=== PATIENT | male | born 1980 | race Caucasian/White ===

== ENCOUNTER 2018-05-02 08:26 | Emergency (ER) | payer OTHER, SELFPAY ==
[2018-05-02 08:37] VITALS: BP 130/86; PULSE 60; RESP 15; TEMP 36.4; O2SAT 99; BMI 29.1
--- NOTE | 2018-05-02 10:03 | ED.EYEPROB ---
HPI - Eye Problem General Chief complaint: Eye Problems Stated complaint: LEFT EYE PROBLEM Time Seen by Provider: 05/02/18 09:33 Source: patient Mode of arrival: ambulatory Limitations: no limitations History of Present Illness HPI Narrative: Patient is a 37-year-old male who presents with left eye pain. 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 However over the last 5 days he has had increasing eye pain. Sensitive to light. No gross drainage from his eyes. He was having problems with his right ear and now is having significant left eye pain. He went to the doctor his ear seems to be fine now his eye is causing him more problems. Duration: constant Location: left eye Place: work Mechanism: none Related Data Previous Rx's Medication Instructions Recorded gentamicin 2 drop EYE-LEFT Q4HRWA #5 ml 05/02/18 hydrocodone-acetaminophen [[place]] 1 tab PO Q6H PRN #10 tab 05/02/18 Allergies Allergy/AdvReac Type Severity Reaction Status Date / Time No Known Drug Allergies Allergy Verified 05/02/18 08:37 Review of Systems Review of Systems GENERAL: Denies chills,fever HEENT: +eye pain, Denies throat pain RESPIRATORY: Denies dyspnea, cough, wheezing CARDIOVASCULAR: Denies chest pain, palpitations GASTROINTESTINAL: Denies nausea, vomiting MUSCULOSKELETAL: Denies extremity pain, injury SKIN: No rash, no laceration, no pruritus NEUROLOGIC: Denies weakness, dizziness, headache, numbness 8 point review of systems is negative except for those stated above and HPI PFSH Social History Smoking Status: Current every day smoker Social History Smoking Status: Current every day smoker Exam Initial Vital Signs Initial Vital Signs: Vital Signs Temperature 97.6 F 05/02/18 08:37 Pulse Rate 60 05/02/18 08:37 Respiratory Rate 15 05/02/18 08:37 Blood Pressure 130/86 05/02/18 08:37 Pulse Oximetry 99 05/02/18 08:37 GENERAL: Well-appearing, well-nourished and in no acute distress. EYES: extraocular muscles intact pupils equal round reactive to light. Left eye was treated with proparacaine, stained with fluorescein. dye uptake and foreign body seen on left eye at 8 or 9:00 position CARDIOVASCULAR: peripheral pulses in tact, cap refill <2 sec RESPIRATORY: No respiratory distress, speaks in full sentences without difficulty EXTREMITIES: Normal range of motion, no clubbing or edema. Neurovascularly intact NEUROLOGICAL: Cranial nerves II through XII grossly intact. Normal gait and speech. SKIN: Warm, dry, no petechiae, no rashes or lesions. Procedures Foreign Body EYE Time Out performed: Yes Location: eye (L) Topical anesthetic used: proparacaine Foreign body: metal Technique: cotton tip swab, needle and electric rosario Procedure performed under: direct visualization with magnification and slit-lamp Post-procedure medication: ophthalmic antibiotic Patient tolerated procedure: well Complications: incomplete foreign body removal Course Orders Ordered: Discontinued Medications Diphtheria/Tetanus/Acell Pertussis (Adacel) 0.5 ml IM .ONCE ONE Stop: 05/02/18 10:02 Last Admin: 05/02/18 10:20 Dose: 0.5 ml Vital Signs - 8 hr 05/02/18 08:37 05/02/18 10:44 Temperature 97.6 F Pulse Rate 60 57 L Respiratory Rate 15 18 Blood Pressure 130/86 143/93 H Pulse Oximetry 99 100 MDM - Eye Problem MDM Narrative Medical decision making narrative: most of left eye foreign body was removed. However small amount still remains. Recommended patient see Ophthalmology for further evaluation and removal. Discharge Plan Departure Patient Disposition: Home Clinical Impression: Acute foreign body of left eye Qualifiers: Encounter type: initial encounter Qualified Code(s): T15.92XA - Foreign body on external eye, part unspecified, left eye, initial encounter Discharge Date/Time: 05/02/18 10:44 Interventions: ED Discharge Assessment Last Done: 05/02/18 10:44 Instructions: DI for Corneal Foreign Body-Eye Activity Restrictions/Additional Instructions: *You have been diagnosed with left eye foreign body *What to do: most of the foreign body has been removed however some small amount still remains. He should see an hydrostatic tester for further removal. DO NOT WERE CONTACT UNTIL THIS IS CLEARED *Continue to take medications as directed --> FAXED TO [facility] IN [place] gentamicin ophthalmic drops every 4 hr while awake [place] 1 tablet every 6 hr if needed for severe pain or at night to help with sleep *Follow up with your primary care provider in 2-3 days, call Ophthalmology tomorrow, or go to office 1st thing in the morning *Return to ER if you should have increasing pain, swelling any new, worsening or concerning symptoms Prescriptions: New gentamicin 0.3 % drops 2 drop EYE-LEFT Q4HRWA Qty: 5 RF: 0 hydrocodone-acetaminophen [[place]] 5-325 mg tablet 1 tab PO Q6H PRN (Reason: pain) Qty: 10 RF: 0 Referrals: Domonique Romero MD [Physician] - Daniel Bah MD [Physician] -
--- NOTE | 2018-05-02 10:08 | ED_ITS ---
HPI - Eye Problem General Chief complaint: Eye Problems Stated complaint: LEFT EYE PROBLEM Time Seen by Provider: 05/02/18 09:33 Source: patient Mode of arrival: ambulatory Limitations: no limitations History of Present Illness HPI Narrative: Patient is a 37-year-old male who presents with left eye pain. 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 However over the last 5 days he has had increasing eye pain. Sensitive to light. No gross drainage from his eyes. He was having problems with his right ear and now is having significant left eye pain. He went to the doctor his ear seems to be fine now his eye is causing him more problems. Duration: constant Location: left eye Place: work Mechanism: none Related Data Previous Rx's Medication Instructions Recorded gentamicin 2 drop EYE-LEFT Q4HRWA #5 ml 05/02/18 hydrocodone-acetaminophen [[place]] 1 tab PO Q6H PRN #10 tab 05/02/18 Allergies Allergy/AdvReac Type Severity Reaction Status Date / Time No Known Drug Allergies Allergy Verified 05/02/18 08:37 Review of Systems Review of Systems GENERAL: Denies chills,fever HEENT: +eye pain, Denies throat pain RESPIRATORY: Denies dyspnea, cough, wheezing CARDIOVASCULAR: Denies chest pain, palpitations GASTROINTESTINAL: Denies nausea, vomiting MUSCULOSKELETAL: Denies extremity pain, injury SKIN: No rash, no laceration, no pruritus NEUROLOGIC: Denies weakness, dizziness, headache, numbness 8 point review of systems is negative except for those stated above and HPI PFSH Social History Smoking Status: Current every day smoker Social History Smoking Status: Current every day smoker Exam Initial Vital Signs Initial Vital Signs: Vital Signs Temperature 97.6 F 05/02/18 08:37 Pulse Rate 60 05/02/18 08:37 Respiratory Rate 15 05/02/18 08:37 Blood Pressure 130/86 05/02/18 08:37 Pulse Oximetry 99 05/02/18 08:37 GENERAL: Well-appearing, well-nourished and in no acute distress. EYES: extraocular muscles intact pupils equal round reactive to light. Left eye was treated with proparacaine, stained with fluorescein. dye uptake and foreign body seen on left eye at 8 or 9:00 position CARDIOVASCULAR: peripheral pulses in tact, cap refill <2 sec RESPIRATORY: No respiratory distress, speaks in full sentences without difficulty EXTREMITIES: Normal range of motion, no clubbing or edema. Neurovascularly intact NEUROLOGICAL: Cranial nerves II through XII grossly intact. Normal gait and speech. SKIN: Warm, dry, no petechiae, no rashes or lesions. Procedures Foreign Body EYE Time Out performed: Yes Location: eye (L) Topical anesthetic used: proparacaine Foreign body: metal Technique: cotton tip swab, needle and electric rosario Procedure performed under: direct visualization with magnification and slit-lamp Post-procedure medication: ophthalmic antibiotic Patient tolerated procedure: well Complications: incomplete foreign body removal Course Orders Ordered: Discontinued Medications Diphtheria/Tetanus/Acell Pertussis (Adacel) 0.5 ml IM .ONCE ONE Stop: 05/02/18 10:02 Last Admin: 05/02/18 10:20 Dose: 0.5 ml Vital Signs - 8 hr 05/02/18 08:37 05/02/18 10:44 Temperature 97.6 F Pulse Rate 60 57 L Respiratory Rate 15 18 Blood Pressure 130/86 143/93 H Pulse Oximetry 99 100 MDM - Eye Problem MDM Narrative Medical decision making narrative: most of left eye foreign body was removed. However small amount still remains. Recommended patient see Ophthalmology for further evaluation and removal. Discharge Plan Departure Patient Disposition: Home Clinical Impression: Acute foreign body of left eye Qualifiers: Encounter type: initial encounter Qualified Code(s): T15.92XA - Foreign body on external eye, part unspecified, left eye, initial encounter Discharge Date/Time: 05/02/18 10:44 Interventions: ED Discharge Assessment Last Done: 05/02/18 10:44 Instructions: DI for Corneal Foreign Body-Eye Activity Restrictions/Additional Instructions: *You have been diagnosed with left eye foreign body *What to do: most of the foreign body has been removed however some small amount still remains. He should see an manager store for further removal. DO NOT WERE CONTACT UNTIL THIS IS CLEARED *Continue to take medications as directed --> FAXED TO [facility] IN [place] gentamicin ophthalmic drops every 4 hr while awake [place] 1 tablet every 6 hr if needed for severe pain or at night to help with sleep *Follow up with your primary care provider in 2-3 days, call Ophthalmology tomorrow, or go to office 1st thing in the morning *Return to ER if you should have increasing pain, swelling any new, worsening or concerning symptoms Prescriptions: New gentamicin 0.3 % drops 2 drop EYE-LEFT Q4HRWA Qty: 5 RF: 0 hydrocodone-acetaminophen [[place]] 5-325 mg tablet 1 tab PO Q6H PRN (Reason: pain) Qty: 10 RF: 0 Referrals: Domonique Romero MD [Physician] - Daniel Bah MD [Physician] -
[2018-05-02] MEDS: TET,DIPH,PERTUSS(ACELL),VAC/PF 0.5 ML SYRINGE IM (10:20)
[2018-05-02 10:44] VITALS: BP 143/93; PULSE 57; RESP 18; O2SAT 100
== END 2018-05-02 10:44 | disposition home or self-care (01) ==
PROVIDERS: Emergency Provider Emergency Medicine
DX: T15.92XA Foreign body on external eye, part unspecified, left eye, initial encounter (principal)
CPT/HCPCS: 65222; 90471; 99283; 90715

== ENCOUNTER → 2018-05-19 18:04 | Outpatient (CLI) | payer OTHER, SELFPAY | PROVIDERS: Visit Provider Physician Assistant | DX: L08.9 Local infection of the skin and subcutaneous tissue, unspecified (principal); S61.012A Laceration without foreign body of left thumb without damage to nail, initial encounter | CPT/HCPCS: 87070; 87075; 87077; 87147; 87186; 87205 ==

== ENCOUNTER → 2018-07-03 08:57 | Outpatient (CLI) | payer OTHER, SELFPAY ==
--- NOTE | 2018-07-03 09:00 | DI.RAD.S_ITS ---
PROCEDURE: XR KNEE RT 3V INDICATIONS: Pain and swelling R knee - tibial tuberosity TECHNIQUE: 3 views of the knee were acquired. COMPARISON: None. FINDINGS: Bones: There are postoperative findings from prior anterior cruciate ligament reconstruction. No hardware complication. Alignment is anatomic. No acute fractures or dislocations. No suspicious bony lesions. Soft tissues: No substantial suprapatellar joint effusion. No suspicious soft tissue calcifications. IMPRESSION: Postoperative findings of prior anterior cruciate ligament repair of the right knee. No acute radiographic abnormalities. Dictated by: Jack Palmer M.D. on 07/03/2018 at 19:40 Approved by: Jack Palmer M.D. on 07/03/2018 at 19:42
[2018-07-03 09:55] LABS: Alanine Aminotransferase 46 IU/L (21-72); Albumin 4.5 g/dL (3.5-5.0); Albumin Globulin Ratio 1.6 (1.0-2.8); Alkaline Phosphatase 56 U/L (38-126); Aspartate Aminotransferase 31 IU/L (17-59); BUN Creatinine Ratio 17.8 (6-22); Bilirubin Total 0.4 mg/dL (0.2-1.3); Blood Urea Nitrogen 16 mg/dL (9-20); Calcium 9.1 mg/dL (8.4-10.2); Carbon Dioxide 23 mmol/L (22-32); Chloride 106 mmol/L (98-107); Cholesterol 200 mg/dL (140-199); Estimated Glomerular Filt Rate > 60.0 mL/min (>60); Globulin 2.8 g/dL (1.7-4.1); Glucose 105 mg/dL (70-100); HDL Cholesterol 43 mg/dL (40-60); HEMOLYSIS < 15 (0-50); LDL Cholesterol Calculated 142 mg/dL (<100); Potassium 4.3 mmol/L (3.4-5.1); Sodium 139 mmol/L (137-145); Total Protein 7.3 g/dL (6.3-8.2); Triglycerides 77 mg/dL (35-150); Uric Acid 5.4 mg/dL (3.5-8.5)
[2018-07-03 10:23] LABS: Add Manual Diff / Slide Review NO; Basophils Absolute Auto 100 /uL (0-100); Basophils Percent Auto 1.1 % (0-2); Eosinophils Absolute Auto 200 /uL (0-450); Eosinophils Percent Auto 3.3 % (2-4); Hematocrit 48.6 % (41-53); Hemoglobin 16.5 g/dL (13.5-17.5); Lymphocytes Absolute Auto 1900 /uL (1100-4500); Lymphocytes Percent Auto 31.4 % (25-40); Mean Corpuscular Hemoglobin 30.4 PG (26-34); Mean Corpuscular Volume 89.6 fL (80-100); Monocytes Absolute Auto 700 /uL (0-900); Monocytes Percent Auto 12.2 % (3-14); Neutrophils Absolute Auto 3200 /uL (1500-7000); Platelet Count 280 X10^3/uL (150-400); Red Blood Cell Count 5.42 X10^6/uL (4.5-5.9); Red Cell Distribution Width 12.8 % (11.6-14.8); White Blood Cell Count 6.1 X10^3/uL (4.5-11.0)
[2018-07-03 10:54] LABS: HEMOLYSIS 21 (0-50); Iron 111 ug/dL (49-181)
[2018-07-03 11:05] LABS: Percent Iron Saturation 35 % (20-50); Total Iron Binding Capacity 313 ug/dL (261-462); Transferrin 247 mg/dL (206-381)
== END ==
PROVIDERS: PCP Physician Assistant; Visit Provider Physician Assistant
DX: M25.561 Pain in right knee (principal); G89.29 Other chronic pain; F17.200 Nicotine dependence, unspecified, uncomplicated; R53.83 Other fatigue; Z87.19 Personal history of other diseases of the digestive system; Z87.442 Personal history of urinary calculi; Z13.220 Encounter for screening for lipoid disorders; Z13.6 Encounter for screening for cardiovascular disorders
CPT/HCPCS: 36415; 73562; 80053; 80061; 83540; 83550; 84550; 85025

== ENCOUNTER → 2018-11-29 09:55 | Outpatient (CLI) | payer OTHER, SELFPAY ==
--- NOTE | 2018-11-29 09:58 | DI.RAD.S_ITS ---
PROCEDURE: XR CHEST 2V INDICATIONS: chest injury TECHNIQUE: 2 views of the chest were acquired. COMPARISON: [facility], , CHEST 1 VIEW, 11/14/2016, 21:55. FINDINGS: Surgical changes and devices: None. Lungs and pleura: Lungs are clear. No pleural effusions or pneumothorax. Mediastinum: Mediastinal contours are normal. Heart size is normal. Bones and chest wall: No suspicious bony abnormalities. An old injury of the distal right clavicle appears to be present, probably not significantly changed given differences in imaging technique since the previous exam. Soft tissues appear unremarkable. IMPRESSION: Negative chest. No acute cardiopulmonary process is evident. Dictated by: Roger Gardiner M.D. on 11/29/2018 at 9:11 Approved by: Roger Gardiner M.D. on 11/29/2018 at 9:11
== END ==
PROVIDERS: Family Provider Physician Assistant; PCP Physician Assistant; Visit Provider Physician Assistant
DX: S29.9XXA Unspecified injury of thorax, initial encounter (principal)
CPT/HCPCS: 71046

== ENCOUNTER → 2019-01-01 08:27 | Outpatient (CLI) | payer OTHER, SELFPAY ==
[2019-01-01 09:43] LABS: Cholesterol 225 mg/dL (140-199); HDL Cholesterol 42 mg/dL (40-60); LDL Cholesterol Calculated 155 mg/dL (<100); Triglycerides 141 mg/dL (35-150)
== END ==
PROVIDERS: PCP Physician Assistant; Visit Provider Physician Assistant
DX: E78.9 Disorder of lipoprotein metabolism, unspecified (principal)
CPT/HCPCS: 36415; 80061

== ENCOUNTER 2019-02-04 14:39 | Emergency (ER) | payer OTHER, SELFPAY ==
[2019-02-04 14:42] VITALS: BP 126/78; PULSE 68; RESP 16; TEMP 36.6; O2SAT 98; BMI 28.3
--- NOTE | 2019-02-04 15:21 | DI.CT.S_ITS ---
PROCEDURE: CT ABDOMEN PELVIS W CON INDICATIONS: LLQ pain TECHNIQUE: After the administration of intravenous contrast, 5 mm thick sections acquired from the diaphragm to the symphysis. 5 mm coronal and sagittal reformats were acquired. For radiation dose reduction, the following was used: automated exposure control, adjustment of mA and/or kV according to patient size. COMPARISON: None. FINDINGS: Image quality: Excellent. ABDOMEN: Lung bases: Lung bases are clear. Heart size is normal. Solid organs: Liver is normal in size and enhancement. Gallbladder is unremarkable. Biliary system is non dilated. Pancreas enhances normally. Spleen is normal in size and enhancement. No adrenal nodules. Kidneys demonstrate normal size and enhancement, without hydronephrosis. There are 2 tiny nonobstructing right renal stones and a 3 mm nonobstructing left renal stone. Peritoneum and bowel: Bowel loops demonstrate normal wall thickness and caliber. Sigmoid diverticulosis. Diverticulitis at the level of the rectosigmoid junction with inflammatory change and minimal stranding and fluid in the subjacent fat. No free air or abscess cavity. Nodes and vessels: No retroperitoneal or mesenteric adenopathy by size criteria. Aorta and inferior vena cava are normal in size. Miscellaneous: No ventral hernias. PELVIS: Genitourinary: Bladder wall thickness is normal. Miscellaneous: No inguinal hernias or adenopathy. Bones: No suspicious bony lesions. No vertebral body compression fractures. IMPRESSION: 1. Uncomplicated diverticulitis of the rectosigmoid junction. 2. Bilateral nonobstructing renal calculi. Dictated by: Nirmal Woodard M.D. on 02/04/2019 at 16:12 Approved by: Nirmal Woodard M.D. on 02/04/2019 at 16:15
--- NOTE | 2019-02-04 15:24 | ED_ITS ---
HPI - Abdominal Pain General Chief Complaint: Abdominal Pain Stated Complaint: bloating/pain/loose stools x3-4 days Time Seen by Provider: 02/04/19 15:06 Source: patient Mode of arrival: Ambulatory Limitations: no limitations History of Present Illness HPI narrative: Patient is a 38-year-old male history of diverticulitis and kidney stones. He states that he thinks his diverticulitis now it has been ongoing for the last few days. He has some left lower quadrant pain he feels nauseous at times but no vomiting decrease in appetite. I had 1 episode of bright red bloody stool but none since. He says that this smell is quite foul. Typically does get antibiotics and help clear him. He does have pain in his t esticles though and some pressure in his suprapubic area. He denies is any flank pain this does not feel like a kidney stone. MD complaint: abdominal pain Related Data Previous Rx's Medication Instructions Recorded rosuvastatin 10 mg tablet 10 mg PO BEDTIME #45 tab 01/18/19 ciprofloxacin HCl [Cipro] 500 mg PO Q12H #14 tab 02/04/19 metronidazole [Flagyl] 500 mg PO Q8H #21 tab 02/04/19 Allergies Allergy/AdvReac Type Severity Reaction Status Date / Time No Known Drug Allergies Allergy Verified 02/04/19 14:47 Review of Systems Review of Systems Narrative: GENERAL: Denies chills, fatigue, malaise, fever, sweats, travel HEENT: Denies sinus pain, ear pain, sore throat, difficulty swallowing, neck pain RESPIRATORY: Denies dyspnea, cough, wheezing, hemoptysis, sputum. CARDIOVASCULAR: Denies chest pain, palpitations, orthopnea, edema GASTROINTESTINAL: See HPI : Denies dysuria, frequency, incontinence, hematuria, urinary retention, flank pain. MUSCULOSKELETAL: Denies weakness, joint pain, or bony pain SKIN: No rash, no erythema, no pruritus NEUROLOGIC: Denies weakness, dizziness, headache, numbness, change in speech, confusion PSYCHIATRIC: No concerning psychosocial issues. 12 point review of systems is negative except for those stated above and HPI Patient History Medical History History of diverticulitis (Chronic) History of gout (Chronic) History of kidney stones (Chronic) Social History Smoking Status: Current every day smoker Tobacco: How many years used: 18 quit status: considering quitting (I would like to talk to Celina about starting Chanitix if it is an option.) second hand exposure: Yes ('a little bit) alcohol intake: current (a couple of beers a week. ) substance use type: marijuana (I smoke marijuana every day. ) alcohol intake frequency: 3 or more drinks per day Substance Use Type: marijuana Exam Initial Vital Signs Initial Vital Signs: Vital Signs Temperature 97.9 F 02/04/19 14:42 Pulse Rate 68 02/04/19 14:42 Respiratory Rate 16 02/04/19 14:42 Blood Pressure 126/78 02/04/19 14:42 Pulse Oximetry 98 02/04/19 14:42 GENERAL: Well-appearing, well-nourished and in no acute distress. HEENT: Head atraumatic,EOMI, pupils reactive, face symmetric CARDIOVASCULAR: Regular rate and rhythm without murmurs, rubs or gallops. RESPIRATORY: Breath sounds equal bilaterally, no wheezes rales or rhonchi. ABDOMEN: Soft, mild left lower quadrant pain no guarding or rebound : No CVA tenderness EXTREMITIES: Normal range of motion, no clubbing or edema. Neurovascularly intact NEUROLOGICAL: Alert and oriented x4.Normal gait and speech. SKIN: Warm, dry, no laceration, no petechiae, no rashes or lesions. Course Orders Ordered: ED Orders 02/04/19 15:21 CT abdomen pelvis w con Stat 02/04/19 15:38 Complete Blood Count AUTO DIFF Stat Comprehensive Metabolic Panel Stat Lipase Stat Vital Signs Vital signs: Vital Signs - 8 hr 02/04/19 14:42 02/04/19 17:00 Temperature 97.9 F 97.9 F Pulse Rate 68 63 Respiratory Rate 16 16 Blood Pressure 126/78 120/71 Pulse Oximetry 98 99 MDM - Abdominal Pain Lab Data Attestation: I reviewed the patient's lab results. Result diagrams: 02/04/19 15:38 02/04/19 15:38 Labs: Lab Results 02/04/19 02/04/19 Range/Units 15:38 15:38 WBC 15.0 H (4.5-11.0) X10^3/uL RBC 5.22 (4.5-5.9) X10^6/uL Hgb 15.9 (13.5-17.5) g/dL Hct 46.6 (41-53) % MCV 89.3 (80-100) fL MCH 30.6 (26-34) PG MCHC 34.2 (30-36) % RDW 12.5 (11.6-14.8) % Plt Count 243 (150-400) X10^3/uL Neut % (Auto) 74.9 (50-75) % Lymph % (Auto) 13.4 L (25-40) % Evang[place] % (Auto) 10.3 (3-14) % Eos % (Auto) 1.0 L (2-4) % Baso % (Auto) 0.4 (0-2) % Neut # (Auto) 35385 H (5601-5740) /uL Lymph # (Auto) 2000 (8827-3467) /uL Evangeline # (Auto) 1600 H (0-900) /uL Eos # (Auto) 200 (0-450) /uL Baso # (Auto) 100 (0-100) /uL Sodium 138 (137-145) mmol/L Potassium 3.9 (3.4-5.1) mmol/L Chloride 104 (98-107) mmol/L Carbon Dioxide 25 (22-32) mmol/L BUN 13 (9-20) mg/dL Creatinine 0.90 (0.66-1.25) mg/dL Estimated GFR > 60.0 (>60) mL/min BUN/Creatinine Ratio 14.4 (6-22) Glucose 91 (70-100) mg/dL Calcium 9.3 (8.4-10.2) mg/dL Total Bilirubin 0.8 (0.2-1.3) mg/dL AST 33 (17-59) IU/L ALT 51 H (<50) IU/L Alkaline Phosphatase 85 (38-126) U/L Total Protein 7.3 (6.3-8.2) g/dL Albumin 4.5 (3.5-5.0) g/dL Globulin 2.8 (1.7-4.1) g/dL Albumin/Globulin Ratio 1.6 (1.0-2.8) Lipase 53 (23-300) U/L Point of care testing: Urine Dip Bedside Urine Glucose Negative Bedside Urine Bilirubin - Negative Bedside Urine Ketone +/- 5 Urine Specific [place] 1.015 Bedside Urine Occult Blood - Negative Bedside Urine pH 6.0 Bedside Urine Protein - Negative Bedside Urine Urobilinogen - Negative Bedside Urine Nitrite - Negative Bedside Urine Leukocytes - Negative Esterase Imaging Data CT scan - abdomen: Radiologist's impression: PROCEDURE: CT ABDOMEN PELVIS W CON INDICATIONS: LLQ pain TECHNIQUE: After the administration of intravenous contrast, 5 mm thick sections acquired from the diaphragm to the symphysis. 5 mm coronal and sagittal reformats were acquired. For radiation dose reduction, the following was used: automated exposure control, adjustment of mA and/or kV according to patient size. COMPARISON: None. FINDINGS: Image quality: Excellent. ABDOMEN: Lung bases: Lung bases are clear. Heart size is normal. Solid organs: Liver is normal in size and enhancement. Gallbladder is unremarkable. Biliary system is non dilated. Pancreas enhances normally. Spleen is normal in size and enhancement. No adrenal nodules. Kidneys demonstrate normal size and enhancement, without hydronephrosis. There are 2 tiny nonobstructing right renal stones and a 3 mm nonobstructing left renal stone. Peritoneum and bowel: Bowel loops demonstrate normal wall thickness and caliber. Sigmoid diverticulosis. Diverticulitis at the level of the rectosigmoid junction with inflammatory change and minimal stranding and fluid in the subjacent fat. No free air or abscess cavity. Nodes and vessels: No retroperitoneal or mesenteric adenopathy by size crite mike. Aorta and inferior vena cava are normal in size. Miscellaneous: No ventral hernias. PELVIS: Genitourinary: Bladder wall thickness is normal. Miscellaneous: No inguinal hernias or adenopathy. Bones: No suspicious bony lesions. No vertebral body compression fractures. IMPRESSION: 1. Uncomplicated diverticulitis of the rectosigmoid junction. 2. Bilateral nonobstructing renal calculi. Dictated by: Nirmal Woodard M.D. on 02/04/2019 at 16:12 MDM Narrative Medical decision making narrative: The patient has leukocytosis of 15. Diverticulitis identified on CT. No complications will start him on Cipro and Flagyl. Discharge Plan Departure Patient Disposition: Home Clinical Impression: Diverticulitis Discharge Date/Time: 02/04/19 17:00 Instructions: DI for Diverticulitis Activity Restrictions/Additional Instructions: *You have been diagnosed with diverticulitis *What to do: *Continue to take medications as directed--> SENT TO [facility] IN [place] Cipro 500 mg twice a day for 7 days Flagyl 500 mg 3 times a day for 7 days *Follow up with your primary care provider in 2-3 days *Return to ER if you should have increasing abdominal pain bloody bowel meds persistent vomiting or any new, worsening or concerning symptoms Prescriptions: New ciprofloxacin HCl [Cipro] 500 mg tablet 500 mg PO Q12H Qty: 14 RF: 0 metronidazole [Flagyl] 500 mg tablet 500 mg PO Q8H Qty: 21 RF: 0 No Action rosuvastatin 10 mg tablet 10 mg PO BEDTIME Qty: 45 RF: 1 Referrals: Sarika Marie PA-C [Primary Care Provider] -
[2019-02-04 15:47] LABS: Add Manual Diff / Slide Review NO; Basophils Absolute Auto 100 /uL (0-100); Basophils Percent Auto 0.4 % (0-2); Eosinophils Absolute Auto 200 /uL (0-450); Hematocrit 46.6 % (41-53); Hemoglobin 15.9 g/dL (13.5-17.5); Lymphocytes Absolute Auto 2000 /uL (1100-4500); Lymphocytes Percent Auto 13.4 % (25-40); Mean Corpuscular HGB Conc 34.2 % (30-36); Mean Corpuscular Hemoglobin 30.6 PG (26-34); Mean Corpuscular Volume 89.3 fL (80-100); Monocytes Absolute Auto 1600 /uL (0-900); Monocytes Percent Auto 10.3 % (3-14); Neutrophils Absolute Auto 11300 /uL (1500-7000); Neutrophils Percent Auto 74.9 % (50-75); Platelet Count 243 X10^3/uL (150-400); Red Blood Cell Count 5.22 X10^6/uL (4.5-5.9); Red Cell Distribution Width 12.5 % (11.6-14.8)
[2019-02-04 15:59] LABS: Alanine Aminotransferase 51 IU/L (<50); Albumin 4.5 g/dL (3.5-5.0); Albumin Globulin Ratio 1.6 (1.0-2.8); Alkaline Phosphatase 85 U/L (38-126); Aspartate Aminotransferase 33 IU/L (17-59); BUN Creatinine Ratio 14.4 (6-22); Bilirubin Total 0.8 mg/dL (0.2-1.3); Blood Urea Nitrogen 13 mg/dL (9-20); Calcium 9.3 mg/dL (8.4-10.2); Carbon Dioxide 25 mmol/L (22-32); Chloride 104 mmol/L (98-107); Estimated Glomerular Filt Rate > 60.0 mL/min (>60); Globulin 2.8 g/dL (1.7-4.1); Glucose 91 mg/dL (70-100); HEMOLYSIS < 15 (0-50); Lipase 53 U/L (23-300); Potassium 3.9 mmol/L (3.4-5.1); Sodium 138 mmol/L (137-145); Total Protein 7.3 g/dL (6.3-8.2)
[2019-02-04 17:00] VITALS: BP 120/71; PULSE 63; RESP 16; TEMP 36.6; O2SAT 99
== END 2019-02-04 17:00 | disposition home or self-care (01) ==
PROVIDERS: Emergency Provider Emergency Medicine; PCP Physician Assistant
DX: K57.92 Diverticulitis of intestine, part unspecified, without perforation or abscess without bleeding (principal); K92.1 Melena; R11.0 Nausea; N50.819 Testicular pain, unspecified; Z87.442 Personal history of urinary calculi; F12.920 Cannabis use, unspecified with intoxication, uncomplicated
CPT/HCPCS: 36415; 74177; 80053; 81003; 83690; 85025; 99282; 99284

== ENCOUNTER → 2019-03-19 08:18 | Outpatient (CLI) | payer OTHER, SELFPAY ==
[2019-03-19 10:28] LABS: Alanine Aminotransferase 118 IU/L (<50); Albumin 4.7 g/dL (3.5-5.0); Alkaline Phosphatase 75 U/L (38-126); Aspartate Aminotransferase 74 IU/L (17-59); BUN Creatinine Ratio 15.6 (6-22); Bilirubin Total 0.7 mg/dL (0.2-1.3); Blood Urea Nitrogen 14 mg/dL (9-20); Calcium 9.7 mg/dL (8.4-10.2); Carbon Dioxide 23 mmol/L (22-32); Chloride 107 mmol/L (98-107); Cholesterol 155 mg/dL (140-199); Estimated Glomerular Filt Rate > 60.0 mL/min (>60); Globulin 2.4 g/dL (1.7-4.1); Glucose 103 mg/dL (70-100); HDL Cholesterol 45 mg/dL (40-60); HEMOLYSIS < 15 (0-50); LDL Cholesterol Calculated 78 mg/dL (<100); Potassium 4.9 mmol/L (3.4-5.1); Sodium 138 mmol/L (137-145); Total Protein 7.1 g/dL (6.3-8.2); Triglycerides 160 mg/dL (35-150)
== END ==
PROVIDERS: PCP Physician Assistant; Visit Provider Physician Assistant
DX: E78.2 Mixed hyperlipidemia (principal)
CPT/HCPCS: 36415; 80053; 80061

== ENCOUNTER → 2019-05-12 15:19 | Outpatient (CLI) | payer OTHER, SELFPAY ==
[2019-05-12 16:17] LABS: Add Manual Diff / Slide Review NO; Basophils Absolute Auto 0 /uL (0-100); Basophils Percent Auto 0.1 % (0-2); Eosinophils Absolute Auto 100 /uL (0-450); Eosinophils Percent Auto 0.7 % (2-4); Hematocrit 47.1 % (41-53); Hemoglobin 16.2 g/dL (13.5-17.5); Lymphocytes Absolute Auto 1600 /uL (1100-4500); Lymphocytes Percent Auto 8.5 % (25-40); Mean Corpuscular HGB Conc 34.5 % (30-36); Mean Corpuscular Hemoglobin 30.6 PG (26-34); Mean Corpuscular Volume 88.9 fL (80-100); Monocytes Absolute Auto 1900 /uL (0-900); Monocytes Percent Auto 9.8 % (3-14); Neutrophils Absolute Auto 15600 /uL (1500-7000); Neutrophils Percent Auto 80.9 % (50-75); Platelet Count 267 X10^3/uL (150-400); Red Blood Cell Count 5.29 X10^6/uL (4.5-5.9); Red Cell Distribution Width 12.9 % (11.6-14.8); White Blood Cell Count 19.3 X10^3/uL (4.5-11.0)
[2019-05-12 17:09] LABS: Alanine Aminotransferase 60 IU/L (<50); Albumin 4.7 g/dL (3.5-5.0); Albumin Globulin Ratio 1.5 (1.0-2.8); Alkaline Phosphatase 90 U/L (38-126); Aspartate Aminotransferase 43 IU/L (17-59); BUN Creatinine Ratio 15.6 (6-22); Bilirubin Total 0.8 mg/dL (0.2-1.3); Blood Urea Nitrogen 14 mg/dL (9-20); Calcium 9.9 mg/dL (8.4-10.2); Carbon Dioxide 26 mmol/L (22-32); Chloride 104 mmol/L (98-107); Estimated Glomerular Filt Rate > 60.0 mL/min (>60); Globulin 3.2 g/dL (1.7-4.1); Glucose 96 mg/dL (70-100); HEMOLYSIS < 15 (0-50); Potassium 3.9 mmol/L (3.4-5.1); Sodium 140 mmol/L (137-145); Total Protein 7.9 g/dL (6.3-8.2)
== END ==
PROVIDERS: PCP Physician Assistant
DX: K57.92 Diverticulitis of intestine, part unspecified, without perforation or abscess without bleeding (principal)
CPT/HCPCS: 36415; 80053; 85025

== ENCOUNTER → 2020-06-06 14:15 | Outpatient (CLI) | payer OTHER, SELFPAY ==
--- NOTE | 2020-06-06 14:17 | DI.RAD.S_ITS ---
PROCEDURE: XR SHOULDER RT MIN 2V INDICATIONS: shoulder strain reduced ROM TECHNIQUE: 3 views of the shoulder were acquired. COMPARISON: None. FINDINGS: Bones: Mild right acromioclavicular joint osteoarthritis. Curvilinear ossification noted superior to the distal clavicle which could represent heterotopic calcification versus old avulsion injury. No suspicious bony lesions. Visualized ribs appear intact. Soft tissues: No suspicious soft tissue calcifications. IMPRESSION: 1. Mild right acromioclavicular joint osteoarthritis. 2. Heterotopic calcification adjacent to the distal right clavicle versus chronic avulsion injury. Dictated by: Darya Blum MD, PhD on 06/06/2020 at 14:45 Approved by: Darya Blum MD, PhD on 06/06/2020 at 14:47
== END ==
PROVIDERS: Referring Provider Student in an Organized Health Care Education/Training Program; Visit Provider Student in an Organized Health Care Education/Training Program
DX: S43.401A Unspecified sprain of right shoulder joint, initial encounter (principal); M19.011 Primary osteoarthritis, right shoulder
CPT/HCPCS: 73030

== ENCOUNTER 2020-06-11 16:54 | Emergency (ER) | payer OTHER, SELFPAY ==
[2020-06-11 16:59] VITALS: BP 139/87; PULSE 60; RESP 16; TEMP 36.6; O2SAT 98; BMI 25.0
[2020-06-11 17:48] LABS: Bacteria Urine None Seen
--- NOTE | 2020-06-11 18:01 | DI.CT.S_ITS ---
PROCEDURE: CT KIDNEY URETER BLADDER (KUB) INDICATIONS: severe RLQ and flank pain, hematuria TECHNIQUE: Noncontrast 5 mm thick sections acquired from the diaphragms to the symphysis. 5 mm thick coronal and sagittal reformats were then performed. For radiation dose reduction, the following was used: automated exposure control, adjustment of mA and/or kV according to patient size. COMPARISON: [facility], CT, KIDNEY/ URETER/BLADDER, 10/17/2016, 10:04. FINDINGS: Image quality: Excellent. Lung bases: Lung bases are clear. Heart size is normal. Tiny hiatal hernia. Urinary system: There is a 3 mm in the mid right ureter. There is mild right hydronephrosis. There is mild right ureteral stranding and perinephric stranding. Bilateral nonobstructive renal calculi are present. No left hydronephrosis. Both kidneys are normal in size. Both ureters appear non-dilated throughout their expected courses. Bladder wall thickness is normal; no calcified bladder stones. Other solid organs: Liver is normal in size. Gallbladder is normal. Pancreas is normal in contours. Spleen is normal in size. No adrenal nodules. Peritoneum and bowel: There are scattered renal colonic diverticula. No diverticulitis. Unenhanced bowel loops demonstrate normal wall thickness and caliber. Normal appendix. No free fluid or air. Nodes and vessels: No retroperitoneal or mesenteric adenopathy by size criteria. Aorta and inferior vena cava are normal in caliber. Abdominal wall: No ventral hernias. Pelvis: No free pelvic fluid. No inguinal hernias or adenopathy. Bones: No suspicious bony lesions. No vertebral body compression fractures. IMPRESSION: 1. A 3 mm stone within the mid right ureter causing mild right hydronephrosis. 2. Nephrolithiasis with multiple renal nonobstructive stones bilaterally. 3. Diverticulosis without diverticulitis. 4. Normal appendix Dictated by: Enoc Juan M.D. on 06/11/2020 at 17:41 Approved by: Enoc Juan M.D. on 06/11/2020 at 17:48
[2020-06-11 18:03] VITALS: PULSE 78; O2SAT 99
[2020-06-11 18:07] LABS: Amorphous Sediment Urine 1+; Culture Indicated Urine Cult Not Indicated; RBC Urine >100/HPF (0-5/HPF); Squamous Epithelial Cell Urine 0-1 /HPF (0-5/HPF); WBC Urine 0-1/HPF (0-5/HPF)
--- NOTE | 2020-06-11 18:23 | ED.ABDPAIN ---
HPI - Abdominal Pain General Chief Complaint: Abdominal Pain Stated Complaint: RIGHT SIDE BICEP INJURY BACK PAIN Time Seen by Provider: 06/11/20 17:26 Source: patient Mode of arrival: Ambulatory Limitations: no limitations History of Present Illness HPI narrative: 39-year-old male daily smoker with history of kidney stones and diverticulitis presents with a chief complaint of relatively sudden onset right lower quadrant pain with radiation into his right flank and also right testicle. He denies any fever or chills nor dietary change. He is nauseated but denies any vomiting. He has a history of kidney stones and states he can not remember of this is what they feel like. He denies any obvious provocation or palliation. He states the pain comes in waves that seemed to have no pattern. He states that it is severe, sharp and stabbing in nature. He denies any urinary complaints such as dysuria, frequency, urgency or hematuria. MD complaint: flank pain Onset (ago): hour(s) Pain Consistency: constant Location: RLQ and R flank Severity: severe Severity scale (1-10): 9 Quality: stabbing and sharp Radiation: R flank Relieving factors: nothing Exacerbating factors: nothing Associated symptoms: denies other symptoms Related Data Previous Rx's Medication Instructions Recorded rosuvastatin 10 mg tablet 10 mg PO BEDTIME #90 tab 05/16/19 amoxicillin 875 mg-potassium 1 tab PO BID #14 tab 12/25/19 clavulanate 125 mg tablet hydrocodone-acetaminophen 1 tab PO Q4-6H PRN #10 tab 06/11/20 ketorolac 10 mg PO Q6H PRN #14 tab 06/11/20 ondansetron 4 mg PO TID-QID PRN #10 tab 06/11/20 tamsulosin [Flomax] 0.4 mg PO DAILY #10 cap 06/11/20 Allergies Allergy/AdvReac Type Severity Reaction Status Date / Time No Known Drug Allergies Allergy Verified 06/11/20 17:02 Review of Systems Constitutional Constitutional: Denies chills, Denies fatigue, Denies fever(s), Denies frequent falls, Denies lethargy and Denies weakness Eyes Eyes: Denies change in vision, Denies eye discharge, Denies irritation and Denies loss of vision ENT Ears, Nose, Mouth, and Throat: Denies change in voice, Denies dizziness, Denies neck pain, Denies sore throat and Denies throat swelling Cardiovascular Cardiovascular: Denies chest pain, Denies irregular heart rhythm, Denies lightheadedness, Denies palpitations, Denies dyspnea, Denies dyspnea on exertion and Denies orthopnea Respiratory Respiratory: Denies cough, Denies dyspnea, Denies dyspnea on exertion and Denies wheezing Gastrointestinal Gastrointestinal: Denies abdominal pain, Denies change in bowel habits, Denies diarrhea, Denies nausea and Denies vomiting Genitourinary Genitourinary: Reports flank pain and Reports testicular pain Genitourinary: Reports flank pain Musculoskeletal Musculoskeletal: Denies neck pain and Denies numbness Integumentary/Breasts Skin/Breast: Denies pruritus, Denies erythema, Denies rash and Denies wounds Neurologic Neurologic: Denies behavioral changes, Denies confusion, Denies dizziness, Denies frequent falls, Denies loss of vision, Denies numbness and Denies weakness Psychiatric Psychiatric: Denies anxiety, Denies behavioral changes, Denies confusion, Denies depression, Denies homicidal ideation and Denies suicidal ideation Endocrine Endocrine: Denies fatigue, Denies flushing and Denies palpitations Hematologic/Lymphatic Hematologic/Lymphatic: Denies easy bruising Allergic/Immunologic Allergic/Immunologic: Denies urticaria, Denies throat swelling and Denies wheezing Patient History Medical History (Updated 06/11/20 @ 19:06 by Bal Chu DO) History of diverticulitis History of gout History of kidney stones Social History Smoking Status: Current every day smoker Tobacco: How many years used: 18 quit status: considering quitting (I would like to talk to Celina about starting Chanitix if it is an option.) second hand exposure: Yes ('a little bit) alcohol intake: current (a couple of beers a week. ) substance use type: marijuana (I smoke marijuana every day. ) Smoking Status: Current every day smoker alcohol intake frequency: 3 or more drinks per day Substance Use Type: marijuana Exam Narrative Exam Narrative: GENERAL: [39] year old patient appears stated age. Well-nourished, well-developed patient, in obvious distress, clearly in pain, rocking back and forth and rubbing his right flank HEAD: Atraumatic. Normocephalic. EYES: Pupils equal round and reactive. Extraocular motions intact. No scleral icterus. No injection or drainage. ENT: Nose without bleeding, purulent drainage. Throat without erythema, tonsillar hypertrophy or exudate. Airway patent. NECK: Trachea midline. Non tender CARDIOVASCULAR: Regular rate and rhythm without murmurs, gallops, or rubs. RESPIRATORY: Clear to auscultation. Breath sounds equal bilaterally. No wheezes, rales, or rhonchi. GASTROINTESTINAL: Abdomen soft, non-tender, nondistended. Bowel sounds present in all 4 quadrants. EXTREMITIES: No edema or joint tenderness. BACK: Nontender without deformity or crepitance. No flank tenderness. NEURO: AOx3. SKIN: No rash or erythema of visible areas Initial Vital Signs Initial Vital Signs: Vital Signs Temperature 97.8 F 06/11/20 16:59 Pulse Rate 60 06/11/20 16:59 Respiratory Rate 16 06/11/20 16:59 Blood Pressure 139/87 06/11/20 16:59 Pulse Oximetry 98 06/11/20 16:59 Course Orders Ordered: ED Orders 06/11/20 17:20 Urine Microscopic Stat 06/11/20 18:01 CT kidney ureter bladder (KUB) Stat 06/11/20 18:18 Basic Metabolic Panel Stat Complete Blood Count AUTO DIFF Stat Discontinued Medications Sodium Chloride (Normal Saline 0.9%) 1,000 mls @ 1,000 mls/hr IV BOLUS ONE Stop: 06/11/20 18:59 Last Infusion: 06/11/20 19:18 Dose: 0 mls/hr Documented by: Admin: 06/11/20 18:26 Dose: 1,000 mls/hr Documented by: KAMRAN Ketorolac Tromethamine (Ketorolac 60 Mg/2 Ml Vial) 15 mg IV NOW ONE Stop: 06/11/20 18:01 Last Admin: 06/11/20 18:26 Dose: 15 mg Documented by: KAMRAN Ondansetron HCl (Ondansetron 4 Mg/2 Ml Inj) 4 mg IV NOW ONE Stop: 06/11/20 18:22 Last Admin: 06/11/20 18:26 Dose: 4 mg Documented by: KAMRAN Vital Signs Vital signs: Vital Signs - 8 hr 06/11/20 18:03 06/11/20 18:30 03/29/21 19:00 Pulse Rate 78 57 L 62 Pulse Oximetry 99 97 97 MDM - Abdominal Pain Lab Data Result diagrams: 06/11/20 18:18 06/11/20 18:18 Labs: Lab Results 06/11/20 06/11/20 06/11/20 Range/Units 17:20 18:18 18:18 WBC 15.6 H (4.5-11.0) X10^3/uL RBC 5.04 (4.5-5.9) X10^6/uL Hgb 15.6 (13.5-17.5) g/dL Hct 45.1 (41-53) % MCV 89.5 (80-100) fL MCH 30.9 (26-34) PG MCHC 34.6 (30-36) % RDW 12.6 (11.6-14.8) % Plt Count 245 (150-400) X10^3/uL Neut % (Auto) 76.6 H (50-75) % Lymph % (Auto) 13.5 L (25-40) % [place] % (Auto) 8.5 (3-14) % Eos % (Auto) 1.0 L (2-4) % Baso % (Auto) 0.4 (0-2) % Neut # (Auto) 35742 H (4539-3488) /uL Lymph # (Auto) 2100 (3570-8473) /uL [place] # (Auto) 1300 H (0-900) /uL Eos # (Auto) 200 (0-450) /uL Baso # (Auto) 100 (0-100) /uL Sodium 139 (137-145) mmol/L Potassium 4.3 (3.4-5.1) mmol/L Chloride 109 H (98-107) mmol/L Carbon Dioxide 21 L (22-32) mmol/L BUN 15 (9-20) mg/dL Creatinine 0.84 (0.66-1.25) mg/dL Estimated GFR > 60.0 (>60) mL/min BUN/Creatinine Ratio 17.9 (6-22) Glucose 107 H (70-100) mg/dL Calcium 9.5 (8.4-10.2) mg/dL Urine RBC >100/hpf H (0-5/HPF) Urine WBC 0-1/hpf (0-5/HPF) Ur Squamous Epith Cells 0-1 /hpf (0-5/HPF) Amorphous Sediment 1+ Urine Bacteria None seen (None) Ur Culture Indicated? Cult not indicated Point of care testing: Urine Dip Bedside Urine Glucose Negative Bedside Urine Bilirubin - Negative Bedside Urine Ketone - Negative Urine Specific Balm 1.030 Bedside Urine Occult Blood +++ Bedside Urine pH 6.0 Bedside Urine Protein - Negative Bedside Urine Urobilinogen - Negative Bedside Urine Nitrite - Negative Bedside Urine Leukocytes - Negative Esterase Imaging Data CT scan - abdomen/pelvis: Radiologist's Impression: [address] [id number] Scan ReportSigned Patient: Keyshawn العلي GMR#: [id number]: [id number]:[id number]/Sex: 39 / MDate of Service: 06/11/20Loc: EDAccession Number: [id number] Procedure: CT kidney ureter bladder (KUB) Ordering Provider: Bal Chu D.O. PROCEDURE: CT KIDNEY URETER BLADDER (KUB) INDICATIONS: severe RLQ and flank pain, hematuria TECHNIQUE: Noncontrast 5 mm thick sections acquired from the diaphragms to the symphysis. 5 mm thick coronal and sagittal reformats were then performed. For radiation dose reduction, the following was used: automated exposure control, adjustment of mA and/or kV according to patient size. COMPARISON: [facility], CT, KIDNEY/ URETER/BLADDER, 10/17/2016, 10:04. FINDINGS: Image quality: Excellent. Lung bases: Lung bases are clear. Heart size is normal. Tiny hiatal hernia. Urinary system: There is a 3 mm in the mid right ureter. There is mild right hydronephrosis. There is mild right ureteral stranding and perinephric stranding. Bilateral nonobstructive renal calculi are present. No left hydronephrosis. Both kidneys are normal in size. Both ureters appear non-dilated throughout their expected courses. Bladder wall thickness is normal; no calcified bladder stones. Other solid organs: Liver is normal in size. Gallbladder is normal. Pancreas is normal in contours. Spleen is normal in size. No adrenal nodules. Peritoneum and bowel: There are scattered renal colonic diverticula. No diverticulitis. Unenhanced bowel loops demonstrate normal wall thickness and caliber. Normal appendix. No free fluid or air. Nodes and vessels: No retroperitoneal or mesenteric adenopathy by size criteria. Aorta and inferior vena cava are normal in caliber. Abdominal wall: No ventral hernias. Pelvis: No free pelvic fluid. No inguinal hernias or adenopathy. Bones: No suspicious bony lesions. No vertebral body compression fractures. IMPRESSION: 1. A 3 mm stone within the mid right ureter causing mild right hydronephrosis. 2. Nephrolithiasis with multiple renal nonobstructive stones bilaterally. 3. Diverticulosis without diverticulitis. 4. Normal appendix Dictated by: Enoc Juan M.D. on 06/11/2020 at 17:41 Approved by: Enoc Juan M.D. on 06/11/2020 at 17:48 [facility] Narrative Medical decision making narrative: Patient with sudden onset right flank pain with radiation into testicle in groin. No provocation or palliation, it blood in urine, CT confirms 3 mm stone. Patient discomfort very well controlled with above-stated therapies. No evidence of infection or renal failure. No suggestion of sepsis. Patient understands and agrees with the plan and diagnosis, return precautions, and understands need for follow-up. His questions have been answered to his apparent satisfaction Discharge Plan Departure Patient Disposition: Home Clinical Impression: Kidney stone Instructions: DI for Kidney Stones Activity Restrictions/Additional Instructions: *You have been diagnosed with [3 mm right-sided kidney stone] *What to do: *Take medications as directed: Prescriptions to [facility] at your request *Follow up with your primary care provider in 2-3 days, call for an appointment. Let them know you were seen in the Emergency Department and that we ask that you be seen in follow up *Return to ER if you should have any new, worsening or concerning symptoms, such as [increasing pain, fever, shaking chills, uncontrolled vomiting or other bothersome symptoms] Prescriptions: New hydrocodone-acetaminophen 5-325 mg tablet 1 tab PO Q4-6H PRN (Reason: pain) Qty: 10 RF: 0 ketorolac 10 mg tablet 10 mg PO Q6H PRN (Reason: pain) Qty: 14 RF: 0 tamsulosin [Flomax] 0.4 mg capsule 0.4 mg PO DAILY Qty: 10 RF: 0 ondansetron 4 mg tablet,disintegrating 4 mg PO TID-QID PRN (Reason: nausea and vomiting) Qty: 10 RF: 0 No Action amoxicillin-pot clavulanate [Augmentin] 875-125 mg tablet 1 tab PO BID Qty: 14 RF: 0 rosuvastatin 10 mg tablet 10 mg PO BEDTIME Qty: 90 RF: 3 Referrals: Foreign Thompson MD [Physician] -
[2020-06-11] MEDS: SODIUM CHLORIDE 0.9% 1,000 ML 1000 ML IV (18:26)
[2020-06-11] MEDS: ONDANSETRON 4 MG/2 ML INJ IV (18:26)
[2020-06-11] MEDS: KETOROLAC 60 MG/2 ML VIAL 15 MG IV (18:26)
[2020-06-11 18:30] VITALS: PULSE 57; O2SAT 97
[2020-06-11 18:33] LABS: Add Manual Diff / Slide Review NO; Basophils Absolute Auto 100 /uL (0-100); Basophils Percent Auto 0.4 % (0-2); Eosinophils Absolute Auto 200 /uL (0-450); Hematocrit 45.1 % (41-53); Hemoglobin 15.6 g/dL (13.5-17.5); Lymphocytes Absolute Auto 2100 /uL (1100-4500); Lymphocytes Percent Auto 13.5 % (25-40); Mean Corpuscular HGB Conc 34.6 % (30-36); Mean Corpuscular Hemoglobin 30.9 PG (26-34); Mean Corpuscular Volume 89.5 fL (80-100); Monocytes Absolute Auto 1300 /uL (0-900); Monocytes Percent Auto 8.5 % (3-14); Neutrophils Absolute Auto 11900 /uL (1500-7000); Neutrophils Percent Auto 76.6 % (50-75); Platelet Count 245 X10^3/uL (150-400); Red Blood Cell Count 5.04 X10^6/uL (4.5-5.9); Red Cell Distribution Width 12.6 % (11.6-14.8); White Blood Cell Count 15.6 X10^3/uL (4.5-11.0)
[2020-06-11 18:46] LABS: BUN Creatinine Ratio 17.9 (6-22); Blood Urea Nitrogen 15 mg/dL (9-20); Calcium 9.5 mg/dL (8.4-10.2); Carbon Dioxide 21 mmol/L (22-32); Chloride 109 mmol/L (98-107); Estimated Glomerular Filt Rate > 60.0 mL/min (>60); Glucose 107 mg/dL (70-100); Sodium 139 mmol/L (137-145)
[2020-06-11 18:48] LABS: HEMOLYSIS 52 (0-50)
[2020-06-11 18:49] LABS: Potassium 4.3 mmol/L (3.4-5.1)
[2020-06-11 19:00] VITALS: PULSE 62; O2SAT 97
== END 2020-06-11 19:19 | disposition home or self-care (01) ==
PROVIDERS: Emergency Medicine; Emergency Provider Emergency Medicine
DX: N20.0 Calculus of kidney (principal)
CPT/HCPCS: 36415; 74176; 80048; 81003; 81015; 85025; 96360; 96361; 96374; 96375; 99284; J1885; J2405

== ENCOUNTER 2020-09-21 02:26 | Emergency (ER) | payer OTHER, SELFPAY ==
[2020-09-21] VITALS (7 sets, daily range): BP systolic 129–137; BP diastolic 69–87; PULSE 82–94; RESP 16; TEMP 37.3; O2SAT 94–97; BMI 28.3
--- NOTE | 2020-09-21 02:43 | DI.CT.S_ITS ---
PROCEDURE: CT ABDOMEN PELVIS W CON INDICATIONS: history of diverticulitis, on ABX, worsening pain TECHNIQUE: After the administration of intravenous contrast, axial sections acquired from the lung bases to the pubic symphysis. Coronal and sagittal reformats were performed. For radiation dose reduction, the following was used: automated exposure control, adjustment of mA and/or kV according to patient size. COMPARISON: [facility], CT, KIDNEY/ URETER/BLADDER, 10/17/2016, 10:04. [facility], CT, CT ABDOMEN PELVIS W CON, 02/04/2019, 15:48. FINDINGS: Image quality: Excellent. Lung bases: Bibasilar dependent atelectasis. Heart: No significant findings. ABDOMEN: Liver: Unremarkable. Gallbladder: Unremarkable. Biliary ducts: Unremarkable. Pancreas: Unremarkable. Spleen: Unremarkable. Adrenal Glands: Unremarkable. Kidneys and Ureters: Small nonobstructive renal calculi are noted bilaterally, measuring 4 mm in left kidney and 2 mm in right kidney. No hydronephrosis. Stomach and Bowel: There are sigmoid diverticula. There is marked focal thickening and inflammatory stranding in the sigmoid colon consistent with acute diverticulitis. Small amount of free fluid is present. No organized, drainable fluid collections. Peritoneum: No abnormal intraperitoneal fluid. No free air. Ventral Wall: No hernias. Abdominal Nodes: No retroperitoneal or mesenteric adenopathy by size criteria. Vessels: Aorta and inferior vena cava are normal in size. PELVIS: Pelvic Organs: Unremarkable. Bladder: Bladder wall is mildly thickened involving the bladder dome, likely secondary to direct spread of inflammation/infection from acute diverticulitis. No intraluminal air within the bladder suggesting colovesical fistula. Pelvic Nodes: No enlarged lymph nodes. Miscellaneous: No hernias are seen. Bones: Unremarkable. IMPRESSION: 1. Acute sigmoid diverticulitis. There is focal thickening of sigmoid colon and marked pericolonic inflammatory stranding. There is a small amount of free fluid. No drainable organized fluid collections. After adequate treatment of acute illness, colonoscopy is suggested for follow-up evaluation as colon cancer could have similar CT appearance. 2. Mild bladder wall thickening involving the bladder dome, likely secondary to direct spread of inflammation/infection from acute diverticulitis. 3. Nephrolithiasis with small nonobstructive renal calculi bilaterally. No significant discrepancy with the nightclub manager radiology preliminary report. Dictated by: Enoc Juan M.D. on 09/21/2020 at 7:58 Approved by: Enoc Juan M.D. on 09/21/2020 at 8:07
--- NOTE | 2020-09-21 02:44 | ED.GENADULT ---
HPI - General Adult General Chief complaint: Abdominal Pain Stated complaint: has diverticulitis/stomach pain Time Seen by Provider: 09/21/20 02:39 History of Present Illness HPI narrative: Patient is a 39-year-old male here for evaluation of worsening diverticulitis pain. He states that he has had diverticulitis in the past. Started having discomfort a couple days ago. Yesterday went to the walk-in clinic and was given a prescription for Augmentin. He states he cannot take the Cipro and Flagyl because it makes him very nauseated. Since he was seen in the walk-in clinic yesterday he feels that his lower abdominal discomfort is worsened. He has not had a bowel movement a couple days. No urinary symptoms. Some nausea no vomiting. No fevers. Related Data Previous Rx's Medication Instructions Recorded rosuvastatin 10 mg tablet 10 mg PO BEDTIME #90 tab 05/16/19 hydrocodone 5 mg-acetaminophen 325 1 tab PO Q4-6H PRN #10 tab 06/11/20 mg tablet ketorolac 10 mg tablet 10 mg PO Q6H PRN #14 tab 06/11/20 ondansetron 4 mg disintegrating 4 mg PO TID-QID PRN #10 tab 06/11/20 tablet tamsulosin 0.4 mg capsule (Flomax) 0.4 mg PO DAILY #10 cap 06/11/20 amoxicillin 875 mg-potassium 1 tab PO BID #14 tab 09/20/20 clavulanate 125 mg tablet (Augmentin) Allergies Allergy/AdvReac Type Severity Reaction Status Date / Time No Known Drug Allergies Allergy Verified 09/20/20 14:41 Review of Systems Constitutional Constitutional: Denies fever(s) Cardiovascular Cardiovascular: Reports system reviewed and no additional complaints, except as documented Respiratory Respiratory: Reports system reviewed and no additional complaints, except as documented Gastrointestinal Gastrointestinal: Reports as per HPI Genitourinary Genitourinary: Denies dysuria and Denies testicular pain Musculoskeletal Musculoskeletal: Reports system reviewed and no additional complaints, except as documented Integumentary/Breasts Skin/Breast: Reports system reviewed and no additional complaints, except as documented Neurologic Neurologic: Reports system reviewed and no additional complaints, except as documented Hematologic/Lymphatic On Anticoagulants: No Allergic/Immunologic Allergic/Immunologic: Reports system reviewed and no additional complaints, except as documented Patient History Medical History (Updated 09/21/20 @ 04:25 by Robbin Myrick DO) History of diverticulitis History of gout History of kidney stones Social History Smoking Status: Current every day smoker Tobacco: How many years used: 18 quit status: considering quitting (I would like to talk to Celina about starting Chanitix if it is an option.) second hand exposure: Yes ('a little bit) alcohol intake: current (a couple of beers a week. ) substance use type: marijuana (I smoke marijuana every day. ) Smoking Status: Current every day smoker alcohol intake frequency: 3 or more drinks per day Substance Use Type: marijuana Exam Initial Vital Signs Initial Vital Signs: Vital Signs Temperature 99.2 F 09/21/20 02:35 Pulse Rate 83 09/21/20 02:35 Respiratory Rate 16 09/21/20 02:35 Blood Pressure 137/87 09/21/20 02:35 Pulse Oximetry 97 09/21/20 02:35 Const General: cooperative and healthy appearing [facility] Head: normal to inspection and normocephalic Resp Auscultation: clear to auscultation bilaterally Cardio Rate: regular rate Rhythm: regular rhythm GI Palpation: soft, No guarding and tender Skin General: no rashes or lesions noted Neuro General: patient alert and patient awake Extrem General: normal to inspection Psych Appearance: grossly normal Course Orders Ordered: ED Orders 09/21/20 02:43 CT abdomen pelvis w con Stat 09/21/20 02:55 Complete Blood Count AUTO DIFF Stat Comprehensive Metabolic Panel Stat Lactate (Lactic Acid) Stat Lipase Stat Discontinued Medications Hydromorphone HCl (Hydromorphone 1 Mg Inj) 1 mg IV NOW ONE Stop: 09/21/20 02:43 Last Admin: 09/21/20 02:59 Dose: 1 mg Documented by: JOHN PAUL Sodium Chloride (Normal Saline 0.9%) 1,000 mls @ 1,000 mls/hr IV BOLUS ONE Stop: 09/21/20 03:41 Last Admin: 09/21/20 02:59 Dose: 1,000 mls/hr Documented by: JOHN PAUL Ondansetron HCl (Ondansetron 4 Mg/2 Ml Inj) 4 mg IV NOW ONE Stop: 09/21/20 02:43 Last Admin: 09/21/20 02:59 Dose: 4 mg Documented by: HGAFIAN Vital Signs Vital signs: Vital Signs - 8 hr 09/21/20 02:35 09/21/20 02:52 09/21/20 03:00 Temperature 99.2 F Pulse Rate 83 90 91 H Respiratory Rate 16 Blood Pressure 137/87 135/79 Pulse Oximetry 97 97 96 Medical Decision Making Medical Records Medical records reviewed: Yes I reviewed the patient's medical records. Lab Data Lab results reviewed: Yes I reviewed the patient's lab results. Result diagrams: 09/21/20 02:55 09/21/20 02:55 Labs: Lab Results 09/21/20 09/21/20 09/21/20 Range/Units 02:55 02:55 02:55 WBC 16.6 H (4.5-11.0) X10^3/uL RBC 4.90 (4.5-5.9) X10^6/uL Hgb 14.8 (13.5-17.5) g/dL Hct 44.0 (41-53) % MCV 89.9 (80-100) fL MCH 30.2 (26-34) PG MCHC 33.6 (30-36) % RDW 12.5 (11.6-14.8) % Plt Count 254 (150-400) X10^3/uL Neut % (Auto) 79.3 H (50-75) % Lymph % (Auto) 7.7 L (25-40) % [place] % (Auto) 12.0 (3-14) % Eos % (Auto) 0.7 L (2-4) % Baso % (Auto) 0.3 (0-2) % Neut # (Auto) 29192 H (6867-3862) /uL Lymph # (Auto) 1300 (4520-4569) /uL [place] # (Auto) 2000 H (0-900) /uL Eos # (Auto) 100 (0-450) /uL Baso # (Auto) 0 (0-100) /uL Sodium 139 (137-145) mmol/L Potassium 4.1 (3.4-5.1) mmol/L Chloride 107 (98-107) mmol/L Carbon Dioxide 25 (22-32) mmol/L BUN 17 (9-20) mg/dL Creatinine 0.89 (0.66-1.25) mg/dL Estimated GFR > 60.0 (>60) mL/min BUN/Creatinine Ratio 19.1 (6-22) Glucose 119 H (70-100) mg/dL Lactate 0.7 (0.7-2.1) mmol/L Calcium 9.7 (8.4-10.2) mg/dL Total Bilirubin 0.8 (0.2-1.3) mg/dL AST 36 (17-59) IU/L ALT 47 (<50) IU/L Alkaline Phosphatase 78 (38-126) U/L Total Protein 7.0 (6.3-8.2) g/dL Albumin 4.1 (3.5-5.0) g/dL Globulin 2.9 (1.7-4.1) g/dL Albumin/Globulin Ratio 1.4 (1.0-2.8) Lipase 62 (23-300) U/L Imaging Data CT scan - abdomen/pelvis: Radiologist's Impression: Acute sigmoid diverticulitis. Trace non loculated fluid in the pelvis is likely reactive. No evidence of perforation. Nonobstructing bilateral renal calculi. MDM Narrative Medical decision making narrative: Patient is afebrile. Does have a leukocytosis. CT scan shows diverticulitis without signs of perforation or definitive abscess. Is currently on Augmentin which son appropriate antibiotic for his condition. I do not feel the need to change his antibiotic his he only has taken 1 dose of this. Will send home with nausea medication. Also sent home with a very short course of pain medication however he was informed this can cause constipation and he does need to adjust his diet regimen to avoid this becoming an issue on top of the diverticulitis. He was given strict return precautions and follow-up instructions. He expressed understanding and agreement. Discharge Plan Departure Patient Disposition: Home Clinical Impression: Diverticulitis Instructions: DI for Diverticulitis Activity Restrictions/Additional Instructions: Continue to take the antibiotics as directed. Be sure to increase your fluid intake. If you are going to take the pain medication however high suggest that you take a stool softener as having constipation on top of the diverticulitis will just complicate the situation. Contact your primary provider for follow-up. Return to the emergency department for any new or worsening symptoms. Prescriptions: No Action amoxicillin-pot clavulanate [Augmentin] 875-125 mg tablet 1 tab PO BID Qty: 14 RF: 0 rosuvastatin 10 mg tablet 10 mg PO BEDTIME Qty: 90 RF: 3 hydrocodone-acetaminophen 5-325 mg tablet 1 tab PO Q4-6H PRN (Reason: pain) Qty: 10 RF: 0 ketorolac 10 mg tablet 10 mg PO Q6H PRN (Reason: pain) Qty: 14 RF: 0 tamsulosin [Flomax] 0.4 mg capsule 0.4 mg PO DAILY Qty: 10 RF: 0 ondansetron 4 mg tablet,disintegrating 4 mg PO TID-QID PRN (Reason: nausea and vomiting) Qty: 10 RF: 0 Referrals: Miscellaneous,Doctor, MD [Primary Care Provider] -
[2020-09-21] MEDS: SODIUM CHLORIDE 0.9% 1,000 ML 1000 ML IV (02:59)
[2020-09-21] MEDS: HYDROMORPHONE 1 MG INJ IV (02:59)
[2020-09-21] MEDS: ONDANSETRON 4 MG/2 ML INJ IV (02:59)
[2020-09-21 03:05] LABS: Add Manual Diff / Slide Review NO; Basophils Absolute Auto 0 /uL (0-100); Basophils Percent Auto 0.3 % (0-2); Eosinophils Absolute Auto 100 /uL (0-450); Eosinophils Percent Auto 0.7 % (2-4); Hemoglobin 14.8 g/dL (13.5-17.5); Lymphocytes Absolute Auto 1300 /uL (1100-4500); Lymphocytes Percent Auto 7.7 % (25-40); Mean Corpuscular HGB Conc 33.6 % (30-36); Mean Corpuscular Hemoglobin 30.2 PG (26-34); Mean Corpuscular Volume 89.9 fL (80-100); Monocytes Absolute Auto 2000 /uL (0-900); Neutrophils Absolute Auto 13100 /uL (1500-7000); Neutrophils Percent Auto 79.3 % (50-75); Platelet Count 254 X10^3/uL (150-400); Red Cell Distribution Width 12.5 % (11.6-14.8); White Blood Cell Count 16.6 X10^3/uL (4.5-11.0)
[2020-09-21 03:11] LABS: Alanine Aminotransferase 47 IU/L (<50); Albumin 4.1 g/dL (3.5-5.0); Albumin Globulin Ratio 1.4 (1.0-2.8); Alkaline Phosphatase 78 U/L (38-126); Aspartate Aminotransferase 36 IU/L (17-59); BUN Creatinine Ratio 19.1 (6-22); Bilirubin Total 0.8 mg/dL (0.2-1.3); Blood Urea Nitrogen 17 mg/dL (9-20); Calcium 9.7 mg/dL (8.4-10.2); Carbon Dioxide 25 mmol/L (22-32); Chloride 107 mmol/L (98-107); Estimated Glomerular Filt Rate > 60.0 mL/min (>60); Globulin 2.9 g/dL (1.7-4.1); Glucose 119 mg/dL (70-100); HEMOLYSIS < 15 (0-50); Lipase 62 U/L (23-300); Potassium 4.1 mmol/L (3.4-5.1); Sodium 139 mmol/L (137-145)
[2020-09-21 03:12] LABS: Lactate (Lactic Acid) 0.7 mmol/L (0.7-2.1)
[2020-09-21] MEDS: HYDROCODONE/ACET 5/325 PREPACK 1 BOTTLE MISC (04:31)
[2020-09-21] MEDS: ONDANSETRON 4 MG ODT PREPACK 1 BOTTLE MISC (04:31)
== END 2020-09-21 04:38 | disposition home or self-care (01) ==
PROVIDERS: Emergency Provider Emergency Medicine
DX: K57.92 Diverticulitis of intestine, part unspecified, without perforation or abscess without bleeding (principal)
CPT/HCPCS: 36415; 74177; 80053; 83605; 83690; 85025; 96361; 96374; 96375; 99284; J1170; J2405; Q9967

== ENCOUNTER 2021-05-04 10:37 | Emergency (ER) | payer OTHER, SELFPAY ==
[2021-05-04 11:14] VITALS: BP 145/79; PULSE 60; RESP 16; TEMP 36.9; O2SAT 97; BMI 27.4
[2021-05-04 12:15] VITALS: BP 133/81; PULSE 57; O2SAT 98
[2021-05-04 12:30] VITALS: BP 131/82; PULSE 60; O2SAT 98
--- NOTE | 2021-05-04 12:47 | ED_ITS ---
HPI - Eye Problem <LAURA Chaney - Last Filed: 05/04/21 14:36> General Chief complaint: Eye Problems Stated complaint: metal in right eye Time Seen by Provider: 05/04/21 12:37 History of Present Illness HPI Narrative: 40 year old male presents emergency department today complaining of possible metal in his right eye for the last 2 days. 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 Patient states his tetanus is up-to-date. Related Data Patient tetanus UTD: Yes Previous Rx's Medication Instructions Recorded rosuvastatin 10 mg tablet 10 mg PO BEDTIME #90 tab 05/16/19 hydrocodone 5 mg-acetaminophen 325 1 tab PO Q4-6H PRN #10 tab 06/11/20 mg tablet ketorolac 10 mg tablet 10 mg PO Q6H PRN #14 tab 06/11/20 ondansetron 4 mg disintegrating 4 mg PO TID-QID PRN #10 tab 06/11/20 tablet tamsulosin 0.4 mg capsule (Flomax) 0.4 mg PO DAILY #10 cap 06/11/20 amoxicillin 875 mg-potassium 1 tab PO BID #14 tab 09/20/20 clavulanate 125 mg tablet (Augmentin) erythromycin 5 mg/gram (0.5 %) eye 1 applic EYE-RIGHT QID 7 Days #1 g 05/04/21 ointment Allergies Allergy/AdvReac Type Severity Reaction Status Date / Time No Known Drug Allergies Allergy Verified 09/20/20 14:41 Review of Systems <LAURA Chaney - Last Filed: 05/04/21 14:36> Review of Systems Narrative: General: denies fever, chills, malaise, sweats, fatigue Head/Neck: denies headache, neck pain, dizziness Eyes: denies visual changes, endorses right eye pain, frequent blinking in tearing, right eye redness Cardio: denies chest pain, palpitations, edema Respiratory: denies dyspnea, cough, orthopnea GI: denies abdominal pain, nausea, vomiting, or diarrhea : denies dysuria, hematuria, urinary retention, frequency or incontinence MSK: denies joint pain, muscle weakness Skin: denies rash, itching, skin lesions or other Neuro: denies numbness, tingling Patient History <LAURA Chaney - Last Filed: 05/04/21 14:36> Medical History History of diverticulitis History of gout History of kidney stones Social History Smoking Status: Current every day smoker Tobacco: How many years used: 18 quit status: considering quitting (I would like to talk to Celina about starting Chanitix if it is an option.) second hand exposure: Yes ('a little bit) alcohol intake: current (a couple of beers a week. ) substance use type: marijuana (I smoke marijuana every day. ) Smoking Status: Current every day smoker tobacco type: vaping alcohol intake frequency: 3 or more drinks per day Substance Use Type: marijuana Exam <LAURA Chaney - Last Filed: 05/04/21 14:36> Narrative Exam Narrative: Independently reviewed vitals signs and nursing notes. General: Cooperative, comfortable, in no acute distress, well developed and well groomed Head/Neck: Normal visual inspection and supple, atraumatic, no JVD or lymphadenopathy. Normal facial exam Eyes: Pupils equal round and reactive, EOMI, conjunctiva normal, no scleral icterus, right eye with scleral injection, visual exam shows right corneal foreign body at 1:00 on a 12 hour o'clock near the distal edge of the cornea. It is black, partial stefany came off wetted Q-tip,, use proparacaine drops, and lifted edge of metal flake with a 27 gauge needle and partially removed another stefany of it. Use the blunt end of a Q-tip edge and was able to push the metal stefany out of the imbedded cornea without disrupting nearby tissue. Patient has a small corneal abrasion where the foreign body was viewed with fluorescein and Wood's lamp. He was given erythromycin ointment in the emergency department i nstructed to use this 4 times a day for the next week. Patient states improvement in his foreign body sensation, without any vision changes, double vision, photophobia, or scleral hemorrhage. Nose: External nose normal, nares patent, no rhinorrhea, without purulent drainage Mouth/Throat: uvula midline, moist mucus membranes Cardio: Regular rate and rhythm, no peripheral edema, warm extremities MSK: Moves all extremities, neurovascularly intact Skin: Normal capillary refill, no rash Neuro: Normal speech and cognition, normal gait, A&O x3, tone normal, moves all extremities Psych: Mental status is grossly normal, speech is clear, congruent mood, normal affect Initial Vital Signs Initial Vital Signs: Vital Signs Temperature 98.4 F 05/04/21 11:14 Pulse Rate 60 05/04/21 11:14 Respiratory Rate 16 05/04/21 11:14 Blood Pressure 145/79 H 05/04/21 11:14 Pulse Oximetry 97 05/04/21 11:14 <Keyana Beebe DO - Last Filed: 05/04/21 18:59> Initial Vital Signs Initial Vital Signs: Vital Signs Temperature 98.4 F 05/04/21 11:14 Pulse Rate 60 05/04/21 11:14 Respiratory Rate 16 05/04/21 11:14 Blood Pressure 145/79 H 05/04/21 11:14 Pulse Oximetry 97 05/04/21 11:14 Procedures <LAURA Chaney - Last Filed: 05/04/21 14:36> Foreign Body EYE Time Out performed: Yes Location: eye (R) Topical anesthetic used: proparacaine Foreign body: metal Evidence of corneal penetration: Yes Technique: cotton tip swab, needle and other Procedure performed under: direct visualization with magnification Post-procedure medication: ophthalmic antibiotic Patient tolerated procedure: well and no complications Course <LAURA Chaney - Last Filed: 05/04/21 14:36> Orders Ordered: Discontinued Medications Erythromycin (Erythromycin Ophth 1 Gm Oint) 1 applic EYE-RIGHT NOW ONE Stop: 05/04/21 13:15 Last Admin: 05/04/21 13:17 Dose: 1 applic Documented by: ANKUSH Proparacaine HCl (Proparacaine 0.5% Ophth Erika) 1 drops EYE-RIGHT NOW ONE Stop: 05/04/21 12:48 Last Admin: 05/04/21 13:01 Dose: 1 drops Documented by: ANKUSH Vital Signs Vital signs: Vital Signs - 8 hr 05/04/21 11:14 05/04/21 12:15 05/04/21 12:30 Temperature 98.4 F Pulse Rate 60 57 L 60 Respiratory Rate 16 Blood Pressure 145/79 H 133/81 131/82 Pulse Oximetry 97 98 98 05/04/21 13:00 05/04/21 13:30 Temperature Pulse Rate 61 58 L Respiratory Rate Blood Pressure 136/76 132/81 Pulse Oximetry 98 98 <Keyana Beebe DO - Last Filed: 05/04/21 18:59> Orders Ordered: Discontinued Medications Erythromycin (Erythromycin Ophth 1 Gm Oint) 1 applic EYE-RIGHT NOW ONE Stop: 05/04/21 13:15 Last Admin: 05/04/21 13:17 Dose: 1 applic Documented by: ANKUSH Proparacaine HCl (Proparacaine 0.5% Ophth Erika) 1 drops EYE-RIGHT NOW ONE Stop: 05/04/21 12:48 Last Admin: 05/04/21 13:01 Dose: 1 drops Documented by: ANKUSH Vital Signs Vital signs: Vital Signs - 8 hr 05/04/21 11:14 05/04/21 12:15 05/04/21 12:30 Temperature 98.4 F Pulse Rate 60 57 L 60 Respiratory Rate 16 Blood Pressure 145/79 H 133/81 131/82 Pulse Oximetry 97 98 98 05/04/21 13:00 05/04/21 13:30 Temperature Pulse Rate 61 58 L Respiratory Rate Blood Pressure 136/76 132/81 Pulse Oximetry 98 98 [facility] - Eye Problem <LAURA Chaney - Last Filed: 05/04/21 14:36> MDM Narrative Medical decision making narrative: 40-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 Foreign body removed after 4 or 5 times without any residual visible flex or ring, no rust is visible, patient was working with aluminum so this is very unlikely. Patient was given erythromycin ointment, instructed to follow-up with ophthalmology after the weekend and given a referral. Patient was given strict return precautions, denies any vision changes, photophobia, he was without nystagmus, or eye pain with eye movements. Patient is appropriate and amenable to discharge home. Vital signs are stable on repeat examination is unremarkable. Patient has been informed of results. Patient has been given strict return to ER precautions for any new or worsening symptoms. Patient understands to follow up closely with outpatient providers as instructed. Patient understands plan and agrees to discharge home. All questions and concerns answered at this time. Discharge Plan Departure Patient Disposition: Home Clinical Impression: Acute foreign body of right cornea Qualifiers: Encounter type: initial encounter Qualified Code(s): T15.01XA - Foreign body in cornea, right eye, initial encounter Instructions: Corneal Abrasion Activity Restrictions/Additional Instructions: *You have been diagnosed with a foreign body in the top right cornea which has since been removed. You have a small corneal abrasion where the piece of aluminum was. Please use the ointment given to you today 4 times a day for the next week. Please contact Ophthalmology and make an appointment for follow-up early next week. Please take ibuprofen or Tylenol as needed for your pain. I hope that it feels better soon. Thank you for holding so still, that was benson. *What to do: *Please continue to take your regular medications as directed. [x] New medication prescriptions sent to your pharmacy: [ ] [ ] New medication written as a paper prescription [ ] No new medications given *Please follow up with your primary care provider in 2-3 days, call for an appointment. Let them know you were seen in the Emergency Department and that we ask that you be seen in follow up. We will electronically transmit a record of today's note if your PCP is in our system *If you do not have a primary care provider please contact the [facility] Resource line at [phone]. They will ask some questions about your medical h istory and help get you set up with a doctor in the community. *Return to Emergency Department if you should have any new, worsening or concerning symptoms, such as [fever greater than 101F, chills, worsening pain, persistent vomiting or other bothersome symptoms] Prescriptions: New erythromycin 5 mg/gram (0.5 %) ointment 1 applic EYE-RIGHT QID 7 Days Qty: 1 0RF No Action amoxicillin-pot clavulanate [Augmentin] 875-125 mg tablet 1 tab PO BID Qty: 14 0RF rosuvastatin 10 mg tablet 10 mg PO BEDTIME Qty: 90 3RF Rx Instructions: Take one tablet at bedtime for high cholesterol hydrocodone-acetaminophen 5-325 mg tablet 1 tab PO Q4-6H PRN (Reason: pain) Qty: 10 0RF ketorolac 10 mg tablet 10 mg PO Q6H PRN (Reason: pain) Qty: 14 0RF tamsulosin [Flomax] 0.4 mg capsule 0.4 mg PO DAILY Qty: 10 0RF ondansetron 4 mg tablet,disintegrating 4 mg PO TID-QID PRN (Reason: nausea and vomiting) Qty: 10 0RF Referrals: Domonique Romero MD [Physician] - As soon as possible (hours are thursday through thursday [phone]. Please call for a follow up for your corneal abrasion) Rosalee,MD Forrest [Primary Care Provider] - <Keyana Beebe DO - Last Filed: 05/04/21 18:59> Cosign ED Attending Babarature Attestation: I was immediately available in the department for consultation. Documentation has been reviewed.
[2021-05-04 13:00] VITALS: BP 136/76; PULSE 61; O2SAT 98
[2021-05-04] MEDS: PROPARACAINE 0.5% OPHTH SOL 1 DROPS EYE-RIGHT (13:01)
[2021-05-04] MEDS: ERYTHROMYCIN OPHTH 1 GM OINT 1 APPLIC EYE-RIGHT (13:17)
[2021-05-04 13:30] VITALS: BP 132/81; PULSE 58; O2SAT 98
== END 2021-05-04 13:46 | disposition home or self-care (01) ==
PROVIDERS: Emergency Provider Nurse Practitioner Critical Care Medicine
DX: T15.01XA Foreign body in cornea, right eye, initial encounter (principal); X58.XXXA Exposure to other specified factors, initial encounter
CPT/HCPCS: 99282

== ENCOUNTER → 2021-06-20 10:11 | Outpatient (CLI) | payer OTHER, SELFPAY ==
[2021-06-20 10:35] LABS: Add Manual Diff / Slide Review NO; Basophils Absolute Auto 0 /uL (0-100); Basophils Percent Auto 0.7 % (0-2); Eosinophils Absolute Auto 100 /uL (0-450); Eosinophils Percent Auto 1.7 % (2-4); Hematocrit 44.7 % (41-53); Hemoglobin 15.5 g/dL (13.5-17.5); Lymphocytes Absolute Auto 1400 /uL (1100-4500); Lymphocytes Percent Auto 24.4 % (25-40); Mean Corpuscular HGB Conc 34.7 % (30-36); Mean Corpuscular Hemoglobin 30.4 PG (26-34); Mean Corpuscular Volume 87.7 fL (80-100); Monocytes Absolute Auto 700 /uL (0-900); Monocytes Percent Auto 11.6 % (3-14); Neutrophils Absolute Auto 3500 /uL (1500-7000); Neutrophils Percent Auto 61.6 % (50-75); Platelet Count 239 X10^3/uL (150-400); Red Blood Cell Count 5.09 X10^6/uL (4.5-5.9); Red Cell Distribution Width 12.5 % (11.6-14.8); White Blood Cell Count 5.7 X10^3/uL (4.5-11.0)
[2021-06-20 10:52] LABS: Alanine Aminotransferase 32 IU/L (<50); Albumin 4.5 g/dL (3.5-5.0); Albumin Globulin Ratio 1.8 (1.0-2.8); Alkaline Phosphatase 63 U/L (38-126); Aspartate Aminotransferase 28 IU/L (17-59); BUN Creatinine Ratio 14.9 (6-22); Bilirubin Total 0.6 mg/dL (0.2-1.3); Blood Urea Nitrogen 13 mg/dL (9-20); C-Reactive Protein Quant < 0.5 mg/dL (<1.0); Calcium 9.3 mg/dL (8.4-10.2); Carbon Dioxide 26 mmol/L (22-32); Chloride 106 mmol/L (98-107); Estimated Glomerular Filt Rate > 60.0 mL/min (>60); Globulin 2.5 g/dL (1.7-4.1); Glucose 110 mg/dL (70-100); HEMOLYSIS < 15 (0-50); Potassium 4.6 mmol/L (3.4-5.1); Sodium 141 mmol/L (137-145); Uric Acid 4.4 mg/dL (3.5-8.5)
[2021-06-20 10:54] LABS: Rheumatoid Factor < 8.6 IU/mL (<12.0)
[2021-06-20 10:56] LABS: Erythrocyte Sedimentation Rate 1 MM/HR (0-15)
[2021-06-25 13:36] LABS: ANA Screen, IFA Negative (.)
== END ==
PROVIDERS: Referring Provider Family Medicine; Visit Provider Family Medicine
DX: K57.92 Diverticulitis of intestine, part unspecified, without perforation or abscess without bleeding (principal); E78.2 Mixed hyperlipidemia; Z87.39 Personal history of other diseases of the musculoskeletal system and connective tissue; Z87.442 Personal history of urinary calculi
CPT/HCPCS: 36415; 80053; 84550; 85025; 85651; 86038; 86140; 86430

== ENCOUNTER → 2021-09-17 10:15 | Outpatient (CLI) | payer OTHER, SELFPAY ==
[2021-09-17 12:10] LABS: COVID19 -Nasal RAPID Negative (Negative)
== END ==
PROVIDERS: Visit Provider Surgery
DX: Z20.822 Contact with and (suspected) exposure to COVID-19 (principal); Z01.812 Encounter for preprocedural laboratory examination
CPT/HCPCS: 87635; C9803

== ENCOUNTER 2021-09-18 11:55 | Day surgery (SDC) | payer OTHER, SELFPAY ==
[2021-09-18 12:22] VITALS: BMI 28.3
[2021-09-18 12:32] VITALS: BP 115/79; PULSE 56; RESP 16; TEMP 36.6; O2SAT 94
[2021-09-18] MEDS: SODIUM CHLORIDE 0.9% 1,000 ML 70 ML IV (12:48)
--- NOTE | 2021-09-18 14:03 | PM.HP.1 ---
History of Present Illness History of Present Illness Date Patient Seen: 09/18/21 Time Patient Seen: 14:03 Chief complaint: SDC Narrative: Patient is a very pleasant 40-year-old male who presented for colonoscopy. He has had recent left-sided diverticulitis. He has also been experiencing intermittent rectal bleeding. No prior colonoscopy. No family history colon cancer. Patient History Medical History History of diverticulitis History of gout History of kidney stones Family & Social History Social History: household members spouse Tobacco & Substance use: Tobacco type cigarettes,cannabis/marijuana Smoking Status Current every day smoker alcohol intake current alcohol intake frequency 3 or more drinks per day Substance Use Type marijuana Meds Home Medications and Allergies Home Medications Medication Instructions Recorded Confirmed Type No Known Home Medications 06/20/21 09/18/21 History Allergies Allergy/AdvReac Type Severity Reaction Status Date / Time No Known Drug Allergies Allergy Verified 09/18/21 12:21 Review of Systems Review of Systems ROS: Yes All systems reviewed with the patient and are negative except as otherwise documented Exam Vital Signs (past 8 hours): - 09/18/21 12:32 Temperature 97.9 F Pulse Rate 56 L Respiratory Rate 16 Blood Pressure 115/79 Pulse Oximetry 94 Oxygen Delivery Method Room Air Oxygen Delivery Method Room Air Const General: cooperative, healthy appearing, comfortable, well developed, well groomed and No acute distress Nutritional Appearance: average body habitus HENMT Head: normocephalic and atraumatic Resp Effort & Inspection: normal respiratory effort, able to speak in complete sentences and no audible wheezes Auscultation: clear to auscultation bilaterally Cardio Rate: regular rate Rhythm: regular rhythm GI Palpation: soft Auscultation: normal bowel sounds Assessment & Plan Assessment & Plan narrative: 1. Personal history diverticulitis 2. Intermittent rectal bleeding Colonoscopy today, further recommendations to follow Time Spent With Patient Critical Care time: I spent a total of [] minutes of critical care time on this patient's care today; this time is exclusive of procedural time.
[2021-09-18 14:32] VITALS: BP 103/69; PULSE 59; RESP 22; TEMP 36.3; O2SAT 96
--- NOTE | 2021-09-18 14:33 | P.OP.COLON_ITS ---
Operative Date/Time/Diagnoses Date of procedure: 09/18/21 Time of procedure: 14:13 Procedure Notes Procedure in detail: Surgeon: Jeanne Hutson DO Procedure: Colonoscopy Preoperative diagnosis: 1. History of diverticulitis 2. Intermittent rectal bleeding 3. No prior colonoscopy Postoperative diagnosis: 1. Diverticulosis scattered throughout the entire colon 2. Grade 2 internal hemorrhoids 3. Hypertrophied anal papilla 4. Otherwise unremarkable colonoscopy Medications: Monitored anesthesia care Preanesthesia Assessment An H and P was performed/updated and the Px?s ASA class is 1. The procedure was discussed in detail with the patient. The potential risks and complications including infection, bleeding, missed lesions, perforation, need for surgery in case of perforation, prolonged hospital stay, and were explained. A brief question and answer period was allotted and once all questions were answered, informed consent was obtained. The patient was brought back to the procedure room and placed on standard monitoring. The patient?s vital signs were monitored continuously throughout the entire procedure. Prior to starting, a timeout was performed to confirm the patient?s identity, allergies, medications, and procedure. Procedure in detail The patient was placed in left lateral decubitus position and once adequate sedation was obtained a LORETTA was performed. The digital rectal examination did not reveal any palpable lesions. The tip of the colonoscope was placed in the anal canal and advanced without difficulty all the way to the cecum which was identified by the appendiceal orifice and the ileocecal valve. Careful examination of all juárez of the colon was performed with irrigation of any residual stool. Diverticulosis was scattered throughout the entire colon with a larger concentration in the left colon. Grade 2 internal hemorrhoids and hypertrophied anal papilla were noted on retroflexion. Exam was otherwise unremarkable. The patient tolerated the procedure well and will be brought back to the [facility] area to be discharged once criteria are met. The prep was judged to be good/excellent and adequate to identify polyps less than 5 mm. The withdrawal time was 7min. Complications There were no complications and estimated blood loss was minimal. Recommendations: Resume previous diet Continue outPx medications Repeat colonoscopy in 10 years for screening Office follow up if persistent symptoms An emergency contact number was given to the patient for any complications related to the procedure
[2021-09-18 14:37] VITALS: BP 95/63; PULSE 65; RESP 19; O2SAT 98
[2021-09-18 14:43] VITALS: BP 98/65; PULSE 51; RESP 19; O2SAT 96
[2021-09-18 14:49] VITALS: BP 105/64; PULSE 58; RESP 15; TEMP 36.1; O2SAT 99
[2021-09-18 14:51] VITALS: BP 105/67; PULSE 54; RESP 17; TEMP 36.1; O2SAT 96
--- NOTE | 2021-09-18 15:05 | SUR.PHASEII ---
1500: Pt A&Ox4, denies any distress tolerating PO and ready to discharge home. Discharge instructions reviewed with pt by previous RN, verified pt has no further questions. IV DC'd intact. Pt left unit via w/c to ER exit to meet spouse who will transport pt home.
== END 2021-09-18 15:00 | disposition home or self-care (01) ==
PROVIDERS: Referring Provider Student in an Organized Health Care Education/Training Program; Visit Provider Student in an Organized Health Care Education/Training Program
PROC: 0DJD8ZZ Inspection of Lower Intestinal Tract, Via Natural or Artificial Opening Endoscopic (ICD-10-PCS; CPT 45378; principal; 2021-09-18 13:30)
DX: K62.5 Hemorrhage of anus and rectum (principal); Z87.19 Personal history of other diseases of the digestive system; F17.210 Nicotine dependence, cigarettes, uncomplicated; K64.4 Residual hemorrhoidal skin tags; K64.1 Second degree hemorrhoids
CPT/HCPCS: 45378; J2704

== ENCOUNTER 2022-01-09 13:24 | Emergency (ER) | payer OTHER, SELFPAY ==
[2022-01-09] VITALS (8 sets, daily range): BP systolic 104–134; BP diastolic 62–74; PULSE 92–104; RESP 16–20; TEMP 37.2; O2SAT 95–99; BMI 28.3
[2022-01-09 14:06] LABS: Add Manual Diff / Slide Review NO; Basophils Absolute Auto 0 /uL (0-100); Basophils Percent Auto 0.3 % (0-2); Eosinophils Absolute Auto 0 /uL (0-450); Eosinophils Percent Auto 0.3 % (2-4); Hematocrit 43.1 % (41-53); Hemoglobin 14.8 g/dL (13.5-17.5); Lymphocytes Absolute Auto 100 /uL (1100-4500); Mean Corpuscular HGB Conc 34.3 % (30-36); Mean Corpuscular Hemoglobin 30.3 PG (26-34); Mean Corpuscular Volume 88.2 fL (80-100); Monocytes Absolute Auto 900 /uL (0-900); Monocytes Percent Auto 6.8 % (3-14); Neutrophils Absolute Auto 12100 /uL (1500-7000); Neutrophils Percent Auto 91.6 % (50-75); Platelet Count 288 X10^3/uL (150-400); Red Blood Cell Count 4.88 X10^6/uL (4.5-5.9); Red Cell Distribution Width 12.4 % (11.6-14.8); White Blood Cell Count 13.2 X10^3/uL (4.5-11.0)
[2022-01-09 14:18] LABS: Alanine Aminotransferase 37 IU/L (<50); Albumin 4.3 g/dL (3.5-5.0); Albumin Globulin Ratio 1.3 (1.0-2.8); Alkaline Phosphatase 87 U/L (38-126); Aspartate Aminotransferase 28 IU/L (17-59); BUN Creatinine Ratio 12.9 (6-22); Bilirubin Total 0.4 mg/dL (0.2-1.3); Blood Urea Nitrogen 11 mg/dL (9-20); Calcium 9.1 mg/dL (8.4-10.2); Carbon Dioxide 22 mmol/L (22-32); Chloride 103 mmol/L (98-107); Estimated Glomerular Filt Rate > 60 mL/min (>60); Globulin 3.4 g/dL (1.7-4.1); Glucose 129 mg/dL (70-100); HEMOLYSIS < 15 (0-50); Lipase 69 U/L (23-300); Potassium 4.2 mmol/L (3.4-5.1); Sodium 138 mmol/L (137-145); Total Protein 7.7 g/dL (6.3-8.2)
--- NOTE | 2022-01-09 15:04 | DI.CT.S_ITS ---
PROCEDURE: CT ABDOMEN PELVIS W CON INDICATIONS: LLQ pain, hx of diverticulitis TECHNIQUE: After the administration of IV contrast, axial sections were acquired from the lung bases to the pubic symphysis. Coronal and sagittal reformats were performed. For radiation dose reduction, the following was used: automated exposure control, adjustment of mA and/or kV according to patient size. COMPARISON: [facility], CT, CT ABDOMEN PELVIS W CON, 09/21/2020, 2:52. FINDINGS: Image quality: Excellent. Lung bases: Unremarkable. Heart: No significant findings. ABDOMEN: Liver: Hepatic steatosis is present. Gallbladder: Punctate calcification is noted within the superior aspect of the gallbladder, unchanged. No wall thickening. Biliary ducts: Unremarkable. Pancreas: Unremarkable. Spleen: Unremarkable. Adrenal Glands: Unremarkable. Kidneys and Ureters: Right kidney demonstrates 3 punctate areas of nonobstructing calcification, noting 2 calcifications on prior exam. Left kidney demonstrates 3 calcifications the largest in the inferior pole measuring 4 mm. 2 calcifications are new compared to prior exam. No obstruction. Stomach and Bowel: Stomach, small bowel loops, and colon are nonobstructive. There is significant pericolonic stranding as well as thickening and inflammatory change within the distal descending extending to the proximal sigmoid colon. Prominent colonic diverticular present. No visualized abscess. Peritoneum: No abnormal intraperitoneal fluid. No free air. Ventral Wall: No hernia. Abdominal Nodes: No retroperitoneal or mesenteric adenopathy by size criteria. Vessels: Aorta and inferior vena cava are normal in size. PELVIS: Pelvic Organs: Unremarkable. Bladder: Unremarkable. Pelvic Nodes: No enlarged lymph nodes. Miscellaneous: No inguinal hernias are seen. Bones: Unremarkable. IMPRESSION: Descending/sigmoid colonic inflammatory change with diverticula most consistent with colitis secondary to diverticulitis. No abscess. Recommend interval follow up after appropriate therapy to document resolution exclude presence of underlying mass lesion. Nonobstructing renal calculi. Dictated by: Elsy Peralta M.D. on 01/09/2022 at 16:23 Approved by: Elsy Peralta M.D. on 01/09/2022 at 16:26
--- NOTE | 2022-01-09 15:08 | ED.ABDPAIN ---
HPI - Abdominal Pain <Olayinka Stewart PA-C - Last Filed: 01/09/22 19:02> General Chief Complaint: Abdominal Pain Stated Complaint: DIVERTICULITIS, NVD Time Seen by Provider: 01/09/22 14:12 Source: patient Mode of arrival: Family Vehicle History of Present Illness HPI narrative: This is a 41-year-old male presents to the emergency department due to acute on chronic abdominal pain onset last night. States that he is very chronic history of diverticulitis and states this is some kind of flare-up. Denies any fevers, chills, nausea, vomiting, or any other concerning signs or symptoms. States that the pain is primarily in the left lower quadrant. Related Data Previous Rx's Medication Instructions Recorded amoxicillin 875 mg-potassium 1 tab PO BID #14 tabs 01/09/22 clavulanate 125 mg tablet hydrocodone 5 mg-acetaminophen 325 1 tab PO Q8H PRN pain 7 days #21 01/09/22 mg tablet tabs ondansetron 4 mg disintegrating 4 mg PO Q8H PRN nausea and 01/09/22 tablet vomiting #20 tabs Allergies Allergy/AdvReac Type Severity Reaction Status Date / Time No Known Drug Allergies Allergy Verified 01/09/22 07:46 Review of Systems <KIRSTEN Masters Last Filed: 01/09/22 19:02> Review of Systems Narrative: GENERAL: Denies chills, fatigue, malaise, fever, sweats. HEENT: Denies sinus pain, ear pain, sore throat, difficulty swallowing, dizziness. RESPIRATORY: Denies dyspnea, cough, wheezing, hemoptysis, sputum. CARDIOVASCULAR: Denies chest pain, palpitations, orthopnea, edema, GASTROINTESTINAL: Reports abdominal pain, Denies nausea, vomiting,diarrhea, constipation, melena. : Denies dysuria, frequency, incontinence, hematuria, urinary retention. MUSCULOSKELETAL: denies weakness, joint pain, or bony pain SKIN: Denies rash, skin lesions, or other NEUROLOGIC: Denies weakness, headache, numbness, change in speech, confusion, seizures, incoordination. PSYCHIATRIC: No concerning psychosocial issues. 12 point review of systems is negative except for those stated above Patient History <KIRSTEN Masters Last Filed: 01/09/22 19:02> Medical History (Updated 01/09/22 @ 17:16 by Olayinka Stewart PA-C) History of diverticulitis History of gout History of kidney stones Social History household members: spouse Smoking Status: Current every day smoker Tobacco: How many years used: 18 quit status: considering quitting (I would like to talk to Celina about starting Chanitix if it is an option.) second hand exposure: Yes ('a little bit) alcohol intake: current substance use type: marijuana (I smoke marijuana every day. ) Smoking Status: Current every day smoker tobacco type: vaping alcohol intake frequency: 3 or more drinks per day Substance Use Type: marijuana Exam <Olayinka Stewart PA-C - Last Filed: 01/09/22 19:02> Narrative Exam Narrative: GENERAL: Well-developed patient, in mild distress. HEAD: Atraumatic. Normocephalic. EYES: Pupils equal round and reactive. Extraocular motions intact. No scleral icterus. No injection or drainage. ENT: Nose without bleeding, purulent drainage. Throat without erythema, tonsillar hypertrophy or exudate. Airway patent. NECK: Trachea midline. Non tender CARDIOVASCULAR: Regular rate and rhythm without murmurs, gallops, or rubs. RESPIRATORY: Clear to auscultation. Breath sounds equal bilaterally. No wheezes, rales, or rhonchi. GASTROINTESTINAL: Abdomen soft, tenderness to palpation to the left lower quadrant, nondistended. EXTREMITIES: No edema or joint tenderness. BACK: Nontender without deformity or crepitance. No flank tenderness. NEURO: AOx3. SKIN: No rash or erythema of visible areas Initial Vital Signs Initial Vital Signs: Vital Signs Temperature 98.9 F 01/09/22 13:49 Pulse Rate 104 H 01/09/22 13:49 Respiratory Rate 20 01/09/22 13:49 Blood Pressure 134/67 01/09/22 13:49 Pulse Oximetry 99 01/09/22 13:49 Oxygen Delivery Method 01/09/22 13:49 <Eugenie Jimenez DO - Last Filed: 01/10/22 07:14> Initial Vital Signs Initial Vital Signs: Vital Signs Temperature 98.9 F 01/09/22 13:49 Pulse Rate 104 H 01/09/22 13:49 Respiratory Rate 20 01/09/22 13:49 Blood Pressure 134/67 01/09/22 13:49 Pulse Oximetry 99 01/09/22 13:49 Oxygen Delivery Method 01/09/22 13:49 Course <Olayinka Stewart PA-C - Last Filed: 01/09/22 19:02> Orders Ordered: Discontinued Medications Sodium Chloride (Normal Saline 0.9%) 1,000 mls @ 1,000 mls/hr IV BOLUS ONE Stop: 01/09/22 16:02 Last Infusion: 01/09/22 16:36 Dose: 0 mls/hr Documented By: Admin: 01/09/22 15:11 Dose: 1,000 mls/hr Documented By: AT Ketorolac Tromethamine (Ketorolac 30 Mg/Ml Vial) 15 mg IV NOW ONE Stop: 01/09/22 17:27 Last Admin: 01/09/22 17:30 Dose: 15 mg Documented By: AT Morphine Sulfate (Morphine 4 Mg/Ml Inj) 4 mg IV NOW ONE Stop: 01/09/22 15:04 Last Admin: 01/09/22 15:11 Dose: 4 mg Documented By: AT Ondansetron HCl (Ondansetron 4 Mg/2 Ml Inj) 4 mg IV NOW ONE Stop: 01/09/22 15:04 Last Admin: 01/09/22 15:10 Dose: 4 mg Documented By: AT Vital Signs Vital signs: Vital Signs - 8 hr 01/09/22 13:49 01/09/22 14:48 01/09/22 15:00 Temperature 98.9 F Pulse Rate 104 H 95 H 101 H Respiratory Rate 20 20 18 Blood Pressure 134/67 130/70 129/74 Pulse Oximetry 99 98 99 Oxygen Delivery Method Room Air Room Air Room Air 01/09/22 15:30 01/09/22 17:30 01/09/22 17:00 Temperature Pulse Rate 102 H 98 H 94 H Respiratory Rate 16 16 Blood Pressure 121/71 108/66 104/62 Pulse Oximetry 97 99 95 Oxygen Delivery Method Room Air Room Air Room Air 01/09/22 16:30 01/09/22 16:00 Temperature Pulse Rate 94 H 92 H Respiratory Rate Blood Pressure 112/68 113/71 Pulse Oximetry 97 97 Oxygen Delivery Method Room Air Room Air <Eugenie Jimenez DO - Last Filed: 01/10/22 07:14> Orders Ordered: Discontinued Medications Sodium Chloride (Normal Saline 0.9%) 1,000 mls @ 1,000 mls/hr IV BOLUS ONE Stop: 01/09/22 16:02 Last Infusion: 01/09/22 16:36 Dose: 0 mls/hr Documented By: Admin: 01/09/22 15:11 Dose: 1,000 mls/hr Documented By: AT Ketorolac Tromethamine (Ketorolac 30 Mg/Ml Vial) 15 mg IV NOW ONE Stop: 01/09/22 17:27 Last Admin: 01/09/22 17:30 Dose: 15 mg Documented By: AT Morphine Sulfate (Morphine 4 Mg/Ml Inj) 4 mg IV NOW ONE Stop: 01/09/22 15:04 Last Admin: 01/09/22 15:11 Dose: 4 mg Documented By: AT Ondansetron HCl (Ondansetron 4 Mg/2 Ml Inj) 4 mg IV NOW ONE Stop: 01/09/22 15:04 Last Admin: 01/09/22 15:10 Dose: 4 mg Documented By: AT Vital Signs Vital signs: Vital Signs - 8 hr 01/09/22 13:49 01/09/22 14:48 01/09/22 15:00 Temperature 98.9 F Pulse Rate 104 H 95 H 101 H Respiratory Rate 20 20 18 Blood Pressure 134/67 130/70 129/74 Pulse Oximetry 99 98 99 Oxygen Delivery Method Room Air Room Air Room Air 01/09/22 15:30 01/09/22 17:30 01/09/22 17:00 Temperature Pulse Rate 102 H 98 H 94 H Respiratory Rate 16 16 Blood Pressure 121/71 108/66 104/62 Pulse Oximetry 97 99 95 Oxygen Delivery Method Room Air Room Air Room Air 01/09/22 16:30 01/09/22 16:00 Temperature Pulse Rate 94 H 92 H Respiratory Rate Blood Pressure 112/68 113/71 Pulse Oximetry 97 97 Oxygen Delivery Method Room Air Room Air MDM - Abdominal Pain <Olayinka Stewart PA-C - Last Filed: 01/09/22 19:02> Lab Data Result diagrams: 01/09/22 13:52 01/09/22 13:52 Labs: Lab Results 01/09/22 01/09/22 Range/Units 13:52 13:52 WBC 13.2 H (4.5-11.0) X10^3/uL RBC 4.88 (4.5-5.9) X10^6/uL Hgb 14.8 (13.5-17.5) g/dL Hct 43.1 (41-53) % MCV 88.2 (80-100) fL MCH 30.3 (26-34) PG MCHC 34.3 (30-36) % RDW 12.4 (11.6-14.8) % Plt Count 288 (150-400) X10^3/uL Neut % (Auto) 91.6 H (50-75) % Lymph % (Auto) 1.0 L (25-40) % [place] % (Auto) 6.8 (3-14) % Eos % (Auto) 0.3 L (2-4) % Baso % (Auto) 0.3 (0-2) % Neut # (Auto) 31173 H (7051-8168) /uL Lymph # (Auto) 100 L (5232-5170) /uL [place] # (Auto) 900 (0-900) /uL Eos # (Auto) 0 (0-450) /uL Baso # (Auto) 0 (0-100) /uL Sodium 138 (137-145) mmol/L Potassium 4.2 (3.4-5.1) mmol/L Chloride 103 (98-107) mmol/L Carbon Dioxide 22 (22-32) mmol/L BUN 11 (9-20) mg/dL Creatinine 0.85 (0.66-1.25) mg/dL Estimated GFR > 60 (>60) mL/min BUN/Creatinine Ratio 12.9 (6-22) Glucose 129 H (70-100) mg/dL Calcium 9.1 (8.4-10.2) mg/dL Total Bilirubin 0.4 (0.2-1.3) mg/dL AST 28 (17-59) IU/L ALT 37 (<50) IU/L Alkaline Phosphatase 87 (38-126) U/L Total Protein 7.7 (6.3-8.2) g/dL Albumin 4.3 (3.5-5.0) g/dL Globulin 3.4 (1.7-4.1) g/dL Albumin/Globulin Ratio 1.3 (1.0-2.8) Lipase 69 (23-300) U/L Imaging Data CT scan - abdomen/pelvis: Radiologist's Impression: [address] [address] [address] Scan Report Signed Patient: Keyshawn العلي MR#: [id number] : 1980 Acct:[id number] Age/Sex: 41 / M Date of Service: 01/09/22 Loc: ED Accession Number: [id number] ?? Procedure: CT abdomen pelvis w con Ordering Provider: Olayinka Stewart P.A-C PROCEDURE:? CT ABDOMEN PELVIS W CON ? INDICATIONS:? LLQ pain, hx of diverticulitis ? TECHNIQUE:? After the administration of IV contrast, axial sections were acquired from the lung bases to the pubic symphysis.? Coronal and sagittal reformats were performed.? For radiation dose reduction, the following was used:? automated exposure control, adjustment of mA and/or kV according to patient size. ? COMPARISON:? [facility], CT, CT ABDOMEN PELVIS W CON, 09/21/2020, 2:52. ? FINDINGS:? Image quality:? Excellent.? ? Lung bases:? Unremarkable.? ? Heart:? No significant findings. ? ? ABDOMEN: Liver:? Hepatic steatosis is present. Gallbladder:? Punctate calcification is noted within the superior aspect of the gallbladder, unchanged.? No wall thickening.? ? Biliary ducts:? Unremarkable.? ? Pancreas:? Unremarkable.? ? Spleen:? Unremarkable.? ? Adrenal Glands:? Unremarkable.? ? Kidneys and Ureters:? Right kidney demonstrates 3 punctate areas of nonobstructing calcification, noting 2 calcifications on prior exam.? Left kidney demonstrates 3 calcifications the largest in the inferior pole measuring 4 mm.? 2 calcifications are new compared to prior exam.? No obstruction.? ? Stomach and Bowel:? Stomach, small bowel loops, and colon are nonobstructive.? There is significant pericolonic stranding as well as thickening and inflammatory change within the distal descending extending to the proximal sigmoid colon.? Prominent colonic diverticular present.? No visualized abscess. Peritoneum:? No abnormal intraperitoneal fluid.? No free air.? ? Ventral Wall: ? No hernia.? Abdominal Nodes:? No retroperitoneal or mesenteric adenopathy by size criteria.? Vessels:? Aorta and inferior vena cava are normal in size.? ? PELVIS: Pelvic Organs:? Unremarkable.? ? Bladder:? Unremarkable.? ? Pelvic Nodes: No enlarged lymph nodes.? Miscellaneous: No inguinal hernias are seen. ? ? ? Bones:? Unremarkable.? IMPRESSION:? ? Descending/sigmoid colonic inflammatory change with diverticula most consistent with colitis secondary to diverticulitis.? No abscess.? Recommend interval follow up after appropriate therapy to document resolution exclude presence of underlying mass lesion. ? Nonobstructing renal calculi. ? ? Dictated by: Elsy Peralta M.D. on 01/09/2022 at 16:23 ? ? Approved by: Elsy Peralta M.D. on 01/09/2022 at 16:26 ? MDM Narrative Medical decision making narrative: This is a 41-year-old male presents emergency department with with a history of acute on chronic diverticulitis. Patient's vitals and lab work was reassuring as though there was a slightly elevated white count. Shared decision making was utilized and patient was agreeable to repeat CT scan which was ordered which showed findings suggestive of colitis secondary diverticulitis. Patient has already been prescribed Augmentin by the walk-in clinic which I recommended he continue taking. Patient was given medication for pain but strongly advised to follow up with his primary care provider who would be best able to manage these episodes of acute on chronic pain. <Eugenie Jimenez, DO - Last Filed: 01/10/22 07:14> Lab Data Labs: Lab Results 01/09/22 01/09/22 Range/Units 13:52 13:52 WBC 13.2 H (4.5-11.0) X10^3/uL RBC 4.88 (4.5-5.9) X10^6/uL Hgb 14.8 (13.5-17.5) g/dL Hct 43.1 (41-53) % MCV 88.2 (80-100) fL MCH 30.3 (26-34) PG MCHC 34.3 (30-36) % RDW 12.4 (11.6-14.8) % Plt Count 288 (150-400) X10^3/uL Neut % (Auto) 91.6 H (50-75) % Lymph % (Auto) 1.0 L (25-40) % [place] % (Auto) 6.8 (3-14) % Eos % (Auto) 0.3 L (2-4) % Baso % (Auto) 0.3 (0-2) % Neut # (Auto) 50488 H (6157-1777) /uL Lymph # (Auto) 100 L (1810-2400) /uL [place] # (Auto) 900 (0-900) /uL Eos # (Auto) 0 (0-450) /uL Baso # (Auto) 0 (0-100) /uL Sodium 138 (137-145) mmol/L Potassium 4.2 (3.4-5.1) mmol/L Chloride 103 (98-107) mmol/L Carbon Dioxide 22 (22-32) mmol/L BUN 11 (9-20) mg/dL Creatinine 0.85 (0.66-1.25) mg/dL Estimated GFR > 60 (>60) mL/min BUN/Creatinine Ratio 12.9 (6-22) Glucose 129 H (70-100) mg/dL Calcium 9.1 (8.4-10.2) mg/dL Total Bilirubin 0.4 (0.2-1.3) mg/dL AST 28 (17-59) IU/L ALT 37 (<50) IU/L Alkaline Phosphatase 87 (38-126) U/L Total Protein 7.7 (6.3-8.2) g/dL Albumin 4.3 (3.5-5.0) g/dL Globulin 3.4 (1.7-4.1) g/dL Albumin/Globulin Ratio 1.3 (1.0-2.8) Lipase 69 (23-300) U/L Discharge Plan Departure Patient Disposition: Home Clinical Impression: Diverticulitis Instructions: DI for Diverticulitis Activity Restrictions/Additional Instructions: Thank you for coming to the [facility] Emergency Department today. The CT scan showed diverticulitis which you are well aware of. Please continue taking the antibiotic antibiotics you were prescribed. The pain medication should help with the acute flares. I strongly fall recommended follow-up with a primary care provider for long-term management of this pain. The Zofran should help with any nausea. I hope you feel better soon. Prescriptions: New ondansetron 4 mg tablet,disintegrating 4 mg PO Q8H PRN (Reason: nausea and vomiting) Qty: 20 0RF hydrocodone-acetaminophen 5-325 mg tablet 1 tab PO Q8H PRN (Reason: pain) 7 Days Qty: 21 0RF No Action amoxicillin-pot clavulanate 875-125 mg tablet 1 tab PO BID Qty: 14 0RF Referrals: Neri Hernandez DO [Primary Care Provider] - Visit Report Forms: Patient Portal/API <Eugenie Jimenez DO - Last Filed: 01/10/22 07:14> Cosign ED Attending Babarature Attestation: I was immediately available in the department for consultation. Documentation has been reviewed. I agree with assessment and plan.
[2022-01-09] MEDS: ONDANSETRON 4 MG/2 ML INJ IV (15:10)
[2022-01-09] MEDS: SODIUM CHLORIDE 0.9% 1,000 ML 1000 ML IV (15:11)
[2022-01-09] MEDS: MORPHINE 4 MG/ML INJ IV (15:11)
[2022-01-09] MEDS: KETOROLAC 30 MG/ML VIAL 15 MG IV (17:30)
== END 2022-01-09 17:36 | disposition home or self-care (01) ==
PROVIDERS: Emergency Medicine; Emergency Provider Physician Assistant Medical; PCP Family Medicine
DX: K57.92 Diverticulitis of intestine, part unspecified, without perforation or abscess without bleeding (principal)
CPT/HCPCS: 36415; 74177; 80053; 83690; 85025; 96361; 96374; 96375; 99284; J1885; J2270; J2405; Q9967

== ENCOUNTER → 2022-07-05 09:35 | Outpatient (CLI) | payer OTHER, SELFPAY ==
[2022-07-05 10:14] LABS: Add Manual Diff / Slide Review NO; Basophils Absolute Auto 100 /uL (0-100); Basophils Percent Auto 0.9 % (0-2); Eosinophils Absolute Auto 100 /uL (0-450); Eosinophils Percent Auto 1.9 % (2-4); Hematocrit 45.5 % (41-53); Hemoglobin 15.8 g/dL (13.5-17.5); Lymphocytes Absolute Auto 1600 /uL (1100-4500); Lymphocytes Percent Auto 24.6 % (25-40); Mean Corpuscular HGB Conc 34.8 % (30-36); Mean Corpuscular Hemoglobin 30.5 PG (26-34); Mean Corpuscular Volume 87.7 fL (80-100); Monocytes Absolute Auto 700 /uL (0-900); Monocytes Percent Auto 11.1 % (3-14); Neutrophils Absolute Auto 3900 /uL (1500-7000); Neutrophils Percent Auto 61.5 % (50-75); Platelet Count 280 X10^3/uL (150-400); Red Blood Cell Count 5.19 X10^6/uL (4.5-5.9); Red Cell Distribution Width 12.9 % (11.6-14.8); White Blood Cell Count 6.4 X10^3/uL (4.5-11.0)
[2022-07-05 10:32] LABS: Alanine Aminotransferase 41 IU/L (<50); Albumin 4.4 g/dL (3.5-5.0); Albumin Globulin Ratio 1.5 (1.0-2.8); Alkaline Phosphatase 62 U/L (38-126); Aspartate Aminotransferase 30 IU/L (17-59); BUN Creatinine Ratio 16.7 (6-22); Bilirubin Total 0.7 mg/dL (0.2-1.3); Blood Urea Nitrogen 14 mg/dL (9-20); Calcium 9.3 mg/dL (8.4-10.2); Carbon Dioxide 27 mmol/L (22-32); Chloride 105 mmol/L (98-107); Cholesterol 226 mg/dL (140-199); Estimated Glomerular Filt Rate > 60 mL/min (>60); Globulin 2.9 g/dL (1.7-4.1); Glucose 112 mg/dL (70-100); HDL Cholesterol 48 mg/dL (40-60); HEMOLYSIS < 15 (0-50); LDL Cholesterol Calculated 151 mg/dL (<100); Potassium 4.3 mmol/L (3.4-5.1); Sodium 137 mmol/L (137-145); Total Protein 7.3 g/dL (6.3-8.2); Triglycerides 134 mg/dL (35-150)
[2022-07-06 07:50] LABS: x Labcorp Estim. Avg Glu (eAG) 114 mg/dL (.); x Labcorp Hemoglobin A1c 5.6 % (4.8-5.6)
== END ==
PROVIDERS: PCP Family Medicine; Referring Provider Family Medicine; Visit Provider Family Medicine
DX: E78.2 Mixed hyperlipidemia (principal); Z83.3 Family history of diabetes mellitus; Z87.39 Personal history of other diseases of the musculoskeletal system and connective tissue
CPT/HCPCS: 36415; 80053; 80061; 83036; 84550; 85025

== ENCOUNTER 2022-07-16 06:36 | Emergency (ER) | payer OTHER, SELFPAY ==
[2022-07-16] VITALS (7 sets, daily range): BP systolic 121–138; BP diastolic 62–86; PULSE 55–67; RESP 17; TEMP 36.6; O2SAT 93–99
--- NOTE | 2022-07-16 06:59 | PC.NURSE ---
pt c/o back pain x a couple of days woke this am with severe LLQ pain and left side/flank pain, pt has a hx of kidney stones
[2022-07-16 07:00] LABS: Bacteria Urine None Seen; RBC Urine 5-10/HPF (0-5/HPF); WBC Urine None Seen (0-5/HPF)
[2022-07-16 07:05] LABS: Add Manual Diff / Slide Review NO; Basophils Absolute Auto 100 /uL (0-100); Basophils Percent Auto 0.4 % (0-2); Eosinophils Absolute Auto 100 /uL (0-450); Eosinophils Percent Auto 0.9 % (2-4); Hematocrit 44.1 % (41-53); Hemoglobin 15.3 g/dL (13.5-17.5); Lymphocytes Absolute Auto 1500 /uL (1100-4500); Lymphocytes Percent Auto 10.7 % (25-40); Mean Corpuscular HGB Conc 34.6 % (30-36); Mean Corpuscular Hemoglobin 30.6 PG (26-34); Mean Corpuscular Volume 88.3 fL (80-100); Monocytes Absolute Auto 1100 /uL (0-900); Monocytes Percent Auto 7.9 % (3-14); Neutrophils Absolute Auto 11200 /uL (1500-7000); Neutrophils Percent Auto 80.1 % (50-75); Platelet Count 256 X10^3/uL (150-400); Red Blood Cell Count 4.99 X10^6/uL (4.5-5.9); Red Cell Distribution Width 12.8 % (11.6-14.8)
--- NOTE | 2022-07-16 07:18 | ED_ITS ---
HPI - Back Pain/Injury General Chief Complaint: Back Pain/Injury Stated Complaint: LEFT SIDE PAIN, VOMITING, ABD PAIN Time Seen by Provider: 07/16/22 06:51 Source: patient History of Present Illness HPI Narrative: Patient woke about 3:00 a.m. this morning with sharp left flank pain, the pain is now his left lower quadrant. He is vomited. Nausea persist, vomiting is not continuing. Pain radiates to his testicles. He denies hematuria or pyuria. He has a history of kidney stones, as well as a history of diverticulitis. He is no nausea, vomiting or diarrhea. He is no hematochezia. He has no fever or chills. Related Data Previous Rx's Medication Instructions Recorded hydrocodone 5 mg-acetaminophen 325 1 tab PO Q4HR #14 tabs 07/16/22 mg tablet ondansetron 4 mg disintegrating 4 mg PO Q4HR PRN nausea and 07/16/22 tablet vomiting #15 tabs tamsulosin 0.4 mg capsule (Flomax) 0.4 mg PO DAILY #20 caps 07/16/22 Allergies Allergy/AdvReac Type Severity Reaction Status Date / Time No Known Drug Allergies Allergy Verified 06/30/22 13:11 Review of Systems Review of Systems ROS Unobtainable: All systems reviewed & are unremarkable except as noted in HPI and below Constitutional Constitutional: Denies body ache(s), Denies chills, Denies fatigue, Denies fever(s) and Denies weakness ENT Ears, Nose, Mouth, and Throat: Denies dizziness Cardiovascular Cardiovascular: Denies chest pain, Denies rapid heart rate and Denies dyspnea on exertion Respiratory Respiratory: Denies cough and Denies dyspnea on exertion Gastrointestinal Gastrointestinal: Reports as per HPI, Reports abdominal pain, Reports nausea and Reports vomiting Genitourinary Genitourinary: Denies hematuria Comments: Scrotal pain. Musculoskeletal Musculoskeletal: Reports back pain and Denies numbness Integumentary/Breasts Skin/Breast: Denies lesions and Denies rash Neurologic Neurologic: Denies dizziness, Denies numbness and Denies weakness Endocrine Endocrine: Denies fatigue Hematologic/Lymphatic On Anticoagulants: No Patient History Medical History (Updated 07/16/22 @ 09:10 by Jaxon Browne MD) History of diverticulitis History of gout History of kidney stones Family History Father Cancer Uncle Diabetes mellitus Grandfather Congestive heart failure Social History household members: spouse Smoking Status: Current every day smoker Tobacco: How many years used: 18 quit status: considering quitting (I would like to talk to Celina about starting Chanitix if it is an option.) second hand exposure: Yes ('a little bit) alcohol intake: current substance use type: marijuana (I smoke marijuana every day. ) Smoking Status: Current every day smoker tobacco type: vaping alcohol intake frequency: 3 or more drinks per day Substance Use Type: marijuana Exam Initial Vital Signs Initial Vital Signs: Vital Signs Temperature 97.9 F 07/16/22 07:00 Pulse Rate 65 07/16/22 07:00 Respiratory Rate 17 07/16/22 07:00 Blood Pressure 125/62 07/16/22 07:00 Pulse Oximetry 97 07/16/22 07:00 Oxygen Delivery Method Room Air 07/16/22 07:00 Const General: cooperative, well developed, well groomed and ill appearing Nutritional Appearance: average body habitus [facility] Head: normocephalic and atraumatic Resp Effort & Inspection: normal respiratory effort Auscultation: clear to auscultation bilaterally Cardio Rate: regular rate Rhythm: regular rhythm Heart Sounds: S1 normal, S2 normal and no murmurs GI Other: Left lower quadrant abdominal pain. No distension. No masses. Slight discomfort with palpation. Normal bowel sounds. Back/Spine/Pelvis Back: No CVA tenderness Skin General: no rashes or lesions noted Neuro General: patient alert, patient awake, patient oriented x3 and no focal motor deficits Extrem General: normal to inspection Psych Mental Status: mental status grossly normal Course Course Course Narrative: CT revealed 2 small left distal ureter kidney stones. He initially obtain relief with Toradol and Zofran. Pain returned. He was given Flomax after the diagnosis was made. Dilaudid was given for pain. He is now comfortable. He will be discharged on Flomax, Zofran and hydrocodone. He is advised to follow up with Urology or his PCM if the stone has not passed within a week. Orders Ordered: ED Orders 07/16/22 06:45 Urine Culture Stat Urine Microscopic Stat 07/16/22 06:55 Complete Blood Count AUTO DIFF Stat Comprehensive Metabolic Panel Stat Lipase Stat 07/16/22 07:32 CT kidney ureter bladder (KUB) Stat Discontinued Medications Hydromorphone HCl (Hydromorphone 0.5 Mg Inj) 0.5 mg IV NOW ONE Stop: 07/16/22 08:28 Last Admin: 07/16/22 08:34 Dose: 0.5 mg Documented By: JAYLYN Sodium Chloride (Normal Saline 0.9%) 1,000 mls @ 150 mls/hr IV CONT VANESSA Last Infusion: 07/16/22 09:35 Dose: 0 mls/hr Documented By: Admin: 07/16/22 07:56 Dose: 150 mls/hr Documented By: GISSEL Ketorolac Tromethamine (Ketorolac 30 Mg/Ml Vial) 30 mg IV NOW ONE Stop: 07/16/22 07:17 Last Admin: 07/16/22 07:38 Dose: 30 mg Documented By: GISSEL Ondansetron HCl (Ondansetron 4 Mg Odt) 4 mg PO NOW PRN PRN Reason: Nausea And Vomiting Ondansetron HCl (Ondansetron 4 Mg/2 Ml Inj) 4 mg IV NOW PRN PRN Reason: Nausea And Vomiting Last Admin: 07/16/22 07:38 Dose: 4 mg Documented By: GISSEL Tamsulosin HCl (Tamsulosin 0.4 Mg Capsule) 0.4 mg PO NOW ONE Stop: 07/16/22 08:28 Last Admin: 07/16/22 08:35 Dose: 0.4 mg Documented By: JAYLYN Vital Signs Vital signs: Vital Signs - 8 hr 07/16/22 07:00 07/16/22 07:07 07/16/22 07:45 Temperature 97.9 F Pulse Rate 65 62 Respiratory Rate 17 Blood Pressure 125/62 121/81 Pulse Oximetry 97 98 Oxygen Delivery Method Room Air 07/16/22 07:45 07/16/22 08:00 07/16/22 08:00 Temperature Pulse Rate 55 L 58 L Respiratory Rate Blood Pressure 127/84 Pulse Oximetry 93 94 Oxygen Delivery Method Room Air Room Air 07/16/22 08:30 07/16/22 08:31 07/16/22 08:31 Temperature Pulse Rate 57 L 60 Respiratory Rate Blood Pressure 138/86 Pulse Oximetry 99 99 Oxygen Delivery Method 07/16/22 09:00 07/16/22 09:00 Temperature Pulse Rate 67 Respiratory Rate Blood Pressure 132/72 Pulse Oximetry 94 Oxygen Delivery Method Room Air MDM - Back Pain/Injury Lab Data 07/16/22 06:55 07/16/22 06:55 Labs: Lab Results 07/16/22 07/16/22 07/16/22 Range/Units 06:45 06:55 06:55 WBC 14.0 H (4.5-11.0) X10^3/uL RBC 4.99 (4.5-5.9) X10^6/uL Hgb 15.3 (13.5-17.5) g/dL Hct 44.1 (41-53) % MCV 88.3 (80-100) fL MCH 30.6 (26-34) PG MCHC 34.6 (30-36) % RDW 12.8 (11.6-14.8) % Plt Count 256 (150-400) X10^3/uL Neut % (Auto) 80.1 H (50-75) % Lymph % (Auto) 10.7 L (25-40) % [place] % (Auto) 7.9 (3-14) % Eos % (Auto) 0.9 L (2-4) % Baso % (Auto) 0.4 (0-2) % Neut # (Auto) 28880 H (5018-5407) /uL Lymph # (Auto) 1500 (0167-8887) /uL [place] # (Auto) 1100 H (0-900) /uL Eos # (Auto) 100 (0-450) /uL Baso # (Auto) 100 (0-100) /uL Sodium 137 (137-145) mmol/L Potassium 4.1 (3.4-5.1) mmol/L Chloride 105 (98-107) mmol/L Carbon Dioxide 24 (22-32) mmol/L BUN 18 (9-20) mg/dL Creatinine 1.18 (0.66-1.25) mg/dL Estimated GFR > 60 (>60) mL/min BUN/Creatinine Ratio 15.3 (6-22) Glucose 115 H (70-100) mg/dL Calcium 8.9 (8.4-10.2) mg/dL Total Bilirubin 0.5 (0.2-1.3) mg/dL AST 31 (17-59) IU/L ALT 31 (<50) IU/L Alkaline Phosphatase 65 (38-126) U/L Total Protein 7.0 (6.3-8.2) g/dL Albumin 4.1 (3.5-5.0) g/dL Globulin 2.9 (1.7-4.1) g/dL Albumin/Globulin Ratio 1.4 (1.0-2.8) Lipase 72 (23-300) U/L Urine RBC 5-10/hpf H (0-5/HPF) Urine WBC None seen (0-5/HPF) Urine Bacteria None seen (None) Urine Dip Bedside Urine Glucose Negative Bedside Urine Bilirubin - Negative Bedside Urine Ketone - Negative Urine Specific [place] 1.030 Bedside Urine Occult Blood +++ Bedside Urine pH 6 Bedside Urine Protein +/- 15 Bedside Urine Urobilinogen - Negative Bedside Urine Nitrite - Negative Bedside Urine Leukocytes - Negative Esterase Imaging Data CT scan - abdomen/pelvis: Radiologist's Impression: 1. A couple of obstructive stones are seen in the proximal left ureter measuring 3 and 5 mm.? There is mild left hydronephrosis and perinephric stranding. ? 2.? Nonobstructive right renal stones. ? 3. Diverticulosis without acute diverticulitis. ? 4. Small hiatal hernia. Discharge Plan Departure Patient Disposition: Home Clinical Impression: Kidney stone Instructions: DI for Kidney Stones Activity Restrictions/Additional Instructions: Be sure you are drinking plenty of water at all times. Advil 3 tablets every 6 hours as needed for pain. Hydrocodone every 4 hours for added pain control. Zofran every 4 hours as needed for nausea. Flomax 1 tablet daily, the dilates your urinary system and helps the stones passed. Screen your urine to identify the stones. You are expecting 2 small stones the past. If you not pass the stones within a week, contact your PCM or urology for follow-up. Return to ER as needed. Prescriptions: New tamsulosin [Flomax] 0.4 mg capsule 0.4 mg PO DAILY Qty: 20 0RF ondansetron 4 mg tablet,disintegrating 4 mg PO Q4HR PRN (Reason: nausea and vomiting) Qty: 15 0RF hydrocodone-acetaminophen 5-325 mg tablet 1 tab PO Q4HR Qty: 14 0RF Referrals: Neri Hernandez DO [Primary Care Provider] - Rasheed Page MD [Physician] - Stand Alone Forms: Patient Portal/API
[2022-07-16 07:20] LABS: Alanine Aminotransferase 31 IU/L (<50); Albumin 4.1 g/dL (3.5-5.0); Albumin Globulin Ratio 1.4 (1.0-2.8); Alkaline Phosphatase 65 U/L (38-126); Aspartate Aminotransferase 31 IU/L (17-59); BUN Creatinine Ratio 15.3 (6-22); Bilirubin Total 0.5 mg/dL (0.2-1.3); Blood Urea Nitrogen 18 mg/dL (9-20); Calcium 8.9 mg/dL (8.4-10.2); Carbon Dioxide 24 mmol/L (22-32); Chloride 105 mmol/L (98-107); Estimated Glomerular Filt Rate > 60 mL/min (>60); Globulin 2.9 g/dL (1.7-4.1); Glucose 115 mg/dL (70-100); HEMOLYSIS < 15 (0-50); Lipase 72 U/L (23-300); Potassium 4.1 mmol/L (3.4-5.1); Sodium 137 mmol/L (137-145)
--- NOTE | 2022-07-16 07:32 | DI.CT.S_ITS ---
PROCEDURE: CT KIDNEY URETER BLADDER (KUB) INDICATIONS: LLQ pain. Hematuria. TECHNIQUE: Axial sections were acquired from the lung bases to the pubic symphysis. Coronal and sagittal reformats were performed. For radiation dose reduction, the following was used: automated exposure control, adjustment of mA and/or kV according to patient size. COMPARISON: [facility], CT, CT ABDOMEN PELVIS W CON, 01/09/2022, 15:42. [facility], CT, CT ABDOMEN PELVIS W CON, 09/21/2020, 2:52. [facility], CT, CT KIDNEY URETER BLADDER (KUB), 06/11/2020, 18:09. FINDINGS: Image quality: Excellent. Lung bases: Unremarkable. Small hiatal hernia. Heart: No significant findings. URINARY: Right Kidney and ureter: Less than 5 nonobstructive stones are seen in kidney measuring 1-3 mm. No hydronephrosis. Left Kidney and ureter: There are 2 stones in the proximal left ureter measuring 3 mm and 5 mm. The largest stone has CT density 573 HU. There is mild left hydronephrosis and perinephric stranding. No other left renal calculi. Bladder: Normal wall thickness. No stones. ABDOMEN: Liver: Unremarkable. Gallbladder: Unremarkable. Biliary ducts: Unremarkable. Pancreas: Unremarkable. Spleen: Unremarkable. Adrenal Glands: Unremarkable. Stomach and Bowel: Stomach, small bowel loops, and colon are normal in caliber. Diverticulosis without acute diverticulitis. Normal appendix. Peritoneum: No abnormal intraperitoneal fluid. No free air. Ventral Wall: No hernia. Abdominal Nodes: No enlarged retroperitoneal or mesenteric lymph nodes. Vessels: Aorta and inferior vena cava are normal in size. PELVIS: Pelvic Organs: Unremarkable. Pelvic Nodes: Unremarkable. Miscellaneous: No inguinal hernias are seen. Bones: Unremarkable. IMPRESSION: 1. A couple of obstructive stones are seen in the proximal left ureter measuring 3 and 5 mm. There is mild left hydronephrosis and perinephric stranding. 2. Nonobstructive right renal stones. 3. Diverticulosis without acute diverticulitis. 4. Small hiatal hernia. Dictated by: Enoc Juan M.D. on 07/16/2022 at 7:43 Approved by: Enoc Juan M.D. on 07/16/2022 at 7:48
[2022-07-16] MEDS: KETOROLAC 30 MG/ML VIAL IV (07:38)
[2022-07-16] MEDS: ONDANSETRON 4 MG/2 ML INJ IV (07:38)
[2022-07-16] MEDS: SODIUM CHLORIDE 0.9% 1,000 ML 150 ML IV (07:56)
[2022-07-16] MEDS: HYDROMORPHONE 0.5 MG INJ IV (08:34)
[2022-07-16] MEDS: TAMSULOSIN 0.4 MG CAPSULE PO (08:35)
--- NOTE | 2022-07-16 09:40 | PC.NURSE ---
Patient requested more pain medication prior to discharge, pt educated on prescriptions. Dr. Browne notified and pt informed no further orders.
== END 2022-07-16 09:38 | disposition home or self-care (01) ==
PROVIDERS: Emergency Medicine; Emergency Provider Emergency Medicine; PCP Family Medicine
DX: N20.0 Calculus of kidney (principal); R11.2 Nausea with vomiting, unspecified
CPT/HCPCS: 36415; 74176; 80053; 81003; 81015; 83690; 85025; 87086; 96361; 96374; 96375; 99284; J1170; J1885; J2405

== ENCOUNTER 2023-03-27 09:09 | Emergency (ER) | payer OTHER, SELFPAY ==
[2023-03-27 09:14] VITALS: BP 139/86; PULSE 69; RESP 14; TEMP 36.3; O2SAT 98; BMI 27.4
[2023-03-27 09:33] LABS: Add Manual Diff / Slide Review NO; Basophils Absolute Auto 0 /uL (0-100); Basophils Percent Auto 0.2 % (0-2); Eosinophils Absolute Auto 100 /uL (0-450); Eosinophils Percent Auto 0.9 % (2-4); Hematocrit 46.6 % (41-53); Hemoglobin 15.8 g/dL (13.5-17.5); Lymphocytes Absolute Auto 1600 /uL (1100-4500); Lymphocytes Percent Auto 10.4 % (25-40); Mean Corpuscular Hemoglobin 30.5 PG (26-34); Mean Corpuscular Volume 89.7 fL (80-100); Monocytes Absolute Auto 1800 /uL (0-900); Monocytes Percent Auto 11.7 % (3-14); Neutrophils Absolute Auto 11700 /uL (1500-7000); Neutrophils Percent Auto 76.8 % (50-75); Platelet Count 290 X10^3/uL (150-400); Red Blood Cell Count 5.19 X10^6/uL (4.5-5.9); Red Cell Distribution Width 12.9 % (11.6-14.8); White Blood Cell Count 15.2 X10^3/uL (4.5-11.0)
--- NOTE | 2023-03-27 09:33 | ED_ITS ---
HPI - General Adult General Chief complaint: Abdominal Pain Stated complaint: lt leg and abd pain Time Seen by Provider: 03/27/23 09:26 Source: patient, RN notes reviewed and old records reviewed Mode of arrival: Ambulatory Limitations: no limitations History of Present Illness HPI narrative: 42-year-old male with history of kidney stones, diverticulitis and sciatica. Patient states he has had a week of symptoms that have been slowly progressive he states started more in his left thigh and back area but has moved into his left abdomen. Patient states he has had some paresthesias down his leg which have worsened over the past week. He denies any weakness. He denies any loss of bowel or bladder control. Denies fevers or chills. No nausea or vomiting. Denies any chest pain or shortness of breath. Does describe left lower abdominal pain. States he has had kidney stones in the past but usually it is just his flank. He has had diverticulitis in the past she is usually the left side and sometimes causes some pain down into his thigh. Patient states he also has bilateral testicular pain. He had sensation of urinary frequency, no dysuria or discharge. Patient states movement does not seem to make it any worse or better. He does find he is more comfortable standing on the leg. He denies any swelling redness or other skin changes of the leg or back. Patient states feels somewhat similar to when he has had sciatica in the past but does not usually abdominal pain somewhat similar to when he has had diverticulitis but states the paresthesias or different. He has states he is has not taken anything for pain at home. Denies any surgeries. No known drug allergies. Uses tobacco daily, occasional alcohol, uses marijuana denies any IV drugs. Dr. Hernandez is his primary care physician. Related Data Previous Rx's Medication Instructions Recorded amoxicillin 875 mg-potassium 1 tab PO Q12H #20 tabs 03/27/23 clavulanate 125 mg tablet hydrocodone 5 mg-acetaminophen 325 1 tab PO QID PRN pain #14 tabs 03/27/23 mg tablet Allergies Allergy/AdvReac Type Severity Reaction Status Date / Time No Known Drug Allergies Allergy Verified 03/27/23 09:43 Review of Systems Review of Systems ROS Unobtainable: All systems reviewed & are unremarkable except as noted in HPI and below Patient History Medical History (Updated 03/27/23 @ 10:29 by Keyana Beebe DO) History of gout History of kidney stones History of diverticulitis Family History Father Cancer Uncle Diabetes mellitus Grandfather Congestive heart failure Social History household members: spouse Smoking Status: Current every day smoker Tobacco: How many years used: 18 quit status: considering quitting (I would like to talk to Celina about starting Chanitix if it is an option.) second hand exposure: Yes ('a little bit) alcohol intake: current substance use type: marijuana (I smoke marijuana every day. ) Smoking Status: Current every day smoker tobacco type: vaping alcohol intake frequency: 0-2 drinks per day Substance Use Type: marijuana Exam Narrative Exam Narrative: GENERAL: Alert and oriented x three, moderate distress. HEENT: Head normocephalic, atraumatic, EOMI, pupils reactive, face symmetric, moist mucous membranes NECK: Supple, full range of motion CARDIOVASCULAR: Regular rate and rhythm without murmurs, rubs or gallops. RESPIRATORY: Breath sounds equal bilaterally, no wheezes rales or rhonchi. ABDOMEN: Soft, nontender. Nondistended. Normoactive bowel sounds all 4 quadrants. No guarding or rebound, rigidity, no mass : No CVA tenderness BACK: No cervical, thoracic or lumbar vertebral point tenderness. Patient has normal range of motion. Patient's gait is normal. Rectal exam is deferred. Muscle strength is 5/5 in lower extremities, DTRs are 2/4 and lower extremities. Dorsalis pedis and tibialis pulses are 2+ and lower extremities. Sensation is intact in the lower extremities. EXTREMITIES: Normal range of motion, no clubbing or edema. Neurovascularly intact NEUROLOGICAL: Cranial nerves II through XII grossly intact. Moving all extremities SKIN: Warm, dry, no petechiae, no rashes or lesions. Initial Vital Signs Initial Vital Signs: Vital Signs Temperature 97.3 F L 03/27/23 09:14 Pulse Rate 69 03/27/23 09:14 Respiratory Rate 14 03/27/23 09:14 Blood Pressure 139/86 03/27/23 09:14 Pulse Oximetry 98 03/27/23 09:14 Oxygen Delivery Method Room Air 03/27/23 09:14 Course Orders Ordered: ED Orders 03/27/23 09:25 Complete Blood Count AUTO DIFF Stat Comprehensive Metabolic Panel Stat Lipase Stat 03/27/23 09:46 CT abdomen pelvis w con Stat Discontinued Medications Amoxicillin/Clavulanate Potassium (Amoxicillin/Clav 875/125 Mg) 1 tab PO NOW ONE Stop: 03/27/23 11:10 Last Admin: 03/27/23 11:21 Dose: 1 tab Documented By: MARIELA Ketorolac Tromethamine (Ketorolac 30 Mg/Ml Vial) 15 mg IV NOW ONE Stop: 03/27/23 09:28 Last Admin: 03/27/23 09:47 Dose: 15 mg Documented By: KURTIS Morphine Sulfate (Morphine 4 Mg/Ml Inj) 4 mg IV NOW ONE Stop: 03/27/23 10:29 Last Admin: 03/27/23 10:36 Dose: 4 mg Documented By: KARLO Morphine Sulfate (Morphine 4 Mg/Ml Inj) 4 mg IV NOW ONE Stop: 03/27/23 11:10 Last Admin: 03/27/23 11:22 Dose: 4 mg Documented By: MARIELA Ondansetron HCl (Ondansetron 4 Mg Odt) 4 mg PO NOW PRN PRN Reason: Nausea And Vomiting Ondansetron HCl (Ondansetron 4 Mg/2 Ml Inj) 4 mg IV NOW PRN PRN Reason: Nausea And Vomiting Vital Signs Vital signs: Vital Signs - 8 hr 03/27/23 10:39 03/27/23 11:00 03/27/23 11:30 Pulse Rate 71 54 L 57 L Respiratory Rate Blood Pressure Pulse Oximetry 98 96 97 Oxygen Delivery Method 03/27/23 11:38 Pulse Rate 58 L Respiratory Rate 14 Blood Pressure 141/80 H Pulse Oximetry 99 Oxygen Delivery Method Room Air Medical Decision Making Lab Data 03/27/23 09:25 03/27/23 09:25 Labs: Lab Results 03/27/23 Range/Units 09:25 WBC 15.2 H (4.5-11.0) X10^3/uL RBC 5.19 (4.5-5.9) X10^6/uL Hgb 15.8 (13.5-17.5) g/dL Hct 46.6 (41-53) % MCV 89.7 (80-100) fL MCH 30.5 (26-34) PG MCHC 34.0 (30-36) % RDW 12.9 (11.6-14.8) % Plt Count 290 (150-400) X10^3/uL Neut % (Auto) 76.8 H (50-75) % Lymph % (Auto) 10.4 L (25-40) % [place] % (Auto) 11.7 (3-14) % Eos % (Auto) 0.9 L (2-4) % Baso % (Auto) 0.2 (0-2) % Neut # (Auto) 72873 H (0495-1619) /uL Lymph # (Auto) 1600 (0000-5863) /uL [place] # (Auto) 1800 H (0-900) /uL Eos # (Auto) 100 (0-450) /uL Baso # (Auto) 0 (0-100) /uL Sodium 137 (137-145) mmol/L Potassium 4.5 (3.4-5.1) mmol/L Chloride 103 (98-107) mmol/L Carbon Dioxide 25 (22-32) mmol/L BUN 16 (9-20) mg/dL Creatinine 0.85 (0.66-1.25) mg/dL Estimated GFR > 60 (>60) mL/min BUN/Creatinine Ratio 18.8 (6-22) Glucose 115 H (70-100) mg/dL Calcium 9.9 (8.4-10.2) mg/dL Total Bilirubin 0.7 (0.2-1.3) mg/dL AST 29 (17-59) IU/L ALT 28 (<50) IU/L Alkaline Phosphatase 70 (38-126) U/L Total Protein 8.3 H (6.3-8.2) g/dL Albumin 4.8 (3.5-5.0) g/dL Globulin 3.5 (1.7-4.1) g/dL Albumin/Globulin Ratio 1.4 (1.0-2.8) Lipase 87 (23-300) U/L Urine Dip Bedside Urine Glucose Negative Bedside Urine Bilirubin - Negative Bedside Urine Ketone - Negative Urine Specific [place] 1.010 Bedside Urine Occult Blood - Negative Bedside Urine pH 6.0 Bedside Urine Protein - Negative Bedside Urine Urobilinogen - Negative Bedside Urine Nitrite - Negative Bedside Urine Leukocytes - Negative Esterase Point of care testing: Urine Dip Bedside Urine Glucose Negative Bedside Urine Bilirubin - Negative Bedside Urine Ketone - Negative Urine Specific [place] 1.010 Bedside Urine Occult Blood - Negative Bedside Urine pH 6.0 Bedside Urine Protein - Negative Bedside Urine Urobilinogen - Negative Bedside Urine Nitrite - Negative Bedside Urine Leukocytes - Negative Esterase MDM Narrative Medical decision making narrative: 42-year-old male history of, diverticulitis and sciatica. Patient states he has had increasing left leg pain, numbness and tingling but states he also has a abdominal pain and pain into the testicles patient states symptoms are somewhat similar to when he has had sciatica but not the abdominal portion and somewhat similar to when he has had diverticulitis but not the paresthesias. Patient has had kidney stones but states usually he has just flank pain. He does not have any acute neurologic changes or red flag symptoms from back pain perspective. He is nontender on exam I am not able to reproduce any pain with palpation on his back extremities or abdomen. Suspect more likely back or sciatica pain but with his history of recurrent diverticulitis and abdominal pain labs and CT abdomen pelvis obtained. Labs show leukocytosis at 15 patient appears right high typically, his leftward shift also similar on prior labs normal hemoglobin. Electrolytes, renal function LFTs are negative total protein slightly high glucose is 115. Point of care urine is negative. CT abdomen pelvis shows sigmoid diverticulitis. Patient received Toradol. Patient's pain improved but still present was given additional dose of pain medication. Patient has tolerated Augmentin in the past. Discharge Plan Departure Patient Disposition: Home Clinical Impression: Sigmoid diverticulitis Activity Restrictions/Additional Instructions: Please follow-up as needed. Your imaging today shows sigmoid diverticulitis. Take antibiotics until completely gone. Your next dose will be this evening. You may take Tylenol up to a 1000 mg every 6 hours and/or ibuprofen up to 600 mg every 6 hours as needed. If inadequate for pain control you can take 1-2 tablets of oxycodone every 6 hours needed. This medication can make you sleepy do not drive, perform hazardous activities or make any major decisions while taking it. This medication will make you constipated please take a stool softener once to twice daily until stools are soft and regular. Prescription sent to [facility] in [place] Please return for new or worsening abdominal back or flank pain passing out, persistent vomiting, lightheadedness or passing out or other new or concerning changes. Rx changed to norco, pharmacy is out of oxycodone Prescriptions: New amoxicillin-pot clavulanate 875-125 mg tablet 1 tab PO Q12H Qty: 20 0RF hydrocodone-acetaminophen 5-325 mg tablet 1 tab PO QID PRN (Reason: pain) Qty: 14 0RF Referrals: Neri Hernandez DO [Primary Care Provider] - Stand Alone Forms: Patient Portal/API
[2023-03-27 09:45] LABS: Alanine Aminotransferase 28 IU/L (<50); Albumin 4.8 g/dL (3.5-5.0); Albumin Globulin Ratio 1.4 (1.0-2.8); Alkaline Phosphatase 70 U/L (38-126); Aspartate Aminotransferase 29 IU/L (17-59); BUN Creatinine Ratio 18.8 (6-22); Bilirubin Total 0.7 mg/dL (0.2-1.3); Blood Urea Nitrogen 16 mg/dL (9-20); Calcium 9.9 mg/dL (8.4-10.2); Carbon Dioxide 25 mmol/L (22-32); Chloride 103 mmol/L (98-107); Estimated Glomerular Filt Rate > 60 mL/min (>60); Globulin 3.5 g/dL (1.7-4.1); Glucose 115 mg/dL (70-100); HEMOLYSIS < 15 (0-50); Lipase 87 U/L (23-300); Potassium 4.5 mmol/L (3.4-5.1); Sodium 137 mmol/L (137-145); Total Protein 8.3 g/dL (6.3-8.2)
--- NOTE | 2023-03-27 09:46 | DI.CT.S_ITS ---
PROCEDURE: CT ABDOMEN PELVIS W CON INDICATIONS: pain L abd radiates down leg/testicles, no change w/ movemen TECHNIQUE: After the administration of intravenous contrast, axial sections acquired from the lung bases to the pubic symphysis. Coronal and sagittal reformats were performed. For radiation dose reduction, the following was used: automated exposure control, adjustment of mA and/or kV according to patient size. COMPARISON: [facility], CT, CT KIDNEY URETER BLADDER (KUB), 07/16/2022, 7:22. [facility], CT, CT ABDOMEN PELVIS W CON, 01/09/2022, 15:42. FINDINGS: Image quality: Diagnostic. Lower Chest: No significant findings. ABDOMEN: Liver: No solid mass. Gallbladder: Tiny calcified gallstone. No wall thickening. Biliary ducts: No biliary dilation. Pancreas: No ductal dilation. Spleen: Size is within normal limits. Adrenal Glands: No adrenal nodules. Kidneys and Ureters: Multiple small nonobstructing right renal stones ranging in size from 1-3 millimeters. No hydronephrosis. No solid mass. No complex renal cystic lesion which requires follow up. Stomach and Bowel: Multiple colonic diverticuli. Sigmoid colon circumferential wall thickening and adjacent inflammation most compatible with diverticulitis. The appendix is normal. Peritoneum: Small amount of low-density free fluid in the lower pelvis with absence of peripheral enhancement. No free intraperitoneal air. Ventral Wall: No hernia. Abdominal Nodes: No retroperitoneal or mesenteric adenopathy by size criteria. Vessels: Aorta and inferior vena cava are normal in size. PELVIS: Pelvic Organs: Unremarkable. Bladder: Unremarkable. Pelvic Nodes: No enlarged lymph nodes. Miscellaneous: No inguinal hernias are seen. Bones: No aggressive osseous abnormality. IMPRESSION: Sigmoid colon diverticulitis. Nonobstructing small right renal stones. No hydronephrosis. Dictated by: Darya Blum MD, PhD on 03/27/2023 at 10:01 Approved by: Darya Blum MD, PhD on 03/27/2023 at 10:07
[2023-03-27] MEDS: KETOROLAC 30 MG/ML VIAL 15 MG IV (09:47)
[2023-03-27] MEDS: MORPHINE 4 MG/ML INJ IV ×2 (10:36→11:22)
[2023-03-27 10:39] VITALS: PULSE 71; O2SAT 98
[2023-03-27 11:00] VITALS: PULSE 54; O2SAT 96
[2023-03-27] MEDS: AMOXICILLIN/CLAV 875/125 MG 1 TAB PO (11:21)
[2023-03-27 11:30] VITALS: PULSE 57; O2SAT 97
[2023-03-27 11:38] VITALS: BP 141/80; PULSE 58; RESP 14; O2SAT 99
== END 2023-03-27 11:39 | disposition home or self-care (01) ==
PROVIDERS: Emergency Provider Emergency Medicine; PCP Family Medicine
DX: K57.32 Diverticulitis of large intestine without perforation or abscess without bleeding (principal)
CPT/HCPCS: 36415; 74177; 80053; 81003; 83690; 85025; 96374; 96375; 96376; 99284; J1885; J2270; Q9967

== ENCOUNTER → 2023-04-06 15:16 | Outpatient (CLI) | payer OTHER, SELFPAY ==
--- NOTE | 2023-04-06 15:17 | DI.RAD.S_ITS ---
PROCEDURE: XR LUMBAR SPINE MIN 4V INDICATIONS: eval back pain TECHNIQUE: Five views of the lumbar spine COMPARISON: None. FINDINGS: Bones: Overall mild degenerative changes with disc space height loss, facet arthropathy, and osteophytes, particularly in the lower lumbar spine. Vertebral body heights are well maintained. No traumatic subluxation. No definite pars defects identified on oblique views, although evaluation at some levels is obscured by bowel gas. Soft tissues: No suspicious calcifications. IMPRESSION: Mild degenerative changes in the lower lumbar spine. No acute radiographic abnormality. If there is high concern for further derangement, consider MRI evaluation. Dictated by: Naveen Farah M.D. on 04/06/2023 at 16:03 Approved by: Naveen Farah M.D. on 04/06/2023 at 16:05
== END ==
PROVIDERS: PCP Family Medicine; Referring Provider Family Medicine; Visit Provider Family Medicine
DX: M47.816 Spondylosis without myelopathy or radiculopathy, lumbar region (principal); M54.9 Dorsalgia, unspecified
CPT/HCPCS: 72110

== ENCOUNTER 2023-07-09 09:30 | Emergency (ER) | payer OTHER, SELFPAY ==
[2023-07-09 09:51] VITALS: BP 128/76; PULSE 80; RESP 16; TEMP 36.8; O2SAT 96; BMI 28.3
--- NOTE | 2023-07-09 10:05 | ED.GENADULT ---
HPI - General Adult General Chief complaint: Abdominal Pain Stated complaint: Diverticulitis flare up Time Seen by Provider: 07/09/23 10:03 Source: patient Mode of arrival: Ambulatory History of Present Illness HPI narrative: Patient is a 42-year-old male. Has had multiple episodes of diverticulitis in the past. All requiring oral antibiotics. Last episode was several months ago. Is scheduled for colonoscopy. Has never had surgery before. Is here for evaluation of approximately 5 days of abdominal pain that feels very similar to his history of diverticulitis. Some nausea and vomiting. Does have some dysuria but he states this is normal for him when he gets the discomfort. He does having small amounts of nonbloody stool. No fevers. Related Data Previous Rx's Medication Instructions Recorded cyclobenzaprine 10 mg tablet 10 mg PO BEDTIME PRN muscle spasm 04/06/23 #20 tabs hydrocodone 5 mg-acetaminophen 325 1 tab PO QID PRN pain #20 tabs 04/06/23 mg tablet amoxicillin 875 mg-potassium 1 tab PO BID 10 days #20 tabs 07/09/23 clavulanate 125 mg tablet ondansetron 4 mg disintegrating 4 mg PO Q6H PRN nausea and 07/09/23 tablet vomiting #14 tabs Allergies Allergy/AdvReac Type Severity Reaction Status Date / Time No Known Drug Allergies Allergy Verified 04/25/23 12:43 Review of Systems Review of Systems Narrative: See HPI Patient History Medical History Low back strain History of gout History of kidney stones History of diverticulitis Family History Father Cancer Uncle Diabetes mellitus Grandfather Congestive heart failure Social History household members: spouse Smoking Status: Current every day smoker Tobacco: How many years used: 18 quit status: considering quitting (I would like to talk to Celina about starting Chanitix if it is an option.) second hand exposure: Yes ('a little bit) alcohol intake: current substance use type: marijuana (I smoke marijuana every day. ) Smoking Status: Current every day smoker tobacco type: cigarettes and vaping alcohol intake frequency: a few times a week Alcohol type: beer Substance Use Type: marijuana Exam Initial Vital Signs Initial Vital Signs: Vital Signs Temperature 98.3 F 07/09/23 09:51 Pulse Rate 80 07/09/23 09:51 Respiratory Rate 16 07/09/23 09:51 Blood Pressure 128/76 07/09/23 09:51 Pulse Oximetry 96 07/09/23 09:51 Oxygen Delivery Method Room Air 07/09/23 09:51 Resp Effort & Inspection: normal respiratory effort Cardio Rate: regular rate GI Inspection: normal to inspection and non-distended Palpation: soft, No firm, No guarding and tender (The sudden abdomen) Skin General: no rashes or lesions noted Neuro General: patient alert, patient awake and moves all extremities Course Orders Ordered: ED Orders 07/09/23 09:51 Complete Blood Count AUTO DIFF Stat Comprehensive Metabolic Panel Stat Lipase Stat Ondansetron HCl (Ondansetron 4 Mg Odt) 4 mg PO NOW PRN PRN Reason: Nausea And Vomiting Ondansetron HCl (Ondansetron 4 Mg/2 Ml Inj) 4 mg IV NOW PRN PRN Reason: Nausea And Vomiting Discontinued Medications Amoxicillin/Clavulanate Potassium (Amoxicillin/Clav 875/125 Mg) 1 tab PO NOW ONE Stop: 07/09/23 10:04 Last Admin: 07/09/23 10:06 Dose: 1 tab Documented By: MICHAEL Vital Signs Vital signs: Vital Signs - 8 hr 07/09/23 09:51 Temperature 98.3 F Pulse Rate 80 Respiratory Rate 16 Blood Pressure 128/76 Pulse Oximetry 96 Oxygen Delivery Method Room Air Medical Decision Making [facility] Narrative Medical decision making narrative: Patient has a longstanding history of diverticulitis although he has never had surgery. Has never been admitted to the hospital. All of his prior episodes have gotten better with antibiotics. He comes today stating this feels just like his prior episodes of diverticulitis. I had a discussion with him regarding options. We discussed obtaining a CT scan to 1. Confirm the diagnosis and also 2. to confirm that there are no other complications such as perforation than abscesses. We discussed the risks and benefits of this. In order to avoid multiple CT scanning patient opted to hold on any CT scanning for now. He was able to tolerate a dose of antibiotics here and also water. He does have a relatively benign exam. Will discharge patient home with medications. He understands that if his symptoms worsen that he needs to return to the emergency department. He was also going to contact the providers who are going to do his colonoscopy to let them know about his visit with us today. Discharge Plan Departure Patient Disposition: Home Clinical Impression: Diverticulitis, Abdominal pain Instructions: DI for Diverticulitis Activity Restrictions/Additional Instructions: I do recommend a bland diet. Take the antibiotics as directed and the nausea medication as needed. I do recommend you contact the individuals who are going to do your colonoscopy to let them know about your visit with us today. Return to the emergency department for new or worsening symptoms. Prescriptions: New ondansetron 4 mg tablet,disintegrating 4 mg PO Q6H PRN (Reason: nausea and vomiting) Qty: 14 0RF amoxicillin-pot clavulanate 875-125 mg tablet 1 tab PO BID 10 Days Qty: 20 0RF No Action cyclobenzaprine 10 mg tablet 10 mg PO BEDTIME PRN (Reason: muscle spasm) Qty: 20 1RF hydrocodone-acetaminophen 5-325 mg tablet 1 tab PO QID PRN (Reason: pain) Qty: 20 0RF Referrals: Neri Hernandez, [Primary Care Provider] - Stand Alone Forms: Patient Portal/API
[2023-07-09] MEDS: AMOXICILLIN/CLAV 875/125 MG 1 TAB PO (10:06)
[2023-07-09 10:52] VITALS: BP 128/76; PULSE 71; RESP 19; O2SAT 96
[2023-07-09 10:56] VITALS: BP 121/81; TEMP 36.7
--- NOTE | 2023-07-09 10:57 | PC.NURSE ---
PO challenge passed during ER stay. stated to hold on labwork.
== END 2023-07-09 10:57 | disposition home or self-care (01) ==
PROVIDERS: Emergency Provider Emergency Medicine; PCP Family Medicine
DX: K57.92 Diverticulitis of intestine, part unspecified, without perforation or abscess without bleeding (principal)
CPT/HCPCS: 99283

== ENCOUNTER 2023-07-12 18:35 | Inpatient (IN) | payer OTHER, SELFPAY ==
[2023-07-12] VITALS (9 sets, daily range): BP systolic 120–134; BP diastolic 61–82; PULSE 62–87; RESP 18; TEMP 36.8–37.7; O2SAT 93–99; BMI 28.3
--- NOTE | 2023-07-12 18:56 | PC.NURSE ---
EKG order removed at patient doesnt meet protocol <50 years old
[2023-07-12 19:07] LABS: Appearance Urine UA CLEAR; Bilirubin Urine UA 1+ (NEGATIVE); Color Urine UA YELLOW; Glucose Urine UA NEGATIVE (Negative); Ketones Urine UA 1+ (NEGATIVE); Leukocyte Esterase Urine UA NEGATIVE (NEGATIVE); Nitrite Urine UA NEGATIVE (Negative); Occult Blood Urine UA NEGATIVE (Negative); Protein Urine UA 1+ (Negative); Specific Gravity Urine UA 1.015 (1.000-1.035)
[2023-07-12 19:18] LABS: Bacteria Urine Few (2-10); Ictotest Urine Positive (Negative); Mucus Urine 1+ (Negative); RBC Urine 0-1/HPF (0-5/HPF); Squamous Epithelial Cell Urine None Seen (0-5/HPF); Urine Volume 10mL (spun); WBC Urine 0-1/HPF (0-5/HPF)
[2023-07-12 19:19] LABS: Culture Indicated Urine Cult Not Indicated
[2023-07-12 19:19] LABS: Alanine Aminotransferase 51 IU/L (<50); Albumin 4.5 g/dL (3.5-5.0); Albumin Globulin Ratio 1.3 (1.0-2.8); Alkaline Phosphatase 114 U/L (38-126); Aspartate Aminotransferase 34 IU/L (17-59); BUN Creatinine Ratio 12.6 (6-22); Bilirubin Total 1.1 mg/dL (0.2-1.3); Blood Urea Nitrogen 11 mg/dL (9-20); Calcium 9.7 mg/dL (8.4-10.2); Carbon Dioxide 26 mmol/L (22-32); Chloride 102 mmol/L (98-107); Estimated Glomerular Filt Rate > 60 mL/min (>60); Globulin 3.6 g/dL (1.7-4.1); Glucose 104 mg/dL (70-100); HEMOLYSIS < 15 (0-50); Lipase 39 U/L (23-300); Potassium 4.1 mmol/L (3.4-5.1); Sodium 135 mmol/L (137-145); Total Protein 8.1 g/dL (6.3-8.2)
[2023-07-12 19:26] LABS: Add Manual Diff / Slide Review NO; Basophils Absolute Auto 100 /uL (0-100); Basophils Percent Auto 0.4 % (0-2); Eosinophils Absolute Auto 100 /uL (0-450); Eosinophils Percent Auto 0.6 % (2-4); Hematocrit 42.5 % (41-53); Hemoglobin 14.6 g/dL (13.5-17.5); Lymphocytes Absolute Auto 1200 /uL (1100-4500); Lymphocytes Percent Auto 6.7 % (25-40); Mean Corpuscular HGB Conc 34.4 % (30-36); Mean Corpuscular Hemoglobin 30.8 PG (26-34); Mean Corpuscular Volume 89.4 fL (80-100); Monocytes Absolute Auto 2100 /uL (0-900); Monocytes Percent Auto 11.8 % (3-14); Neutrophils Absolute Auto 13900 /uL (1500-7000); Neutrophils Percent Auto 80.5 % (50-75); Platelet Count 343 X10^3/uL (150-400); Red Blood Cell Count 4.76 X10^6/uL (4.5-5.9); Red Cell Distribution Width 12.9 % (11.6-14.8); White Blood Cell Count 17.3 X10^3/uL (4.5-11.0)
[2023-07-12] MEDS: MORPHINE 4 MG/ML INJ IV (20:35)
--- NOTE | 2023-07-12 20:52 | DI.CT.S_ITS ---
PROCEDURE: CT ABDOMEN PELVIS W CON INDICATIONS: abd pain, hematuria TECHNIQUE: After the administration of intravenous contrast, axial sections acquired from the lung bases to the pubic symphysis. Coronal and sagittal reformats were performed. For radiation dose reduction, the following was used: automated exposure control, adjustment of mA and/or kV according to patient size. COMPARISON: [facility], CT, CT ABDOMEN PELVIS W CON, 03/27/2023, 9:54. FINDINGS: Image quality: Diagnostic. Lower Chest: No significant findings. ABDOMEN: Liver: No solid mass. Steatosis. Gallbladder: No radiopaque gallstones or wall thickening. Biliary ducts: No biliary dilation. Pancreas: No ductal dilation. Spleen: Size is within normal limits. Adrenal Glands: No adrenal nodules. Kidneys and Ureters: No hydronephrosis. No solid mass. No complex renal cystic lesion which requires follow up. Punctate nonobstructing right renal calculus. Stomach and Bowel: No bowel obstruction. There is significant thickening within the descending and transverse colon there is significant surrounding pericolonic inflammatory changes well as diverticula. There is a 3.0 x 1.6 cm focus of low attenuation along the wall of the sigmoid colon. Minimal fluid-filled prominence of more proximal small bowel loops. Peritoneum: No abnormal intraperitoneal fluid. No free air. Ventral Wall: No significant ventral hernia. Abdominal Nodes: No retroperitoneal or mesenteric adenopathy by size criteria. Vessels: Aorta and inferior vena cava are normal in size. PELVIS: Pelvic Organs: Unremarkable. Bladder: No bladder wall thickening, accounting for underdistention. Pelvic Nodes: No enlarged lymph nodes. Miscellaneous: No inguinal hernias are seen. Bones: No aggressive osseous abnormality. IMPRESSION: Prominent descending and sigmoid colonic wall thickening with inflammatory change most consistent with colitis secondary to diverticulitis. Low attenuation adjacent to the sigmoid wall suggestive of developing diverticular abscess. Mild scattered fluid-filled proximal small bowel loops suggestive of ileus. Dictated by: Elsy Peralta M.D. on 07/12/2023 at 21:32 Approved by: Elsy Peralta M.D. on 07/12/2023 at 21:36
--- NOTE | 2023-07-12 20:59 | ED_ITS ---
HPI - Abdominal Pain General Chief Complaint: Abdominal Pain Stated Complaint: here Thurs diverticulitis vomitting pain chills Time Seen by Provider: 07/12/23 20:23 Source: patient Mode of arrival: Ambulatory History of Present Illness HPI narrative: 42-year-old male with history of diverticulitis presents by private vehicle from home for abdominal pain, nausea, vomiting. Seen here on 07/08 for same and discharged with a prescription of Augmentin. Patient states that he has been taking his antibiotics as prescribed but he feels worse and his pain is causing him to vomit. Related Data Previous Rx's Medication Instructions Recorded cyclobenzaprine 10 mg tablet 10 mg PO BEDTIME PRN muscle spasm 04/06/23 #20 tabs hydrocodone 5 mg-acetaminophen 325 1 tab PO QID PRN pain #20 tabs 04/06/23 mg tablet amoxicillin 875 mg-potassium 1 tab PO BID 10 days #20 tabs 07/09/23 clavulanate 125 mg tablet ondansetron 4 mg disintegrating 4 mg PO Q6H PRN nausea and 07/09/23 tablet vomiting #14 tabs Allergies Allergy/AdvReac Type Severity Reaction Status Date / Time No Known Drug Allergies Allergy Verified 07/12/23 18:47 Review of Systems Review of Systems Narrative: See HPI Patient History Medical History Low back strain History of gout History of kidney stones History of diverticulitis Family History Father Cancer Uncle Diabetes mellitus Grandfather Congestive heart failure Social History household members: spouse Smoking Status: Current every day smoker Tobacco: How many years used: 18 quit status: considering quitting (I would like to talk to Celina about starting Chanitix if it is an option.) second hand exposure: Yes ('a little bit) alcohol intake: current substance use type: marijuana (I smoke marijuana every day. ) Smoking Status: Current every day smoker tobacco type: cigarettes and vaping alcohol intake frequency: a few times a week Alcohol type: beer Substance Use Type: marijuana Exam Initial Vital Signs Initial Vital Signs: Vital Signs Temperature 99.9 F H 07/12/23 18:40 Pulse Rate 87 07/12/23 18:40 Respiratory Rate 18 07/12/23 18:40 Blood Pressure 129/82 07/12/23 18:40 Pulse Oximetry 99 07/12/23 18:40 Oxygen Delivery Method Room Air 07/12/23 18:40 Const: Awake, alert, in pain, uncomfortable Cardiac: regular rate, regular rhythm RESP: unlabored, clear bilaterally, no wheezing GI: Soft, generalized tenderness to deep palpation Skin: Warm, Dry, intact, no rashes Neuro: AO x3, CN II-XII grossly intact, moves all extremities Course Orders Ordered: ED Orders 07/12/23 18:50 Complete Blood Count AUTO DIFF Stat Comprehensive Metabolic Panel Stat Lipase Stat 07/12/23 18:55 Ictotest Urine Stat Urinalysis and Microscopic Stat 07/12/23 20:52 CT abdomen pelvis w con Stat Acetaminophen (Acetaminophen 325 Mg Tablet) 650 mg PO Q6H PRN PRN Reason: Fever/Mild Pain (1-3) Hydrocodone Bitart/Acetaminophen (Hydrocodone/Acet 5/325 Tablet) 1 tab PO Q4H PRN PRN Reason: Pain, Moderate (4-6) Last Admin: 07/13/23 00:49 Dose: 1 tab Documented By: SB Calcium Carbonate (Calcium Carbonate 500 Mg Tab) 1,000 mg PO Q4HR PRN PRN Reason: Dyspepsia Hydromorphone HCl (Hydromorphone 0.5 Mg Inj) 0.5 mg IV Q3H PRN PRN Reason: Pain, Severe (7-10) Dextrose/Sodium Chloride (Dextrose 5%-0.9% Ns) 1,000 mls @ 100 mls/hr IV CONT VANESSA Last Admin: 07/13/23 00:42 Dose: 100 mls/hr Documented By: [facility] Piperacillin Sod/Tazobactam (Sod 3.375 gm/ Sodium Chloride) 100 mls @ 25 mls/hr IV Q8H [facility] Naloxone HCl (Naloxone 0.4 Mg/Ml Vial) 0.2 mg IV Q2MIN PRN PRN Reason: Opiate Reversal Ondansetron HCl (Ondansetron 4 Mg Odt) 4 mg PO NOW PRN PRN Reason: Nausea And Vomiting Ondansetron HCl (Ondansetron 4 Mg/2 Ml Inj) 4 mg IV NOW PRN PRN Reason: Nausea And Vomiting Ondansetron HCl (Ondansetron 4 Mg/2 Ml Inj) 4 mg IV Q8HR PRN PRN Reason: Nausea And Vomiting Pantoprazole Sodium (Pantoprazole Dr 20 Mg Tablet) 20 mg PO 0600 [facility] Promethazine HCl (Promethazine 12.5 Mg Supp) 12.5 mg UT Q6HR PRN PRN Reason: Nausea And Vomiting Sennosides (Sennosides 8.6 Mg Tablet) 17.2 mg PO BEDTIME [facility] Last Admin: 07/13/23 00:46 Dose: Not Given Documented By: [facility] Sodium Chloride (Sodium Chloride 0.9% Flush) 10 ml IV BID [facility] Last Admin: 07/12/23 21:49 Dose: Not Given Documented By: [facility] Sodium Chloride (Sodium Chloride 0.9% Flush) 10 ml IV PRN PRN PRN Reason: Flush Sodium Chloride (Sodium Chloride 0.9% Flush) 10 ml IV BID [facility] Last Admin: 07/12/23 21:49 Dose: Not Given Documented By: [facility] Sodium Chloride (Sodium Chloride 0.9% Flush) 10 ml IV PRN PRN PRN Reason: Flush Discontinued Medications Hydromorphone HCl (Hydromorphone 1 Mg Inj) 1 mg IM NOW ONE Stop: 07/12/23 21:32 Last Admin: 07/12/23 21:39 Dose: 1 mg Documented By: [facility] Sodium Chloride (Normal Saline 0.9%) 1,000 mls @ 1,000 mls/hr IV BOLUS ONE Stop: 07/12/23 21:30 Last Infusion: 07/13/23 00:44 Dose: Infused Documented By: Admin: 07/12/23 21:39 Dose: 1,000 mls/hr Documented By: [facility] Piperacillin Sod/Tazobactam (Sod 4.5 gm/ Sodium Chloride) 100 mls @ 200 mls/hr IV NOW ONE Stop: 07/12/23 21:49 Last Infusion: 07/12/23 22:38 Dose: Infused Documented By: [facility] Admin: 07/12/23 21:56 Dose: 200 mls/hr Documented By: [facility] Morphine Sulfate (Morphine 4 Mg/Ml Inj) 4 mg IV NOW ONE Stop: 07/12/23 20:32 Last Admin: 07/12/23 20:35 Dose: 4 mg Documented By: [facility] Vital Signs Vital signs: Vital Signs - 8 hr 07/12/23 18:40 07/12/23 20:18 07/12/23 20:25 Temperature 99.9 F H 98.2 F Pulse Rate 87 86 Respiratory Rate 18 Blood Pressure 129/82 Pulse Oximetry 99 99 Oxygen Delivery Method Room Air 07/12/23 20:30 07/12/23 21:00 07/12/23 21:43 Temperature Pulse Rate 74 69 69 Respiratory Rate Blood Pressure Pulse Oximetry 98 95 98 Oxygen Delivery Method 07/12/23 21:44 07/12/23 21:44 07/12/23 22:00 Temperature Pulse Rate 73 Respiratory Rate Blood Pressure 134/76 121/72 Pulse Oximetry 98 Oxygen Delivery Method 07/12/23 22:00 Temperature Pulse Rate 62 Respiratory Rate Blood Pressure Pulse Oximetry 93 Oxygen Delivery Method MDM - Abdominal Pain Lab Data 07/12/23 18:50 07/12/23 18:50 Labs: Lab Results 07/12/23 07/12/23 Range/Units 18:50 18:55 WBC 17.3 H (4.5-11.0) X10^3/uL RBC 4.76 (4.5-5.9) X10^6/uL Hgb 14.6 (13.5-17.5) g/dL Hct 42.5 (41-53) % MCV 89.4 (80-100) fL MCH 30.8 (26-34) PG MCHC 34.4 (30-36) % RDW 12.9 (11.6-14.8) % Plt Count 343 (150-400) X10^3/uL Neut % (Auto) 80.5 H (50-75) % Lymph % (Auto) 6.7 L (25-40) % [place] % (Auto) 11.8 (3-14) % Eos % (Auto) 0.6 L (2-4) % Baso % (Auto) 0.4 (0-2) % Neut # (Auto) 90196 H (2351-9522) /uL Lymph # (Auto) 1200 (2898-7111) /uL [place] # (Auto) 2100 H (0-900) /uL Eos # (Auto) 100 (0-450) /uL Baso # (Auto) 100 (0-100) /uL Sodium 135 L (137-145) mmol/L Potassium 4.1 (3.4-5.1) mmol/L Chloride 102 (98-107) mmol/L Carbon Dioxide 26 (22-32) mmol/L BUN 11 (9-20) mg/dL Creatinine 0.87 (0.66-1.25) mg/dL Estimated GFR > 60 (>60) mL/min BUN/Creatinine Ratio 12.6 (6-22) Glucose 104 H (70-100) mg/dL Calcium 9.7 (8.4-10.2) mg/dL Total Bilirubin 1.1 (0.2-1.3) mg/dL AST 34 (17-59) IU/L ALT 51 H (<50) IU/L Alkaline Phosphatase 114 (38-126) U/L Total Protein 8.1 (6.3-8.2) g/dL Albumin 4.5 (3.5-5.0) g/dL Globulin 3.6 (1.7-4.1) g/dL Albumin/Globulin Ratio 1.3 (1.0-2.8) Lipase 39 (23-300) U/L Urine Color Yellow Urine Appearance Clear Urine pH 7.0 (4.5-8.0) Ur Specific [place] 1.015 (1.000-1.035) Urine Protein 1+ H (Negative) Urine Glucose (UA) Negative (Negative) g/dL Urine Ketones 1+ H (NEGATIVE) Urine Occult Blood Negative (Negative) Urine Nitrate Negative (Negative) Urine Bilirubin 1+ H (NEGATIVE) Ur Bilirubin Confirm Positive H (Negative) Urine Urobilinogen 1.0 (0.2) E.U./dL Ur Leukocyte Esterase Negative (NEGATIVE) Urine RBC 0-1/hpf (0-5/HPF) Urine WBC 0-1/hpf (0-5/HPF) Ur Squamous Epith Cells None seen (0-5/HPF) Urine Bacteria Few (2-10) H (None) Urine Mucus 1+ H (Negative) Urine Yeast 0-1/hpf (None) Ur Culture Indicated? Cult not indicated Vol Urine Centrifuged 10ml (spun) Imaging Data CT scan - abdomen/pelvis: Radiologist's Impression: PROCEDURE: CT ABDOMEN PELVIS W CON INDICATIONS: abd pain, hematuria TECHNIQUE: After the administration of intravenous contrast, axial sections acquired from the lung bases to the pubic symphysis. Coronal and sagittal reformats were performed. For radiation dose reduction, the following was used: automated exposure control, adjustment of mA and/or kV according to patient size. COMPARISON: [facility], CT, CT ABDOMEN PELVIS W CON, 03/27/2023, 9:54. FINDINGS: Image quality: Diagnostic. Lower Chest: No significant findings. ABDOMEN: Liver: No solid mass. Steatosis. Gallbladder: No radiopaque gallstones or wall thickening. Biliary ducts: No biliary dilation. Pancreas: No ductal dilation. Spleen: Size is within normal limits. Adrenal Glands: No adrenal nodules. Kidneys and Ureters: No hydronephrosis. No solid mass. No complex renal cystic lesion which requires follow up. Punctate nonobstructing right renal calculus. Stomach and Bowel: No bowel obstruction. There is significant thickening within the descending and transverse colon there is significant surrounding pericolonic inflammatory changes well as diverticula. There is a 3.0 x 1.6 cm focus of low attenuation along the wall of the sigmoid colon. Minimal fluid-filled prominence of more proximal small bowel loops. Peritoneum: No abnormal intraperitoneal fluid. No free air. Ventral Wall: No significant ventral hernia. Abdominal Nodes: No retroperitoneal or mesenteric adenopathy by size criteria. Vessels: Aorta and inferior vena cava are normal in size. PELVIS: Pelvic Organs: Unremarkable. Bladder: No bladder wall thickening, accounting for underdistention. Pelvic Nodes: No enlarged lymph nodes. Miscellaneous: No inguinal hernias are seen. Bones: No aggressive osseous abnormality. IMPRESSION: Prominent descending and sigmoid colonic wall thickening with inflammatory change most consistent with colitis secondary to diverticulitis. Low attenuation adjacent to the sigmoid wall suggestive of developing diverticular abscess. Mild scattered fluid-filled proximal small bowel loops suggestive of ileus. Dictated by: Elsy Peralta M.D. on 07/12/2023 at 21:32 Approved by: Elsy Peralta M.D. on 07/12/2023 at 21:36 MDM Narrative Medical decision making narrative: Very uncomfortable appearing patient presenting for worsening abdominal pain despite 3 days of antibiotics. Patient verbally stated that he was taking azithromycin, however record review shows that he was discharged on Augmentin, which is appropriate therapy for diverticulitis. Since this is a repeat visit with worsening symptoms even though a CT was deferred last time due to multiple previous scans I feel that a repeat CT scan at this time is appropriate. Pain, nausea medications, IV fluids ordered. Laboratory work significant for leukocytosis with WBC count 17.3, hemoglobin 14.6, platelets 343, sodium 135, potassium 4.1, creatinine 0.87, normal liver enzymes. CT of the abdomen and pelvis shows extensive diverticulitis with findings concerning for evolving abscess near the sigmoid. Patient continuing to complain of significant pain requiring numerous doses of IV pain medications. Given patient's leukocytosis, worsening symptoms despite being on appropriate antibiotics, as well as poorly-controlled pain plan to admit patient to the hospital for further treatment. Discharge Plan Departure Patient Disposition: Admitted As Inpatient Clinical Impression: Diverticulitis Admit Date/Time: 07/12/23 22:09 Admit Provider: Robbin Ruiz
[2023-07-12] MEDS: HYDROMORPHONE 1 MG INJ IM (21:39)
[2023-07-12] MEDS: SODIUM CHLORIDE 0.9% 1,000 ML 1000 ML IV (21:39)
[2023-07-12] MEDS: PIPERACILLIN/TAZO 4.5 GM in SODIUM CHLORIDE 0.9% 100 ML IV (21:56)
[2023-07-13] VITALS (31 sets, daily range): BP systolic 100–133; BP diastolic 56–76; PULSE 55–77; RESP 16–22; TEMP 35.9–36.8; O2SAT 94–100; BMI 28.3; BMI 26.6
[2023-07-13] MEDS: DEXTROSE 5%-0.9% NS 1,000 ML 100 ML IV ×3 (00:42→19:53)
--- NOTE | 2023-07-13 00:46 | PC.NURSE ---
Assisted with Tele Provider at bedside. Lungs clear bilaterally. S1, S2 no murmur NSR
[2023-07-13] MEDS: HYDROCODONE/ACET 5/325 TABLET 1 TAB PO ×3 (00:49→09:47)
--- NOTE | 2023-07-13 00:58 | P.HP_ITS ---
History of Present Illness History of Present Illness Date Patient Seen: 07/13/23 Time Patient Seen: 00:58 Chief complaint: here Thurs diverticulitis vomitting pain chills Narrative: The pt is a 42 yo male who has been having 2-3 episodes of diverticulitis over the past 6 year and for the past one week he has been having bilateral lower quadrant pain, constant, sharp crampy abdominal pain. He also reports that he had loose stools to start with but now is having small hard stools but also chills, no fevers, body aches, and daily vomiting. His last colonoscopy was 6-12 months ago and was referred to a surgeon but has not follow through with the appointment. The pt came to our ER 3 days ago and was given Augmentin but the pain was worse so he came back to the ER tonight. [facility] Medical History Low back strain History of gout History of kidney stones History of diverticulitis Family History Father Cancer Uncle Diabetes mellitus Grandfather Congestive heart failure Social History household members: spouse Smoking Status: Current every day smoker Tobacco: How many years used: 18 quit status: considering quitting (I would like to talk to Celina about starting Chanitix if it is an option.) second hand exposure: Yes ('a little bit) alcohol intake: current substance use type: marijuana (I smoke marijuana every day. ) Meds Home Medications and Allergies Home Medications Medication Instructions Recorded Confirmed Type cyclobenzaprine 10 mg tablet 10 mg PO BEDTIME PRN muscle spasm 04/06/23 04/06/23 Rx #20 tabs hydrocodone 5 mg-acetaminophen 325 1 tab PO QID PRN pain #20 tabs 04/06/23 04/06/23 Rx mg tablet amoxicillin 875 mg-potassium 1 tab PO BID 10 days #20 tabs 07/09/23 Rx clavulanate 125 mg tablet ondansetron 4 mg disintegrating 4 mg PO Q6H PRN nausea and 07/09/23 Rx tablet vomiting #14 tabs Allergies Allergy/AdvReac Type Severity Reaction Status Date / Time No Known Drug Allergies Allergy Verified 07/12/23 18:47 Exam Vital Signs (past 8 hours): - 07/12/23 18:40 07/12/23 20:18 07/12/23 20:25 Temperature 99.9 F H 98.2 F Pulse Rate 87 86 Respiratory Rate 18 Blood Pressure 129/82 Pulse Oximetry 99 99 Oxygen Delivery Method Room Air 07/12/23 20:30 07/12/23 21:00 07/12/23 21:43 Temperature Pulse Rate 74 69 69 Respiratory Rate Blood Pressure Pulse Oximetry 98 95 98 Oxygen Delivery Method 07/12/23 21:44 07/12/23 21:44 07/12/23 22:00 Temperature Pulse Rate 73 Respiratory Rate Blood Pressure 134/76 121/72 Pulse Oximetry 98 Oxygen Delivery Method 07/12/23 22:00 07/12/23 22:30 07/12/23 22:30 Temperature Pulse Rate 62 63 Respiratory Rate Blood Pressure 120/61 Pulse Oximetry 93 97 Oxygen Delivery Method Oxygen Delivery Method Room Air Const General: healthy appearing and comfortable Resp Auscultation: clear to auscultation bilaterally Cardio Rate: regular rate Rhythm: regular rhythm GI Palpation: guarding and tender Extrem General: no clubbing, cyanosis or edema Objective Labs 07/12/23 18:50 07/12/23 18:50 Labs: Laboratory Results - last 24 hr 07/12/23 07/12/23 18:50 18:55 WBC 17.3 H RBC 4.76 Hgb 14.6 Hct 42.5 MCV 89.4 MCH 30.8 MCHC 34.4 RDW 12.9 Plt Count 343 Neut % (Auto) 80.5 H Lymph % (Auto) 6.7 L [place] % (Auto) 11.8 Eos % (Auto) 0.6 L Baso % (Auto) 0.4 Neut # (Auto) 68897 H Lymph # (Auto) 1200 [place] # (Auto) 2100 H Eos # (Auto) 100 Baso # (Auto) 100 Sodium 135 L Potassium 4.1 Chloride 102 Carbon Dioxide 26 BUN 11 Creatinine 0.87 Estimated GFR > 60 BUN/Creatinine Ratio 12.6 Glucose 104 H Calcium 9.7 Total Bilirubin 1.1 AST 34 ALT 51 H Alkaline Phosphatase 114 Total Protein 8.1 Albumin 4.5 Globulin 3.6 Albumin/Globulin Ratio 1.3 Lipase 39 Urine Color Yellow Urine Appearance Clear Urine pH 7.0 Ur Specific [place] 1.015 Urine Protein 1+ H Urine Glucose (UA) Negative Urine Ketones 1+ H Urine Occult Blood Negative Urine Nitrate Negative Urine Bilirubin 1+ H Ur Bilirubin Confirm Positive H Urine Urobilinogen 1.0 Ur Leukocyte Esterase Negative Urine RBC 0-1/hpf Urine WBC 0-1/hpf Ur Squamous Epith Cells None seen Urine Bacteria Few (2-10) H Urine Mucus 1+ H Urine Yeast 0-1/hpf Ur Culture Indicated? Cult not indicated Vol Urine Centrifuged 10ml (spun) Assessment & Plan Assessment and plan (1) Diverticulitis: Status: Acute (2) History of kidney stones: Status: Chronic Plan I spoke with the ER provider regarding the pt's presenting symptoms and labs and agree with the decision for admission. We will start the pt on zosyn 4mg IV Q8, PRN pain meds, antiemetics, IVFluids, labs reviewed showing WBC of 17, normal hgb, LFT's normal, CT abd reviewed showing significant inflammation around the colon. repeating labs in am .
[2023-07-13] MEDS: PIPERACILLIN/TAZO 3.375 GM in SODIUM CHLORIDE 0.9% 100 ML IV ×3 (02:23→17:43)
[2023-07-13] MEDS: HYDROMORPHONE 0.5 MG INJ IV ×3 (03:22→10:35)
[2023-07-13 05:24] LABS: Add Manual Diff / Slide Review NO; Basophils Absolute Auto 100 /uL (0-100); Basophils Percent Auto 0.4 % (0-2); Eosinophils Absolute Auto 200 /uL (0-450); Eosinophils Percent Auto 1.1 % (2-4); Hematocrit 40.8 % (41-53); Hemoglobin 13.8 g/dL (13.5-17.5); Lymphocytes Absolute Auto 1400 /uL (1100-4500); Lymphocytes Percent Auto 7.3 % (25-40); Mean Corpuscular HGB Conc 33.7 % (30-36); Mean Corpuscular Hemoglobin 30.5 PG (26-34); Mean Corpuscular Volume 90.3 fL (80-100); Monocytes Absolute Auto 2500 /uL (0-900); Monocytes Percent Auto 13.3 % (3-14); Neutrophils Absolute Auto 14700 /uL (1500-7000); Neutrophils Percent Auto 77.9 % (50-75); Platelet Count 288 X10^3/uL (150-400); Red Blood Cell Count 4.52 X10^6/uL (4.5-5.9); Red Cell Distribution Width 12.9 % (11.6-14.8); White Blood Cell Count 18.8 X10^3/uL (4.5-11.0)
[2023-07-13 05:35] LABS: BUN Creatinine Ratio 11.9 (6-22); Blood Urea Nitrogen 10 mg/dL (9-20); Calcium 8.7 mg/dL (8.4-10.2); Carbon Dioxide 23 mmol/L (22-32); Chloride 106 mmol/L (98-107); Estimated Glomerular Filt Rate > 60 mL/min (>60); Glucose 118 mg/dL (70-100); HEMOLYSIS < 15 (0-50); Potassium 3.8 mmol/L (3.4-5.1); Sodium 137 mmol/L (137-145)
[2023-07-13] MEDS: PANTOPRAZOLE DR 20 MG TABLET PO (05:56)
[2023-07-13] MEDS: SODIUM CHLORIDE 0.9% FLUSH 10 ML IV ×2 (06:58→09:50)
--- NOTE | 2023-07-13 08:34 | PM.PN.1 ---
Subjective Subjective Interval history: From night doctor: The pt is a 42 yo male who has been having 2-3 episodes of diverticulitis over the past 6 year and for the past one week he has been having bilateral lower quadrant pain, constant, sharp crampy abdominal pain. He also reports that he had loose stools to start with but now is having small hard stools but also chills, no fevers, body aches, and daily vomiting. His last colonoscopy was 6-12 months ago and was referred to a surgeon but has not follow through with the appointment. The pt came to our ER 3 days ago and was given Augmentin but the pain was worse so he came back to the ER tonight. Updated info: He describes at least 4 episodes of diverticulitis a year for several years. He also describes fragmented follow up and breakthrough of referrals to specialists. He currently has a pending referral and appointment with Gastroenterology for a colonoscopy at [facility]. The patient has had 1 colonoscopy in the past which revealed diverticulosis. Our CT scan indicates possible colitis and diverticulitis. He denies any history of colitis. He also denies any history in the family of inflammatory bowel disease. He did have 1 small episode of diarrhea yesterday. No fevers or chills. His pain he is in the left lower quadrant. He has Flatus and denies nausea or vomiting. Exam Vital Signs (past 8 hours): - 07/13/23 00:49 07/13/23 01:02 07/13/23 01:54 Temperature Pulse Rate 60 69 65 Respiratory Rate 22 Blood Pressure Pulse Oximetry 99 99 96 Oxygen Delivery Method Oxygen Flow Rate 07/13/23 01:55 07/13/23 01:55 07/13/23 01:58 Temperature Pulse Rate 73 55 L Respiratory Rate 18 Blood Pressure 111/65 111/65 Pulse Oximetry 96 96 Oxygen Delivery Method Room Air Oxygen Flow Rate 07/13/23 03:25 07/13/23 03:26 07/13/23 03:34 Temperature 97.7 F Pulse Rate 71 67 Respiratory Rate 17 Blood Pressure 123/61 Pulse Oximetry 100 97 Oxygen Delivery Method Room Air Oxygen Flow Rate 0 07/13/23 04:00 07/13/23 04:30 07/13/23 05:00 Temperature Pulse Rate Respiratory Rate Blood Pressure 124/72 118/70 126/61 Pulse Oximetry Oxygen Delivery Method Oxygen Flow Rate 07/13/23 05:30 07/13/23 06:01 07/13/23 06:30 Temperature Pulse Rate Respiratory Rate Blood Pressure 115/61 132/68 114/57 L Pulse Oximetry Oxygen Delivery Method Oxygen Flow Rate 07/13/23 07:01 07/13/23 08:00 Temperature 96.6 F L Pulse Rate 70 Respiratory Rate 16 Blood Pressure 112/69 109/61 Pulse Oximetry 97 Oxygen Delivery Method Oxygen Flow Rate 0 Oxygen Delivery Method Room Air Oxygen Flow Rate 0 Narrative Exam Narrative: Moderate distress due to pain, alert and oriented. Fluent speech. Lungs are clear, normal rate and effort. Heart is regular, no murmur gallop or rub. Abdomen is flat, he was hyperactive bowel tones and positive left lower quadrant tenderness without guarding or rebound. Extremities are free of edema. Objective Imaging CT scan - abdomen: Radiologist's impression: IMPRESSION: Prominent descending and sigmoid colonic wall thickening with inflammatory change most consistent with colitis secondary to diverticulitis. Low attenuation adjacent to the sigmoid wall suggestive of developing diverticular abscess. Mild scattered fluid-filled proximal small bowel loops suggestive of ileus. Labs 07/13/23 04:15 07/13/23 04:15 Labs: Laboratory Results - last 24 hr 07/12/23 07/12/23 07/13/23 18:50 18:55 04:15 WBC 17.3 H 18.8 H RBC 4.76 4.52 Hgb 14.6 13.8 Hct 42.5 40.8 L MCV 89.4 90.3 MCH 30.8 30.5 MCHC 34.4 33.7 RDW 12.9 12.9 Plt Count 343 288 Neut % (Auto) 80.5 H 77.9 H Lymph % (Auto) 6.7 L 7.3 L [place] % (Auto) 11.8 13.3 Eos % (Auto) 0.6 L 1.1 L Baso % (Auto) 0.4 0.4 Neut # (Auto) 00181 H 40237 H Lymph # (Auto) 1200 1400 [place] # (Auto) 2100 H 2500 H Eos # (Auto) 100 200 Baso # (Auto) 100 100 Sodium 135 L 137 Potassium 4.1 3.8 Chloride 102 106 Carbon Dioxide 26 23 BUN 11 10 Creatinine 0.87 0.84 Estimated GFR > 60 > 60 BUN/Creatinine Ratio 12.6 11.9 Glucose 104 H 118 H Calcium 9.7 8.7 Total Bilirubin 1.1 AST 34 ALT 51 H Alkaline Phosphatase 114 Total Protein 8.1 Albumin 4.5 Globulin 3.6 Albumin/Globulin Ratio 1.3 Lipase 39 Urine Color Yellow Urine Appearance Clear Urine pH 7.0 Ur Specific [place] 1.015 Urine Protein 1+ H Urine Glucose (UA) Negative Urine Ketones 1+ H Urine Occult Blood Negative Urine Nitrate Negative Urine Bilirubin 1+ H Ur Bilirubin Confirm Positive H Urine Urobilinogen 1.0 Ur Leukocyte Esterase Negative Urine RBC 0-1/hpf Urine WBC 0-1/hpf Ur Squamous Epith Cells None seen Urine Bacteria Few (2-10) H Urine Mucus 1+ H Urine Yeast 0-1/hpf Ur Culture Indicated? Cult not indicated Vol Urine Centrifuged 10ml (spun) [facility] Medical History Low back strain History of gout History of kidney stones History of diverticulitis Family History Father Cancer Uncle Diabetes mellitus Grandfather Congestive heart failure Social History household members: spouse and children Smoking Status: Current every day smoker Tobacco: How many years used: 18 quit status: considering quitting (I would like to talk to Celina about starting Chanitix if it is an option.) second hand exposure: Yes ('a little bit) alcohol intake: current substance use type: marijuana (I smoke marijuana every day. ) Assessment & Plan Assessment & Plan narrative: 1. Acute diverticulitis and possible colitis, present on admission and active. 2. Remote nephrolithiasis, not present on admission are active. PLAN: - Continue IV antibiotics and monitored clinical course. - Out of bed, encourage activity. - Stool PCR to rule out inflammatory colitis. - We will electronically message with Gastroenterology at [facility] to confirm a plan with them for colonoscopy and timing of these appointments as well as encourage a referral to General surgery at [facility]. He sounds as though he may be appropriate for consideration of a limited colon resection for recurrent diverticulitis. Estimated date of discharge is 1-2 days, likely July 14. Quality VTE Deep Vein Thrombosis/Pulmonary Embolism Present on Admission: No
[2023-07-13] MEDS: HYDROMORPHONE 0.5 MG INJ 1 MG IV ×4 (12:30→22:41)
--- NOTE | 2023-07-13 14:31 | CM.DANOTE ---
DCP Assessment Note Pt is a 42yo M here following diverticulitis. PMH of 2-3 episodes of diverticulitis over last 6 years. Was d/c'd from the ED 07/09/23 on PO abx for the same concerns and returned 07/12/23 with worsening pain. PCP Dr. David KHAN and self pay INSTRUMENTATION MANAGER reviewed EMR. Per hospitalist in morning rounds, plan is to continue IV abx and continue to coordinate with gastroenterology at [facility] that pt was already coordinating with. Per hospitalist, est dc for July 14. INSTRUMENTATION MANAGER met with pt in room. Pt lives in [place] with spouse Yasmin ([phone]). Pt reports being indep with ADLs and has good supports at home with spouse. Denies any CM needs. reports feeling exhausted and wanting to rest. Plan: anticipate home with spouse support 07/14 or when medically stable. No identified barriers to safe dc home. CM team will continue to follow as needed. YAW Hernandez Discharge Planning/Care Management CM Discharge Assessment Start: 07/13/23 14:29 Freq: Status: Active Protocol: Document 07/13/23 14:30 (Rec: 07/13/23 14:31 [id number]) Discharge Planning Assessment Assigned Machine Maintenance Supervisor YAW Mcgee DPOA/Assigned Designee Name paul Hoffman Contact Information [phone] Advance Directives? No History Provided By Patient Prior Living Arrangements House Household Members spouse,children Type of transporation used prior to Drives own vehicle admit Independent with ADL's Yes Is patient alert and oriented? Yes Barriers to Discharge No Discharge Plan Home Transportation Arrangement family in [place] Referrals Initiated None needed Whiteboard Updated in Patient Room with Yes name and ext. # of Machine Maintenance Supervisor Review Status In Process Please Provide Date Initial DC 07/13/23 Assessment Was Performed Next Review Type Continued Stay Review
[2023-07-13] MEDS: HYDROCODONE/ACET 5/325 TABLET 2 TAB PO ×2 (14:57→23:32)
--- NOTE | 2023-07-13 16:19 | PC.NURSE ---
In am around 1015, spoke with provider regarding multiple concerns from RN, patient, and patient spouse. RN brought up pain control, abdominal CT results (which included possible ileus) and pt history of previous umbilical hernia repair, hyperactive bowel tones and firm lower abdomen, and the possibility of a surgery consult. Provider acknowledged concerns.
[2023-07-13] MEDS: SENNOSIDES 8.6 MG TABLET 17.2 MG PO (21:07)
[2023-07-14] VITALS (10 sets, daily range): BP systolic 109–154; BP diastolic 27–78; PULSE 60–84; RESP 16–19; TEMP 36.1–37.4; O2SAT 95–99
[2023-07-14] MEDS: HYDROMORPHONE 0.5 MG INJ 1 MG IV ×2 (02:05→04:32)
[2023-07-14] MEDS: PIPERACILLIN/TAZO 3.375 GM in SODIUM CHLORIDE 0.9% 100 ML IV ×3 (02:05→18:12)
[2023-07-14] MEDS: HYDROCODONE/ACET 5/325 TABLET 2 TAB PO ×5 (06:07→23:36)
[2023-07-14] MEDS: PANTOPRAZOLE DR 20 MG TABLET PO (06:07)
[2023-07-14] MEDS: DEXTROSE 5%-0.9% NS 1,000 ML 100 ML IV ×2 (06:07→15:31)
--- NOTE | 2023-07-14 07:14 | PC.NURSE ---
pt has required multiple doses of both po and iv pain meds this shift for abd pain; he has not had any nausea; he has not had a bowel movement, so stool specimen collection is still pending
[2023-07-14] MEDS: HYDROMORPHONE 1 MG INJ IV ×4 (08:42→18:05)
[2023-07-14] MEDS: SODIUM CHLORIDE 0.9% FLUSH 10 ML IV ×2 (08:44→12:58)
--- NOTE | 2023-07-14 10:17 | CM.DPNOTE ---
DCP Note FREEZING MACHINE OPERATOR reviewed EMR. Per hospitalist in morning multidisciplinary rounds, unclear dc timeline. Per RN overnight note, pt required po and IV pain meds for abdominal pain. no BM. Medical POC continues to unfold. CM team will follow closely. anticipate home with spouse support when medically stable. No identified barriers to safe dc home. YAW Hernandez
[2023-07-14] MEDS: NICOTINE 21 MG PATCH TOP (12:06)
--- NOTE | 2023-07-14 15:06 | P.PN_ITS ---
Subjective Subjective Date Patient Seen: 07/14/23 Interval history: Pt notes slight improvement in LLQ abd pain. Still no appetite. No sig BM for over a week. Exam Vital Signs (past 8 hours): - 07/14/23 08:00 07/14/23 08:00 07/14/23 12:00 Temperature 97.6 F 97.0 F L Pulse Rate 75 80 Respiratory Rate 16 18 Blood Pressure 116/69 124/75 Pulse Oximetry 99 98 Oxygen Delivery Method Room Air Oxygen Flow Rate 0 0 Oxygen Delivery Method Room Air Oxygen Flow Rate 0 Narrative Exam Narrative: Gen: alert, NAD Abd: tender, guarding LLQ Ext: no edema Objective Labs 07/13/23 04:15 07/13/23 04:15 [facility] Medical History Low back strain History of gout History of kidney stones History of diverticulitis Family History Father Cancer Uncle Diabetes mellitus Grandfather Congestive heart failure Social History household members: spouse and children Smoking Status: Current every day smoker Tobacco: How many years used: 18 quit status: considering quitting (I would like to talk to Celina about starting Chanitix if it is an option.) second hand exposure: Yes ('a little bit) alcohol intake: current substance use type: marijuana (I smoke marijuana every day. ) Assessment & Plan Assessment & Plan narrative: 1. Acute diverticulitis and possible colitis, present on admission and active. 2. Possible developing sigmoid abscess on CT 3. Constipation 4. Remote nephrolithiasis, not present on admission are active. 5. Cig dependency PLAN: - Continue IV antibiotics and monitored clinical course. - Out of bed, encourage activity. - Miralax daily - Has outpatient c-scope scheduled at [facility] on July 23 - Repeat CT to check abscess if not improving in next couple days - Nicotine patch - Lovenox for DVT prevention Quality VTE Deep Vein Thrombosis/Pulmonary Embolism Present on Admission: No
[2023-07-14] MEDS: polyethylene glycoL 3350 17 GM POWD.PACK PO (16:17)
[2023-07-14] MEDS: ONDANSETRON 4 MG/2 ML INJ IV (19:52)
[2023-07-15 00:08] VITALS: BP 128/78; PULSE 82; RESP 19; TEMP 36.8; O2SAT 98
[2023-07-15] MEDS: HYDROMORPHONE 1 MG INJ IV ×2 (01:16→07:39)
[2023-07-15] MEDS: PIPERACILLIN/TAZO 3.375 GM in SODIUM CHLORIDE 0.9% 100 ML IV ×3 (01:49→18:04)
[2023-07-15] MEDS: DEXTROSE 5%-0.9% NS 1,000 ML 100 ML IV (02:38)
[2023-07-15] MEDS: HYDROCODONE/ACET 5/325 TABLET 2 TAB PO (03:58)
--- NOTE | 2023-07-15 07:40 | PM.PN.1 ---
Subjective Subjective Interval history: Feeling somewhat better, still has waves of pain. Is able to make jokes. No fevers or chills. No diarrhea. Exam Vital Signs (past 8 hours): - 07/15/23 00:08 Temperature 98.2 F Pulse Rate 82 Respiratory Rate 19 Blood Pressure 128/78 Pulse Oximetry 98 Oxygen Flow Rate 0 Oxygen Delivery Method Room Air Oxygen Flow Rate 0 Narrative Exam Narrative: NAD, alert and oriented. Fluent speech. Lungs are clear, normal rate and effort. Heart is regular, no murmur gallop or rub. Abdomen is soft, non distended. Mild left lower quadrant tenderness without rebound. Extremities are free of edema. Objective Labs 07/13/23 04:15 07/13/23 04:15 [facility] Medical History Low back strain History of gout History of kidney stones History of diverticulitis Family History Father Cancer Uncle Diabetes mellitus Grandfather Congestive heart failure Social History household members: spouse and children Smoking Status: Current every day smoker Tobacco: How many years used: 18 quit status: considering quitting (I would like to talk to Celina about starting Chanitix if it is an option.) second hand exposure: Yes ('a little bit) alcohol intake: current substance use type: marijuana (I smoke marijuana every day. ) Assessment & Plan Assessment & Plan narrative: 1. Acute diverticulitis and possible colitis, present on admission and active. 2. Possible developing sigmoid abscess on CT, present on admission and active. 3. Constipation, present on admission and active. 4. Remote nephrolithiasis, not present on admission are active. 5. Cig dependency, present on admission and active. PLAN: - Continue IV antibiotics and monitored clinical course. - Out of bed, encourage activity. - Miralax daily - Has outpatient c-scope scheduled at [facility] on July 23 - Nicotine patch - Lovenox for DVT prevention -change oral pain med to oxycodone, possible discharge home later today if his pain is well controlled. Would continue oral antibiotics. I am arranging follow up with GI at [facility] a little sooner, Dr. Cooper. Quality VTE Deep Vein Thrombosis/Pulmonary Embolism Present on Admission: No
[2023-07-15] MEDS: SODIUM CHLORIDE 0.9% FLUSH 10 ML IV ×3 (07:42→20:14)
[2023-07-15 08:00] VITALS: BP 119/75; PULSE 64; RESP 18; TEMP 36.4; O2SAT 99
[2023-07-15] MEDS: polyethylene glycoL 3350 17 GM POWD.PACK PO (08:39)
[2023-07-15] MEDS: NICOTINE 21 MG PATCH TOP (08:40)
[2023-07-15] MEDS: ENOXAPARIN 40 MG/0.4 ML SYRINGE SUBCUT (08:40)
[2023-07-15] MEDS: OXYCODONE IR 10 MG TABLET PO ×5 (09:51→23:51)
[2023-07-15] MEDS: ONDANSETRON 4 MG/2 ML INJ IV (09:52)
[2023-07-15] MEDS: ACETAMINOPHEN 325 MG TABLET 650 MG PO (12:21)
--- NOTE | 2023-07-15 12:44 | CM.DPNOTE ---
DCP Cont Reviewed chart. Patient discussed in multidisciplinary rounds. Acute diverticulitis and possible colitis, if pain improved today likely to be discharged home with family w/close outpatient follow up. CM team following closely in case any discharge needs or concerns arise. JW
--- NOTE | 2023-07-15 14:56 | PM.DS.1 ---
History of Present Illness History of Present Illness Chief complaint: here Thurs diverticulitis vomitting pain chills Discharge Providers Provider Date of admission: 07/12/23 22:09 Primary care physician: Neri Hernandez DO Discharge provider: Edwar Trujillo MD Exam Vital Signs (past 8 hours): - 07/15/23 08:00 Temperature 97.6 F Pulse Rate 64 Respiratory Rate 18 Blood Pressure 119/75 Pulse Oximetry 99 Oxygen Flow Rate 0 Oxygen Delivery Method Room Air Oxygen Flow Rate 0 Objective Labs 07/13/23 04:15 07/13/23 04:15 [facility] Medical History Low back strain History of gout History of kidney stones History of diverticulitis Family History Father Cancer Uncle Diabetes mellitus Grandfather Congestive heart failure Social History household members: spouse and children Smoking Status: Current every day smoker Tobacco: How many years used: 18 quit status: considering quitting (I would like to talk to Celina about starting Chanitix if it is an option.) second hand exposure: Yes ('a little bit) alcohol intake: current substance use type: marijuana (I smoke marijuana every day. ) Discharge Plan Discharge Plan Patient Disposition: Home Provider Discharge Comment: Stable for discharge home, he was close follow up with Gastroenterology at [facility]. This is with Dr. Cooper, with whom I have communicated about his current situation. Discharge orders & Medications Prescriptions: New oxycodone 10 mg Tablet 10 mg PO Q3HR PRN (Reason: Pain, Severe (7-10)) Qty: 20 0RF Continued cyclobenzaprine 10 mg tablet 10 mg PO BEDTIME PRN (Reason: muscle spasm) Qty: 20 1RF Patient Comments: No longer taking medication ondansetron 4 mg tablet,disintegrating 4 mg PO Q6H PRN (Reason: nausea and vomiting) Qty: 14 0RF amoxicillin-pot clavulanate 875-125 mg tablet 1 tab PO BID 10 Days Qty: 20 0RF Discontinued hydrocodone-acetaminophen 5-325 mg tablet 1 tab PO QID PRN (Reason: pain) Qty: 20 0RF Patient Comments: no longer taking medication Medication counseling provided by Pharmacist: No Follow up/Referrals: Neri Hernandez, [Primary Care Provider] - Diet/Activity/Treatments Diet: Diet as Tolerated Skin/Wound/Dressing Care Report to your healthcare provider any signs of infection, such as:: chills, fever and increased pain Visit Report/Discharge Packet Instructions: DI for Diverticulitis Stand Alone Forms: Patient Portal/API Discharge Data Primary Care Provider: Neri Hernandez Quality VTE Deep Vein Thrombosis/Pulmonary Embolism Present on Admission: No
--- NOTE | 2023-07-15 15:06 | P.DS_ITS ---
History of Present Illness History of Present Illness Chief complaint: here Thurs diverticulitis vomitting pain chills Narrative: The pt is a 42 yo male who has been having 2-3 episodes of diverticulitis over the past 6 year and for the past one week he has been having bilateral lower quadrant pain, constant, sharp crampy abdominal pain. He also reports that he had loose stools to start with but now is having small hard stools but also chills, no fevers, body aches, and daily vomiting. His last colonoscopy was 6-12 months ago and was referred to a surgeon but has not follow through with the appointment. The pt came to our ER 3 days ago and was given Augmentin but the pain was worse so he came back to the ER tonight. Discharge Providers Provider Date of admission: 07/12/23 22:09 Discharge Date: 07/15/23 Primary care physician: Neri Hernandez DO Consults: None. Communicated with Dr. Cooper at at [facility], gastroenterology. He has a pending appointment with her for colonoscopy. Discharge provider: Edwar Trujillo MD Summary Hospital Course Discharge Diagnosis: 1. Acute diverticulitis and possible colitis, present on admission and improved. 2. Possible developing sigmoid abscess on CT, present on admission and improved. 3. Constipation, present on admission and resolved. 4. Remote nephrolithiasis, not present on admission are active. 5. Cigarette dependency, present on admission and active. Hospital Course: The patient was admitted with diverticulitis. He has a history of recurrent diverticulitis. CT imaging was consistent with possible colitis and diverticulitis. He initially had a fair amount of pain as well as leukocytosis. He was treated with IV antibiotics and pain medication since. Over the next 48 hours he improved substantially was able to convert to oral pain medications only. He was stable for discharge on oral medications including Augmentin b.i.d. as well as oxycodone as needed. He is scheduled for colonoscopy July [address] [facility]. I did send electronic message to his GI doctor there, mentioning the possibility of a surgical referral given his numerous episodes of recurrent diverticulitis. He was constipated and with help of a bowel program had a good bowel movement on the day of discharge prior to discharge. Status at Discharge Cognitive/behavioral status at discharge: oriented Functional status at discharge: independent ambulation Overall status at discharge: patient is back to baseline Time Spent with Patient Time spent: Greater than 30 minutes Exam Vital Signs (past 8 hours): - 07/15/23 08:00 Temperature 97.6 F Pulse Rate 64 Respiratory Rate 18 Blood Pressure 119/75 Pulse Oximetry 99 Oxygen Flow Rate 0 Oxygen Delivery Method Room Air Oxygen Flow Rate 0 Narrative Exam Narrative: NAD, alert and oriented. Fluent speech. Lungs are clear, normal rate and effort. Heart is regular, no murmur gallop or rub. Abdomen is soft, non distended. Extremities are free of edema. Objective Imaging CT scan - abdomen: Radiologist's impression: CT scan - abdomen: Radiologist's impression: IMPRESSION: Prominent descending and sigmoid colonic wall thickening with inflammatory change most consistent with colitis secondary to diverticulitis. Low attenuation adjacent to the sigmoid wall suggestive of developing diverticular abscess. Mild scattered fluid-filled proximal small bowel loops suggestive of ileus. Labs 07/13/23 04:15 07/13/23 04:15 [facility] Medical History Low back strain History of gout History of kidney stones History of diverticulitis Family History Father Cancer Uncle Diabetes mellitus Grandfather Congestive heart failure Social History household members: spouse and children Smoking Status: Current every day smoker Tobacco: How many years used: 18 quit status: considering quitting (I would like to talk to Celina about starting Chanitix if it is an option.) second hand exposure: Yes ('a little bit) alcohol intake: current substance use type: marijuana (I smoke marijuana every day. ) Discharge Assessment & Plan Assessment and Plan Assessment: 1. Acute diverticulitis and possible colitis, present on admission and improved. 2. Possible developing sigmoid abscess on CT, present on admission and improved. 3. Constipation, present on admission and resolved. 4. Remote nephrolithiasis, not present on admission are active. 5. Cigarette dependency, present on admission and active. Plan of Treatment: He will discharge with the Augmentin b.i.d., as well as oxycodone as needed pain 20. He will follow up with visualization developer scheduled at [facility]. He knows to come back for increased pain, fevers, chills, or vomiting. Discharge Plan Discharge Plan Patient Disposition: Home Provider Discharge Comment: Stable for discharge home, he was close follow up with Gastroenterology at [facility]. This is with Dr. Cooper, with whom I have communicated about his current situation. Discharge orders & Medications Prescriptions: New oxycodone 10 mg Tablet 10 mg PO Q3HR PRN (Reason: Pain, Severe (7-10)) Qty: 20 0RF Continued cyclobenzaprine 10 mg tablet 10 mg PO BEDTIME PRN (Reason: muscle spasm) Qty: 20 1RF Patient Comments: No longer taking medication ondansetron 4 mg tablet,disintegrating 4 mg PO Q6H PRN (Reason: nausea and vomiting) Qty: 14 0RF amoxicillin-pot clavulanate 875-125 mg tablet 1 tab PO BID 10 Days Qty: 20 0RF Discontinued hydrocodone-acetaminophen 5-325 mg tablet 1 tab PO QID PRN (Reason: pain) Qty: 20 0RF Patient Comments: no longer taking medication Medication counseling provided by Pharmacist: No Follow up/Referrals: Neri Hernandez DO [Primary Care Provider] - Diet/Activity/Treatments Diet: Diet as Tolerated Skin/Wound/Dressing Care Report to your healthcare provider any signs of infection, such as:: chills, fever and increased pain Visit Report/Discharge Packet Instructions: DI for Diverticulitis Stand Alone Forms: Patient Portal/API Discharge Data Primary Care Provider: Neri Hernandez Quality VTE Deep Vein Thrombosis/Pulmonary Embolism Present on Admission: No
[2023-07-15 15:07] LABS: Add Manual Diff / Slide Review NO; Basophils Absolute Auto 0 /uL (0-100); Basophils Percent Auto 0.1 % (0-2); Eosinophils Absolute Auto 100 /uL (0-450); Eosinophils Percent Auto 0.5 % (2-4); Hematocrit 39.5 % (41-53); Hemoglobin 13.6 g/dL (13.5-17.5); Lymphocytes Absolute Auto 1300 /uL (1100-4500); Lymphocytes Percent Auto 5.6 % (25-40); Mean Corpuscular HGB Conc 34.3 % (30-36); Mean Corpuscular Hemoglobin 30.3 PG (26-34); Mean Corpuscular Volume 88.4 fL (80-100); Monocytes Absolute Auto 2700 /uL (0-900); Monocytes Percent Auto 11.6 % (3-14); Neutrophils Absolute Auto 18800 /uL (1500-7000); Neutrophils Percent Auto 82.2 % (50-75); Platelet Count 397 X10^3/uL (150-400); Red Blood Cell Count 4.47 X10^6/uL (4.5-5.9); Red Cell Distribution Width 13.2 % (11.6-14.8); White Blood Cell Count 22.9 X10^3/uL (4.5-11.0)
[2023-07-15 15:19] LABS: BUN Creatinine Ratio 4.9 (6-22); Blood Urea Nitrogen 4 mg/dL (9-20); Carbon Dioxide 25 mmol/L (22-32); Chloride 102 mmol/L (98-107); Estimated Glomerular Filt Rate > 60 mL/min (>60); Glucose 93 mg/dL (70-100); HEMOLYSIS < 15 (0-50); Potassium 3.9 mmol/L (3.4-5.1); Sodium 136 mmol/L (137-145)
--- NOTE | 2023-07-15 16:06 | DI.CT.S_ITS ---
PROCEDURE: CT ABDOMEN PELVIS W CON INDICATIONS: Diverticulitis TECHNIQUE: After the administration of intravenous contrast, axial sections acquired from the lung bases to the pubic symphysis. Coronal and sagittal reformats were performed. For radiation dose reduction, the following was used: automated exposure control, adjustment of mA and/or kV according to patient size. COMPARISON: [facility], CT, CT ABDOMEN PELVIS W CON, 07/12/2023, 21:02. FINDINGS: Image quality: Diagnostic. Lower Chest: Mild dependent atelectasis. ABDOMEN: Liver: No solid mass. Gallbladder: Possible gallbladder sludge. No radiopaque gallstones or wall thickening. Biliary ducts: No biliary dilation. Pancreas: No ductal dilation. Spleen: Size is within normal limits. Adrenal Glands: No adrenal nodules. Kidneys and Ureters: No hydronephrosis. No solid mass. No complex renal cystic lesion which requires follow up. Punctate nonobstructing right renal calcifications Stomach and Bowel: Again seen sigmoid diverticulitis. Increased size of pericolonic abscess now measuring approximately 6.6 x 1.7 x 4.7 cm (AP by TV by cc). Peritoneum: Mesenteric edema and small volume free fluid is likely reactive from diverticulitis.. No free air. Ventral Wall: No significant ventral hernia. Abdominal Nodes: No retroperitoneal or mesenteric adenopathy by size criteria. Vessels: Aorta and inferior vena cava are normal in size. PELVIS: Pelvic Organs: Unremarkable. Bladder: No bladder wall thickening, accounting for underdistention. Pelvic Nodes: No enlarged lymph nodes. Miscellaneous: No inguinal hernias are seen. Bones: No aggressive osseous abnormality. IMPRESSION: Redemonstration of findings consistent with sigmoid diverticulitis. Increased size of adjacent abscess as described above. Dictated by: Donn Jason M.D. on 07/15/2023 at 16:56 Approved by: Donn Jason M.D. on 07/15/2023 at 17:00
[2023-07-15] MEDS: ONDANSETRON 4 MG ODT PO (17:05)
--- NOTE | 2023-07-15 17:56 | PM.PN.1 ---
Subjective Subjective Interval history: He is feeling better and was going to discharge. Repeated his CBC in his white count was up to 20. Repeated a CT which reveals a larger more organized abscess. We will keep him here tonight on IV antibiotics and discuss with Interventional Radiology at [facility] between now and tomorrow morning. Also reviewed scans with Dr. Riddle of General surgery. Exam Vital Signs (past 8 hours): Oxygen Delivery Method Room Air Oxygen Flow Rate 0 Narrative Exam Narrative: NAD, alert and oriented. Fluent speech. Lungs are clear, normal rate and effort. Heart is regular, no murmur gallop or rub. Abdomen is soft, non distended. Extremities are free of edema. Objective Labs 07/15/23 15:02 07/15/23 15:02 Labs: Laboratory Results - last 24 hr 07/15/23 15:02 WBC 22.9 H RBC 4.47 L Hgb 13.6 Hct 39.5 L MCV 88.4 MCH 30.3 MCHC 34.3 RDW 13.2 Plt Count 397 Neut % (Auto) 82.2 H Lymph % (Auto) 5.6 L [place] % (Auto) 11.6 Eos % (Auto) 0.5 L Baso % (Auto) 0.1 Neut # (Auto) 59133 H Lymph # (Auto) 1300 [place] # (Auto) 2700 H Eos # (Auto) 100 Baso # (Auto) 0 Sodium 136 L Potassium 3.9 Chloride 102 Carbon Dioxide 25 BUN 4 L Creatinine 0.82 Estimated GFR > 60 BUN/Creatinine Ratio 4.9 L Glucose 93 Calcium 9.0 [facility] Medical History Low back strain History of gout History of kidney stones History of diverticulitis Family History Father Cancer Uncle Diabetes mellitus Grandfather Congestive heart failure Social History household members: spouse and children Smoking Status: Current every day smoker Tobacco: How many years used: 18 quit status: considering quitting (I would like to talk to Celina about starting Chanitix if it is an option.) second hand exposure: Yes ('a little bit) alcohol intake: current substance use type: marijuana (I smoke marijuana every day. ) Assessment & Plan Assessment & Plan narrative: 1. Diverticulitis with a more organized abscess in the sigmoid colon, present on admission and active. -cancel discharge -continue IV antibiotics -discuss with Interventional Radiology Quality VTE Deep Vein Thrombosis/Pulmonary Embolism Present on Admission: No
[2023-07-15 20:13] VITALS: BP 118/74; PULSE 63; RESP 19; TEMP 37.3; O2SAT 99
[2023-07-15 21:09] LABS: Adenovirus F 40/41 Not Detected (Not Detect); Astrovirus Not Detected (Not Detect); Campylobacter Not Detected (Not Detect); Clostridium difficile toxin AB Not Detected (Not Detect); Cryptosporidium Not Detected (Not Detect); Cyclospora cayetanensis Not Detected (Not Detect); Entamoeba histolytica Not Detected (Not Detect); Enteroaggregative E.coli Not Detected (Not Detect); Enteropathogenic E.coli Not Detected (Not Detect); Enterotoxigenic E.coli It/st Not Detected (Not Detect); Giardia lamblia Not Detected (Not Detect); Norovirus GI/GII Not Detected (Not Detect); Plesiomonsa shigelloides Not Detected (Not Detect); Rotavirus A Not Detected (Not Detect); Salmonella Not Detected (Not Detect); Sapovirus Not Detected (Not Detect); Shiga-like toxin-prod E.coli Not Detected (Not Detect); Shigella/Enteroinvasive E.coli Not Detected (Not Detect); Vibrio Not Detected (Not Detect); Vibrio cholerae Not Detected (Not Detect); Yersinia enterocolitica Not Detected (Not Detect)
[2023-07-16] MEDS: PIPERACILLIN/TAZO 3.375 GM in SODIUM CHLORIDE 0.9% 100 ML IV ×3 (02:09→17:48)
[2023-07-16] MEDS: OXYCODONE IR 10 MG TABLET PO ×5 (03:06→21:39)
[2023-07-16] MEDS: ACETAMINOPHEN 325 MG TABLET 650 MG PO ×2 (03:06→21:40)
[2023-07-16] MEDS: ONDANSETRON 4 MG/2 ML INJ IV ×2 (06:12→17:50)
[2023-07-16 08:00] VITALS: BP 118/75; PULSE 68; RESP 16; TEMP 36.5; O2SAT 99
--- NOTE | 2023-07-16 08:10 | PM.PN.1 ---
Subjective Subjective Interval history: He is doing better today. Less pain. No fevers overnight. Yesterday as white count was elevated and a repeat CT indicated a localized abscess from his sigmoid diverticulitis. I spoke with Dr. Riddle who recommended seeing if Interventional Radiology would or could drain this. I did speak with interventional at [facility], the abscess is too small and there is not a good window without hitting blood vessels. I requested a formal consult from Dr. Riddle today. Exam Vital Signs (past 8 hours): Oxygen Delivery Method Room Air Oxygen Flow Rate 0 Narrative Exam Narrative: NAD, alert and oriented. Fluent speech. Lungs are clear, normal rate and effort. Heart is regular, no murmur gallop or rub. Abdomen is soft, non distended. Extremities are free of edema. Objective Labs 07/15/23 15:02 07/15/23 15:02 Labs: Laboratory Results - last 24 hr 07/15/23 07/15/23 14:42 15:02 WBC 22.9 H RBC 4.47 L Hgb 13.6 Hct 39.5 L MCV 88.4 MCH 30.3 MCHC 34.3 RDW 13.2 Plt Count 397 Neut % (Auto) 82.2 H Lymph % (Auto) 5.6 L [place] % (Auto) 11.6 Eos % (Auto) 0.5 L Baso % (Auto) 0.1 Neut # (Auto) 42722 H Lymph # (Auto) 1300 [place] # (Auto) 2700 H Eos # (Auto) 100 Baso # (Auto) 0 Sodium 136 L Potassium 3.9 Chloride 102 Carbon Dioxide 25 BUN 4 L Creatinine 0.82 Estimated GFR > 60 BUN/Creatinine Ratio 4.9 L Glucose 93 Calcium 9.0 Stl C. cayetanensis PCR Not detected Stool Rotavirus (PCR) Not detected Stool Adenovirus (PCR) Not detected Stool Astrovirus (PCR) Not detected Stool Cryptosporidium PCR Not detected Stl E.coli Shiga Tox PCR Not detected St Sh/Enteroin Ecoli PCR Not detected Stl Enterotoxigenic E PCR Not detected Stool EPEC (PCR) Not detected Stl E. histolytica PCR Not detected Stool Giardia Lamblia PCR Not detected Stool Sapovirus (PCR) Not detected Stl P. shigelloides PCR Not detected St Y.enterocolitica PCR Not detected Stool Vibrio (PCR) Not detected Stl Vibrio cholerae PCR Not detected Stl Enteroaggr Ecoli PCR Not detected Stl Norovirus GI/GII PCR Not detected Campylobacter (PCR) Not detected C. difficile Tox (PCR) Not detected Salmonella (PCR) Not detected [facility] Medical History Low back strain History of gout History of kidney stones History of diverticulitis Family History Father Cancer Uncle Diabetes mellitus Grandfather Congestive heart failure Social History household members: spouse and children Smoking Status: Current every day smoker Tobacco: How many years used: 18 quit status: considering quitting (I would like to talk to Celina about starting Chanitix if it is an option.) second hand exposure: Yes ('a little bit) alcohol intake: current substance use type: marijuana (I smoke marijuana every day. ) Assessment & Plan Assessment & Plan narrative: 1. Diverticulitis with a more organized abscess in the sigmoid colon, present on admission and active. -continue IV antibiotics -discussed with Interventional Radiology, not a candidate for percutaneous intervention. The abscess is too small and is not a clear window. -general surgery consult for their recommendations. Discussed with Dr. Riddle on the morning of July 15. Quality VTE Deep Vein Thrombosis/Pulmonary Embolism Present on Admission: No
[2023-07-16] MEDS: polyethylene glycoL 3350 17 GM POWD.PACK PO (08:28)
[2023-07-16] MEDS: ENOXAPARIN 40 MG/0.4 ML SYRINGE SUBCUT (08:28)
[2023-07-16] MEDS: NICOTINE 21 MG PATCH TOP (08:28)
[2023-07-16] MEDS: SODIUM CHLORIDE 0.9% FLUSH 10 ML IV ×2 (08:33→21:41)
--- NOTE | 2023-07-16 10:54 | CM.DPNOTE ---
DCP Cont Reviewed chart. Patient discussed in multidisciplinary rounds. CT showing abd abscess, Interventional Radiology at [facility] consulted and reportedly abscess is too small for them to drain. Dr Trujillo has requested formal consultation from general surgery today. Plan remains discharge home w/family w/close outpatient follow up. CM team following clinical course closely in case any discharge needs or concerns arise. ANJEL
--- NOTE | 2023-07-16 14:11 | PM.CN ---
History of Present Illness Consult details Date Patient Seen: 07/16/23 Time Patient Seen: 14:11 Chief complaint: here Thurs diverticulitis vomitting pain chills Narrative: Keyshawn is a 42-year-old man who has had multiple episodes of diverticulitis over the past 4 or 5 years who presented to the emergency department on 07/11 and was found to have diverticlulitis on CT scan. He was admitted and started on IV antibiotics and seemed to be doing well initially. He was almost ready for discharge home yesterday but his white count was elevated and a repeat CT scan was performed which showed a developing abscess in the pelvis. It was not amenable to percutaneous drainage according to the interventional radiologist at [facility]. Today he reports that he has minimal appetite. He is passing gas and has had some bowel movements. His pain is about the same as it was when he first arrived. Meds Home Medications and Allergies Home Medications Medication Instructions Recorded Confirmed Type cyclobenzaprine 10 mg tablet 10 mg PO BEDTIME PRN muscle spasm 04/06/23 07/13/23 Rx #20 tabs ondansetron 4 mg disintegrating 4 mg PO Q6H PRN nausea and 07/09/23 07/13/23 Rx tablet vomiting #14 tabs amoxicillin 875 mg-potassium 1 tab PO BID 10 days #20 tabs 07/15/23 Rx clavulanate 125 mg tablet oxycodone 10 mg tablet 10 mg PO Q3HR PRN Pain, Severe 07/15/23 Rx (7-10) #20 tabs Allergies Allergy/AdvReac Type Severity Reaction Status Date / Time No Known Drug Allergies Allergy Verified 07/12/23 18:47 Exam Vital Signs (past 8 hours): - 07/16/23 08:00 Temperature 97.7 F Pulse Rate 68 Respiratory Rate 16 Blood Pressure 118/75 Pulse Oximetry 99 Oxygen Flow Rate 0 Oxygen Delivery Method Room Air Oxygen Flow Rate 0 Narrative Exam Narrative: Abdomen tender to palpation in all quadrants but without peritonitis Objective Labs 07/15/23 15:02 07/15/23 15:02 Labs: Laboratory Results - last 24 hr 07/15/23 07/15/23 14:42 15:02 WBC 22.9 H RBC 4.47 L Hgb 13.6 Hct 39.5 L MCV 88.4 MCH 30.3 MCHC 34.3 RDW 13.2 Plt Count 397 Neut % (Auto) 82.2 H Lymph % (Auto) 5.6 L [place] % (Auto) 11.6 Eos % (Auto) 0.5 L Baso % (Auto) 0.1 Neut # (Auto) 90975 H Lymph # (Auto) 1300 [place] # (Auto) 2700 H Eos # (Auto) 100 Baso # (Auto) 0 Sodium 136 L Potassium 3.9 Chloride 102 Carbon Dioxide 25 BUN 4 L Creatinine 0.82 Estimated GFR > 60 BUN/Creatinine Ratio 4.9 L Glucose 93 Calcium 9.0 Stl C. cayetanensis PCR Not detected Stool Rotavirus (PCR) Not detected Stool Adenovirus (PCR) Not detected Stool Astrovirus (PCR) Not detected Stool Cryptosporidium PCR Not detected Stl E.coli Shiga Tox PCR Not detected St Sh/Enteroin Ecoli PCR Not detected Stl Enterotoxigenic E PCR Not detected Stool EPEC (PCR) Not detected Stl E. histolytica PCR Not detected Stool Giardia Lamblia PCR Not detected Stool Sapovirus (PCR) Not detected Stl P. shigelloides PCR Not detected St Y.enterocolitica PCR Not detected Stool Vibrio (PCR) Not detected Stl Vibrio cholerae PCR Not detected Stl Enteroaggr Ecoli PCR Not detected Stl Norovirus GI/GII PCR Not detected Campylobacter (PCR) Not detected C. difficile Tox (PCR) Not detected Salmonella (PCR) Not detected [facility] Medical History Low back strain History of gout History of kidney stones History of diverticulitis Family History Father Cancer Uncle Diabetes mellitus Grandfather Congestive heart failure Social History household members: spouse and children Tobacco & Substance Use Smoking Status: Current every day smoker Tobacco: How many years used: 18 quit status: considering quitting (I would like to talk to Celina about starting Chanitix if it is an option.) second hand exposure: Yes ('a little bit) alcohol intake: current substance use type: marijuana (I smoke marijuana every day. ) Assessment & Plan Assessment and plan (1) Diverticulitis: Status: Acute Plan Given his minimal appetite and ongoing abdominal pain I recommend continuation of IV antibiotics in the hospital. If he improves he may be able to go home on oral antibiotics at some point. If he does not improve after few days I would repeat the CT scan and see if the abscess is more amenable to drainage. If he deteriorates he would need to go to the operating room for a Leslee's procedure with an end colostomy. I discussed the various possibilities with the patient and he is hopeful that he can avoid having a colostomy. He will need to have a colectomy at some point but if it can be done after the inflammation has settled down we would be more likely to avoid a colostomy.
[2023-07-16 20:28] VITALS: BP 124/74; PULSE 71; RESP 17; TEMP 37; O2SAT 97
[2023-07-17] VITALS (11 sets, daily range): BP systolic 126–146; BP diastolic 73–89; PULSE 58–95; RESP 12–24; TEMP 36.3–39.1; O2SAT 68–99; BMI 26.6
--- NOTE | 2023-07-17 | PATH_ITS ---
[facility] Accession Number: [id number] No. of containers..01 Tissue . 01 Material submitted: . colon - SIGMOID COLON . 01 Diagnosis: SIGMOID COLON, SEGMENTAL RESECTION: Sigmoid colon with diverticulosis and marked serositis, consistent with ruptured diverticulitis. Benign polypoid mucosal redundancy. Two benign pericolonic lymph nodes. No evidence of neoplasm. MRV 07/24/2023 1422 Local . 01 Electronically signed: . Lincoln Sauer MD, PhD, Pathologist NPI- [id number] . 01 Gross description: . Received in formalin with two identifiers and sigmoid colon, is an unoriented segment of colon, 17.6 cm in length by 3.4 cm in average diameter with yellow, firm fat covering most of the serosa. The visible serosa is cardona to congested and roughened with adherent material consistent with exudate in an area of possible partial thickness defect measuring 2.3 cm in length. The roughened serosa and possible defect are inked orange, the harpreet are differentially inked blue and black, and the mesenteric margin is inked green. The mucosa is cardona and velvety with normal-appearing folds and an erythematous polypoid lesion measuring 0.4 x 0.4 cm, and is confined to the mucosa. The luminal diameter ranges from 1.3 to 0.5 cm, but remains probe patent. The juárez are diffusely thickened, up to 0.7 cm, with numerous diverticula that measure up to 1.0 cm thick with no grossly identified full thickness perforation. A cardona lymph node candidate is identified measuring 0.4 cm in greatest dimension. Dow[place] Pointer sections are submitted as follows: . A1: Rep margins en face. A2: Polypoid nodule. A3: Area of partial thickness defect. A4-A5: Diverticula. A6: Full thickness unremarkable section. A7: Single bisected lymph node candidate. ([id number]) /MRV 07/21/2023 1348 Local . 01 Pathologist provided ICD-10: K57.21 . 01 CPT . 241391 Specimen Comment: A courtesy copy of this report has been sent to [phone] Performed at: 01 [facility] [address] [place] [address] [address] [facility], [place], [place] [id number] MD Sanjeev Guallpa MD Phone: [phone]
[2023-07-17] MEDS: PIPERACILLIN/TAZO 3.375 GM in SODIUM CHLORIDE 0.9% 100 ML IV ×3 (03:32→21:18)
[2023-07-17] MEDS: ACETAMINOPHEN 325 MG TABLET 650 MG PO (03:34)
[2023-07-17] MEDS: OXYCODONE IR 10 MG TABLET PO (03:34)
[2023-07-17 06:11] LABS: Add Manual Diff / Slide Review NO; Basophils Absolute Auto 100 /uL (0-100); Basophils Percent Auto 0.4 % (0-2); Eosinophils Absolute Auto 200 /uL (0-450); Eosinophils Percent Auto 0.7 % (2-4); Hematocrit 38.5 % (41-53); Hemoglobin 12.9 g/dL (13.5-17.5); Lymphocytes Absolute Auto 1000 /uL (1100-4500); Lymphocytes Percent Auto 4.5 % (25-40); Mean Corpuscular HGB Conc 33.6 % (30-36); Mean Corpuscular Hemoglobin 29.9 PG (26-34); Monocytes Absolute Auto 3600 /uL (0-900); Monocytes Percent Auto 15.6 % (3-14); Neutrophils Absolute Auto 18200 /uL (1500-7000); Neutrophils Percent Auto 78.8 % (50-75); Platelet Count 413 X10^3/uL (150-400); Red Blood Cell Count 4.32 X10^6/uL (4.5-5.9); Red Cell Distribution Width 13.4 % (11.6-14.8); White Blood Cell Count 23.1 X10^3/uL (4.5-11.0)
[2023-07-17] MEDS: ENOXAPARIN 40 MG/0.4 ML SYRINGE SUBCUT (07:58)
[2023-07-17] MEDS: NICOTINE 21 MG PATCH TOP (07:58)
[2023-07-17] MEDS: polyethylene glycoL 3350 17 GM POWD.PACK PO (07:59)
[2023-07-17] MEDS: HYDROMORPHONE 1 MG INJ IV ×4 (09:43→20:51)
--- NOTE | 2023-07-17 10:28 | CM.DPC ---
DCP Cont: Per MD, Surgeon Consult yesterday recommended ongoing conservative tx with IV-Abx but pt's white count continued to rise and pt now here 5 nights with increased medical needs. Surgeon Consult today and pt NPO for likely surgical intervention later today to address his increasing abscess. Plan: SW to follow closely tomorrow after surgical intervention to confirm pt still safe for discharge home with spouse and any further identified discharge planning needs. YAW Solorio
--- NOTE | 2023-07-17 12:30 | DIET.CONS ---
Dietary Consultation Note Admission Date: 07/12/2023 22:09 Assessment: 42 y M admitted for diverticulitis. Nutrition screened for LOS 5. Pt NPO or clear liquid diet for 5 days. Per healthcare team rounds this morning, pt NPO today and likely to have surgical intervention for abscess. Ht: 165.1 cm Wt: 72.575 kg BMI: 26.6 UBW: 72.575-74.843 kg in last 4 months per chart Last BM: 07/16/23 (07/16/23 20:28) MNA: 12 Haim Score: 20 Diet: 07/17/23 09:39 NPO Diet Diet Modifications: May Advance Diet as Tolerated: No Safety Tray needed?: No NPO Type: NPO NOW for Procedure Nutrition Percent Meal Consumed 25% 07/16/23 15:55 Percent Meal Consumed 50% 07/16/23 08:47 Labs: RBC 4.32 X10^6/uL (4.5-5.9) L 07/17/23 05:49 Hgb 12.9 g/dL (13.5-17.5) L 07/17/23 05:49 Hct 38.5 % (41-53) L 07/17/23 05:49 Creatinine 0.82 mg/dL (0.66-1.25) 07/15/23 15:02 Nutrition Diagnosis: Inadequate oral intake r/t altercations in GI tract as evidenced by NPO or clear liquid diet for 5 days Interventions: 1. If unable to advance diet by Thursday, consider starting TPN. 2. Coordinated with unit host/kitchen for appropriate nutrition when diet is advanced. EER: [id number] kcals (25-27 kcals/kg per BMI) 60-70 g PRO (.8-1.0 g/kg) Monitoring/Evaluations: diet advancement Electronically Signed by: Kristen Romero 07/17/23 12:30 Clinical Dietitian [address] [id number]
--- NOTE | 2023-07-17 14:13 | P.PN_ITS ---
Subjective Subjective Interval history: Patient still having LLQ pain. WBC increased to 23 today. Gen surg to take for surgery later today to remove abscess and likely colectomy. Exam Vital Signs (past 8 hours): - 07/17/23 09:00 Temperature 97.8 F Pulse Rate 58 L Respiratory Rate 16 Blood Pressure 129/73 Pulse Oximetry 99 Oxygen Delivery Method Room Air Oxygen Flow Rate 0 Narrative Exam Narrative: NAD, alert and oriented. Fluent speech. Lungs are clear, normal rate and effort. Heart is regular, no murmur gallop or rub. Abdomen is soft, non distended. LLQ tenderness. Extremities are free of edema. Objective Labs 07/17/23 05:49 07/15/23 15:02 Labs: Laboratory Results - last 24 hr 07/17/23 05:49 WBC 23.1 H RBC 4.32 L Hgb 12.9 L Hct 38.5 L MCV 89.0 MCH 29.9 MCHC 33.6 RDW 13.4 Plt Count 413 H Neut % (Auto) 78.8 H Lymph % (Auto) 4.5 L [place] % (Auto) 15.6 H Eos % (Auto) 0.7 L Baso % (Auto) 0.4 Neut # (Auto) 18463 H Lymph # (Auto) 1000 L [place] # (Auto) 3600 H Eos # (Auto) 200 Baso # (Auto) 100 PFSH Medical History Low back strain History of gout History of kidney stones History of diverticulitis Family History Father Cancer Uncle Diabetes mellitus Grandfather Congestive heart failure Social History household members: spouse and children Smoking Status: Current every day smoker Tobacco: How many years used: 18 quit status: considering quitting (I would like to talk to Celina about starting Chanitix if it is an option.) second hand exposure: Yes ('a little bit) alcohol intake: current substance use type: marijuana (I smoke marijuana every day. ) Assessment & Plan Assessment & Plan narrative: 1. Diverticulitis with a more organized abscess in the sigmoid colon, present on admission and active. -Dr. Garcia to perform surgery on 07/16, currently NPO -continue IV antibiotics -discussed with Interventional Radiology, not a candidate for percutaneous intervention. The abscess is too small and is not a clear window. Dispo: Home in 1-2 days pending abscess drainage and likely colectomy. Quality VTE Deep Vein Thrombosis/Pulmonary Embolism Present on Admission: No
--- NOTE | 2023-07-17 15:00 | PM.CALLCOV.1 ---
Call Coverage Note Note Date of Patient Contact: 07/17/23 Time of Patient Contact: 15:00 Narrative of Care Provided: 42-year-old male admitted to the hospital with acute complicated diverticulitis. He has a history of diverticulitis for the past 10 years with numerous episodes of uncomplicated disease. One week ago he presented with acute diverticulitis and has been managed with conservative therapy. He has a 6 cm pelvic abscess which is not amenable to percutaneous drainage. Despite 1 week of antibiotics he remains with significant abdominal pain WBC 23 today was 15 at admission. Lengthy discussion with the patient and his today in regards to his present condition. I do not think that he is likely to improve with further antibiotic therapy at this point. I think he needs a sigmoid colectomy for definitive management at this point. I explained that the intra-abdominal conditions will dictate whether or not we can do a primary anastomosis, primary anastomosis with diverting ileostomy or end colostomy. He understands that the operation has inherent risk such as hemorrhage, infection, anastomotic leak, damage to surrounding structures. His questions have been answered and he is in agreement with this plan.
[2023-07-17] MEDS: LACTATED RINGERS 1,000 ML 42 ML IV ×2 (16:16→18:17)
--- NOTE | 2023-07-17 17:22 | SUR.OPER ---
Addendum entered by Sangeeta Romero R.N. 07/17/23 17:23: ON PINK PAD. Original Note: Lithotomy on padded OR bed, head on pillow, arms secured on padded arm boards at <90 degrees abduction. Legs secured in padded yellow fins stirrups.
[2023-07-17] MEDS: ACETAMINOPHEN IV 1,000 MG/100 ML VIAL 400 MG IV (17:41)
[2023-07-17] MEDS: BUPIVACAINE 0.25% (PF) VIAL 30 ML INJ (17:50)
[2023-07-17] MEDS: BUPIVACAINE LIPOSOME 266 MG/20 ML VIAL INJ (17:52)
--- NOTE | 2023-07-17 19:57 | PM.OP.1 ---
Operative Date/Time/Diagnoses Date of procedure: 07/17/23 Time of procedure: 19:57 Pre-op diagnosis: Diverticulitis Intra-abdominal abscess Post-op diagnosis: same Procedure & Clinicians Procedure: Sigmoid colectomy Mobilization of splenic flexure Drainage of intra-abdominal abscess Placement of abdominal wall mesh Same procedure as scheduled: Yes Indications: 42-year-old man with 10 years recurrent uncomplicated diverticulitis. He presented to the hospital with acute diverticulitis with intra-abdominal abscess which was not amenable to percutaneous drainage. He has been maintained on IV antibiotic therapy for nearly a week with failure to improve. Following extensive discussion he elects to proceed with a colectomy with possible colostomy, possible diverting ileostomy. Surgeon: Junaid Garcia Laboratory Geneticist: Madan Forrester Anesthesia Type: General Operative Notes Findings: 12 in segment of indurated sigmoid colon with associated intra abdominal abscess. Pliable healthy tissue above and below resection Negative leak test Specimen(s): other (Sigmoid colon) Estimated Blood Loss (mL): 200 Procedure in detail: Patient was brought to the operating room placed supine on the table. Bilateral lower extremity compression devices were applied. General anesthesia was induced and he was intubated with an endotracheal tube. Moul[place] catheter was sterilely placed. He was positioned into lithotomy. He was then prepped and draped in sterile fashion and a time-out was performed. We began with a midline laparotomy. The abdomen was entered there was no purulent material within the abdomen. The sigmoid colon was extremely firm and frozen to the left pelvic sidewall with an associated abscess. The abscess was drained. The sigmoid colon was mobilized in a lateral to medial fashion by incising the white line of Toldt to the splenic flexure. At the junction of the descending colon/sigmoid the bowel was pliable and soft and window within the mesentery was made in the bowel was divided using the contour stapler. The sigmoid mesentery was then divided using the LigaSure staying close to the bowel wall. The vascular pedicle was ligated with silk suture x2. An extensive search was made for identification of the ureter both left and right however the degree of inflammation within the pelvis was such that we could not identify it. We stayed as close to the bowel wall as possible to mitigate the risk of injury. The dissection was continued down into the pelvis to the upper rectum were the tissue again became soft and pliable. The colon was divided in a similar fashion using the contour stapler. The specimen was then passed off the field as labeled sigmoid colon. There was insufficient length of the proximal segment to reach the pelvis and so we mobilized the splenic flexure. The lesser sac was opened and we carried our dissection all the way to the spleen taking down the splenocolic ligament which dropped the level of the transverse colon significantly and the proximal end could easily reach into the pelvis without tension. Rectum was sized and comfortably fit 31 mm Sizer and a 31 mm EEA stapler was then selected. Proximal staple line was resected and a pursestring was formed using 3-0 PDS suture. The anvil was then placed within the proximal colon and the end was debrided of any bulky tissue in order to provide a clean landing zone for the anastomosis. The stapler was then inserted into the rectum and is point deployed through the rectal stump under direct visualization. The anvil and stapler were then mated and we were careful to ensure that there was no twist or additional material within the anastomosis and the stapler was fired. It returned two generous anastomotic donuts. Colonoscope was then placed into the rectum and insufflated the pelvis was filled with irrigation. A leak test was performed and the leak test was negative. The abdomen was then copiously lavaged with saline hemostasis was checked. At this point the abdomen was closed in a running fashion using 1. Looped PDS suture. 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 Given these factors we elected to use a prophylactic piece of Phasix mesh. We selected a 10 x 15 cm piece which was trimmed to the appropriate size. Bilateral skin flaps were raised and then the mesh was tacked using Vicryl sutures to the anterior fascia in an overlay fashion. The subcutaneous tissue was then reapproximated using 3-0 Vicryl suture. The skin was closed with harpreet followed by a sterile dressing. Bilateral tap blocks were performed by anesthesia with ultrasound guidance. He emerged from anesthesia was extubated and transferred to recovery in stable condition. The sponge and instrument count was correct x2. Complications: none Post-operative Condition: stable Disposition: Acute Care
--- NOTE | 2023-07-17 20:40 | SUR.PHASEI ---
Block start time [1940] . Time out done at 1936 in the OR. Monitoring initiated and maintained throughout procedure. Oxygen and medications given per anesthesiologist instructions. Patient remained stable throughout procedure, no adverse reactions noted. Block end time [1946].
[2023-07-17] MEDS: SODIUM CHLORIDE 0.9% 1,000 ML 75 ML IV (21:21)
[2023-07-17] MEDS: DOCUSATE 100 MG CAPSULE PO (22:00)
[2023-07-17] MEDS: OXYCODONE IR 5 MG TABLET PO (22:00)
--- NOTE | 2023-07-17 22:20 | CM.MNRNOTE ---
2034 Patient returned to the floor from PACU, C/O of abdominal pain rated pain level @ 7-8/10. Medicated with 1 mg. of Dilaudid IVP. Aquacel dressing to midline incision CDI. Re-oriented to his room, denies any nausea. Given ice chips C/O dry mouth, will contnue plan of care & monitor.
[2023-07-18] MEDS: OXYCODONE IR 5 MG TABLET PO ×2 (01:03→04:48)
[2023-07-18 03:00] VITALS: BP 139/81; PULSE 70; RESP 18; TEMP 36.9; O2SAT 96
[2023-07-18] MEDS: PIPERACILLIN/TAZO 3.375 GM in SODIUM CHLORIDE 0.9% 100 ML IV ×3 (04:38→20:03)
[2023-07-18] MEDS: ONDANSETRON 4 MG/2 ML INJ IV ×3 (04:55→17:31)
[2023-07-18 06:26] LABS: Add Manual Diff / Slide Review NO; Basophils Absolute Auto 0 /uL (0-100); Basophils Percent Auto 0.1 % (0-2); Eosinophils Absolute Auto 0 /uL (0-450); Hematocrit 36.9 % (41-53); Hemoglobin 12.3 g/dL (13.5-17.5); Lymphocytes Absolute Auto 700 /uL (1100-4500); Lymphocytes Percent Auto 2.7 % (25-40); Mean Corpuscular HGB Conc 33.5 % (30-36); Mean Corpuscular Hemoglobin 29.8 PG (26-34); Mean Corpuscular Volume 88.9 fL (80-100); Monocytes Absolute Auto 2400 /uL (0-900); Monocytes Percent Auto 9.4 % (3-14); Neutrophils Absolute Auto 22200 /uL (1500-7000); Neutrophils Percent Auto 87.8 % (50-75); Platelet Count 472 X10^3/uL (150-400); Red Blood Cell Count 4.15 X10^6/uL (4.5-5.9); Red Cell Distribution Width 13.8 % (11.6-14.8); White Blood Cell Count 25.3 X10^3/uL (4.5-11.0)
[2023-07-18 06:37] LABS: BUN Creatinine Ratio 12.3 (6-22); Blood Urea Nitrogen 8 mg/dL (9-20); Calcium 8.3 mg/dL (8.4-10.2); Carbon Dioxide 23 mmol/L (22-32); Chloride 103 mmol/L (98-107); Estimated Glomerular Filt Rate > 60 mL/min (>60); Glucose 151 mg/dL (70-100); HEMOLYSIS < 15 (0-50); Potassium 4.2 mmol/L (3.4-5.1); Sodium 135 mmol/L (137-145)
[2023-07-18 07:00] VITALS: BP 135/83; PULSE 67; RESP 16; TEMP 36.9; O2SAT 98
[2023-07-18] MEDS: HYDROMORPHONE 1 MG INJ IV ×7 (07:25→22:20)
[2023-07-18] MEDS: ENOXAPARIN 40 MG/0.4 ML SYRINGE SUBCUT (09:30)
[2023-07-18] MEDS: SODIUM CHLORIDE 0.9% 1,000 ML 75 ML IV ×2 (09:35→22:27)
--- NOTE | 2023-07-18 10:58 | CM.DPC ---
DCP Continued Reviewed EMR and team rounds for pt?s medical status. Pt is POD1 of sigmoid colectomy. Per RN, pt is on IV pain medications and is still managing pain. Per hospitalist, pt anticipating dc home in 1 or 2 days pending advancement of diet. Plan: No identified discharge needs at this time, anticipating dc home with family. CM Team will continue to follow for coordination of discharge plans. MICHELLE Anaya
--- NOTE | 2023-07-18 11:05 | P.PN_ITS ---
Subjective Subjective Date Patient Seen: 07/18/23 Time Patient Seen: 11:05 Interval history: Complaining of incisional pain but happy to have had his successful surgery yesterday. Exam Vital Signs (past 8 hours): - 07/18/23 07:00 07/18/23 07:00 Temperature 98.5 F Pulse Rate 67 Respiratory Rate 16 Blood Pressure 135/83 Pulse Oximetry 98 Oxygen Delivery Method Room Air Oxygen Flow Rate 3 Oxygen Delivery Method Room Air Oxygen Flow Rate 3 Narrative Exam Narrative: Abdomen soft with appropriate incisional tenderness Objective Labs 07/18/23 06:16 07/18/23 06:16 Labs: Laboratory Results - last 24 hr 07/18/23 06:16 WBC 25.3 H RBC 4.15 L Hgb 12.3 L Hct 36.9 L MCV 88.9 MCH 29.8 MCHC 33.5 RDW 13.8 Plt Count 472 H Neut % (Auto) 87.8 H Lymph % (Auto) 2.7 L [place] % (Auto) 9.4 Eos % (Auto) 0.0 L Baso % (Auto) 0.1 Neut # (Auto) 48294 H Lymph # (Auto) 700 L [place] # (Auto) 2400 H Eos # (Auto) 0 Baso # (Auto) 0 Sodium 135 L Potassium 4.2 Chloride 103 Carbon Dioxide 23 BUN 8 L Creatinine 0.65 L Estimated GFR > 60 BUN/Creatinine Ratio 12.3 Glucose 151 H Calcium 8.3 L PFSH Medical History Low back strain History of gout History of kidney stones History of diverticulitis Family History Father Cancer Uncle Diabetes mellitus Grandfather Congestive heart failure Social History household members: spouse and children Smoking Status: Current every day smoker Tobacco: How many years used: 18 quit status: considering quitting (I would like to talk to Celina about starting Chanitix if it is an option.) second hand exposure: Yes ('a little bit) alcohol intake: current substance use type: marijuana (I smoke marijuana every day. ) Assessment & Plan Assessment and plan (1) Diverticulitis: Status: Acute Plan Continue diet Await bowel function DC Moul[place] Mobilize Quality VTE Deep Vein Thrombosis/Pulmonary Embolism Present on Admission: No
--- NOTE | 2023-07-18 14:17 | PM.PN.1 ---
Subjective Subjective Interval history: Patient underwent successful colectomy with reanastomosis yesterday. He is some pain with nausea today and tolerating ice chips. at bedside. Morejon to be removed. Exam Vital Signs (past 8 hours): - 07/18/23 07:00 07/18/23 07:00 Temperature 98.5 F Pulse Rate 67 Respiratory Rate 16 Blood Pressure 135/83 Pulse Oximetry 98 Oxygen Delivery Method Room Air Oxygen Flow Rate 3 Oxygen Delivery Method Room Air Oxygen Flow Rate 3 Narrative Exam Narrative: NAD, alert and oriented. Fluent speech. Lungs are clear, normal rate and effort. Heart is regular, no murmur gallop or rub. Abdomen is soft, non distended. Incisions present postop. Extremities are free of edema. Objective Labs 07/18/23 06:16 07/18/23 06:16 Labs: Laboratory Results - last 24 hr 07/18/23 06:16 WBC 25.3 H RBC 4.15 L Hgb 12.3 L Hct 36.9 L MCV 88.9 MCH 29.8 MCHC 33.5 RDW 13.8 Plt Count 472 H Neut % (Auto) 87.8 H Lymph % (Auto) 2.7 L [place] % (Auto) 9.4 Eos % (Auto) 0.0 L Baso % (Auto) 0.1 Neut # (Auto) 09001 H Lymph # (Auto) 700 L [place] # (Auto) 2400 H Eos # (Auto) 0 Baso # (Auto) 0 Sodium 135 L Potassium 4.2 Chloride 103 Carbon Dioxide 23 BUN 8 L Creatinine 0.65 L Estimated GFR > 60 BUN/Creatinine Ratio 12.3 Glucose 151 H Calcium 8.3 L PFSH Medical History Low back strain History of gout History of kidney stones History of diverticulitis Family History Father Cancer Uncle Diabetes mellitus Grandfather Congestive heart failure Social History household members: spouse and children Smoking Status: Current every day smoker Tobacco: How many years used: 18 quit status: considering quitting (I would like to talk to Celina about starting Chanitix if it is an option.) second hand exposure: Yes ('a little bit) alcohol intake: current substance use type: marijuana (I smoke marijuana every day. ) Assessment & Plan Assessment & Plan narrative: 1. Diverticulitis with abscess s/p colectomy and reanastomosis, present on admission and active. -Dr. Garcia performed surgery on 07/16 -continue IV zosyn for now, f/up abscess cultures -trend labs -full liquid diet per gen surg -dc morejon Dispo: Home in 3-5 days pending tolerating diet, pain control and passing gas. Quality VTE Deep Vein Thrombosis/Pulmonary Embolism Present on Admission: No
[2023-07-18 16:00] VITALS: BP 139/74; PULSE 62; RESP 16; TEMP 36.2; O2SAT 99
[2023-07-18] MEDS: CALCIUM CARBONATE 500 MG TAB 1000 MG PO (17:32)
[2023-07-18] MEDS: PANTOPRAZOLE DR 20 MG TABLET 40 MG PO (17:32)
[2023-07-18 19:00] VITALS: BP 136/73; PULSE 62; RESP 18; TEMP 36.1; O2SAT 94
[2023-07-18] MEDS: METOCLOPRAMIDE 10 MG/2 ML INJ IV (22:21)
[2023-07-19] MEDS: HYDROMORPHONE 1 MG INJ IV ×12 (00:38→23:56)
[2023-07-19 05:00] VITALS: BP 154/93; PULSE 89; RESP 18; TEMP 36.7; O2SAT 97
[2023-07-19] MEDS: ONDANSETRON 4 MG/2 ML INJ IV ×4 (05:18→23:10)
[2023-07-19] MEDS: PIPERACILLIN/TAZO 3.375 GM in SODIUM CHLORIDE 0.9% 100 ML IV ×3 (05:18→20:13)
[2023-07-19 06:04] LABS: Add Manual Diff / Slide Review NO; Basophils Absolute Auto 0 /uL (0-100); Basophils Percent Auto 0.2 % (0-2); Eosinophils Absolute Auto 0 /uL (0-450); Eosinophils Percent Auto 0.3 % (2-4); Hematocrit 33.7 % (41-53); Hemoglobin 11.4 g/dL (13.5-17.5); Lymphocytes Absolute Auto 1400 /uL (1100-4500); Lymphocytes Percent Auto 6.9 % (25-40); Mean Corpuscular HGB Conc 33.8 % (30-36); Mean Corpuscular Volume 88.8 fL (80-100); Monocytes Absolute Auto 2200 /uL (0-900); Monocytes Percent Auto 11.4 % (3-14); Neutrophils Absolute Auto 15900 /uL (1500-7000); Neutrophils Percent Auto 81.2 % (50-75); Platelet Count 577 X10^3/uL (150-400); Red Blood Cell Count 3.79 X10^6/uL (4.5-5.9); Red Cell Distribution Width 13.7 % (11.6-14.8); White Blood Cell Count 19.6 X10^3/uL (4.5-11.0)
[2023-07-19 06:18] LABS: BUN Creatinine Ratio 13.3 (6-22); Blood Urea Nitrogen 11 mg/dL (9-20); Calcium 8.3 mg/dL (8.4-10.2); Carbon Dioxide 26 mmol/L (22-32); Chloride 102 mmol/L (98-107); Estimated Glomerular Filt Rate > 60 mL/min (>60); Glucose 136 mg/dL (70-100); HEMOLYSIS < 15 (0-50); Potassium 3.9 mmol/L (3.4-5.1); Sodium 136 mmol/L (137-145)
--- NOTE | 2023-07-19 06:30 | PC.NURSE ---
Pt has been nauseous throughout the night and vomited 190 ml of brown emesis this morning. Pt reported he is not passing gas up to this time.
[2023-07-19] MEDS: METOCLOPRAMIDE 10 MG/2 ML INJ IV ×3 (07:38→19:33)
[2023-07-19 09:00] VITALS: BP 130/74; PULSE 62; RESP 16; TEMP 36.7; O2SAT 98
--- NOTE | 2023-07-19 09:08 | PM.PN.1 ---
Subjective Subjective Date Patient Seen: 07/19/23 Time Patient Seen: 09:08 Interval history: Has had some nausea and vomiting overnight. No flatus. Abdominal pain about the same. Exam Vital Signs (past 8 hours): - 07/19/23 05:00 Temperature 98.1 F Pulse Rate 89 Respiratory Rate 18 Blood Pressure 154/93 H Pulse Oximetry 97 Oxygen Flow Rate 0 Oxygen Delivery Method Room Air Oxygen Flow Rate 0 Const General: No acute distress Resp Effort & Inspection: normal respiratory effort GI Palpation: soft Objective Labs 07/19/23 05:50 07/19/23 05:50 Labs: Laboratory Results - last 24 hr 07/19/23 05:50 WBC 19.6 H RBC 3.79 L Hgb 11.4 L Hct 33.7 L MCV 88.8 MCH 30.0 MCHC 33.8 RDW 13.7 Plt Count 577 H Neut % (Auto) 81.2 H Lymph % (Auto) 6.9 L [place] % (Auto) 11.4 Eos % (Auto) 0.3 L Baso % (Auto) 0.2 Neut # (Auto) 74708 H Lymph # (Auto) 1400 [place] # (Auto) 2200 H Eos # (Auto) 0 Baso # (Auto) 0 Sodium 136 L Potassium 3.9 Chloride 102 Carbon Dioxide 26 BUN 11 Creatinine 0.83 Estimated GFR > 60 BUN/Creatinine Ratio 13.3 Glucose 136 H Calcium 8.3 L PFSH Medical History Low back strain History of gout History of kidney stones History of diverticulitis Family History Father Cancer Uncle Diabetes mellitus Grandfather Congestive heart failure Social History household members: spouse and children Smoking Status: Current every day smoker Tobacco: How many years used: 18 quit status: considering quitting (I would like to talk to Celina about starting Chanitix if it is an option.) second hand exposure: Yes ('a little bit) alcohol intake: current substance use type: marijuana (I smoke marijuana every day. ) Assessment & Plan Assessment and plan (1) Diverticulitis: Status: Acute Plan He should be back to NPO while nauseated. If he feels better later we can resume a clear liquid diet. Quality VTE Deep Vein Thrombosis/Pulmonary Embolism Present on Admission: No
[2023-07-19] MEDS: ENOXAPARIN 40 MG/0.4 ML SYRINGE SUBCUT (09:23)
[2023-07-19] MEDS: SODIUM CHLORIDE 0.9% 1,000 ML 75 ML IV ×2 (10:50→23:59)
--- NOTE | 2023-07-19 13:30 | CM.DPC ---
DCP Cont: Discussed patient during team rounds. Hospitalist indicated that he anticipates that patient will be here for a few more days, will need to be cleared by surgery. Diet is being advanced. P: DCP to continue to monitor closely. Patient should be able to go home with spouse when deemed medically stable, patient resides here in [place], and is independent at his baseline. Geno Hylton RN/[facility] [employer]
--- NOTE | 2023-07-19 15:55 | PM.PN.1 ---
Subjective Subjective Interval history: Patient had some vomiting earlier when trying liquids. Now back to NPO. WBC downtrending. Abd pain present but as expected. Exam Vital Signs (past 8 hours): - 07/19/23 09:00 Temperature 98.0 F Pulse Rate 62 Respiratory Rate 16 Blood Pressure 130/74 Pulse Oximetry 98 Oxygen Flow Rate 0 Oxygen Delivery Method Room Air Oxygen Flow Rate 0 Narrative Exam Narrative: NAD, alert and oriented. Fluent speech. Lungs are clear, normal rate and effort. Heart is regular, no murmur gallop or rub. Abdomen is soft, non distended. Incisions present postop. Extremities are free of edema. Objective Labs 07/19/23 05:50 07/19/23 05:50 Labs: Laboratory Results - last 24 hr 07/19/23 05:50 WBC 19.6 H RBC 3.79 L Hgb 11.4 L Hct 33.7 L MCV 88.8 MCH 30.0 MCHC 33.8 RDW 13.7 Plt Count 577 H Neut % (Auto) 81.2 H Lymph % (Auto) 6.9 L [place] % (Auto) 11.4 Eos % (Auto) 0.3 L Baso % (Auto) 0.2 Neut # (Auto) 72991 H Lymph # (Auto) 1400 [place] # (Auto) 2200 H Eos # (Auto) 0 Baso # (Auto) 0 Sodium 136 L Potassium 3.9 Chloride 102 Carbon Dioxide 26 BUN 11 Creatinine 0.83 Estimated GFR > 60 BUN/Creatinine Ratio 13.3 Glucose 136 H Calcium 8.3 L PFSH Medical History Low back strain History of gout History of kidney stones History of diverticulitis Family History Father Cancer Uncle Diabetes mellitus Grandfather Congestive heart failure Social History household members: spouse and children Smoking Status: Current every day smoker Tobacco: How many years used: 18 quit status: considering quitting (I would like to talk to Celina about starting Chanitix if it is an option.) second hand exposure: Yes ('a little bit) alcohol intake: current substance use type: marijuana (I smoke marijuana every day. ) Assessment & Plan Assessment & Plan narrative: 1. Diverticulitis with abscess s/p colectomy and reanastomosis, present on admission and active. -Dr. Garcia performed surgery on 07/16 -continue IV zosyn for now, f/up abscess cultures -trend labs, watch for spike in WBC -back to ice chips only -if develops tachycardia, leukocytosis or increased abd pain will rescan with CT abd Dispo: Home in 3-4 days pending tolerating diet, pain control and passing gas. Quality VTE Deep Vein Thrombosis/Pulmonary Embolism Present on Admission: No
[2023-07-19 17:00] VITALS: BP 146/83; PULSE 63; RESP 16; TEMP 36.6; O2SAT 99
[2023-07-19 20:35] VITALS: BP 139/78; PULSE 60; RESP 16; TEMP 36.7; O2SAT 95
[2023-07-20] VITALS (7 sets, daily range): BP systolic 125–139; BP diastolic 77–83; PULSE 53–79; RESP 16–19; TEMP 36.2–37.1; O2SAT 96–98
[2023-07-20] MEDS: METOCLOPRAMIDE 10 MG/2 ML INJ IV ×4 (01:47→21:23)
[2023-07-20] MEDS: HYDROMORPHONE 1 MG INJ IV ×7 (01:47→14:54)
[2023-07-20] MEDS: PIPERACILLIN/TAZO 3.375 GM in SODIUM CHLORIDE 0.9% 100 ML IV ×3 (04:54→21:24)
[2023-07-20 06:08] LABS: Add Manual Diff / Slide Review NO; Basophils Absolute Auto 100 /uL (0-100); Basophils Percent Auto 0.6 % (0-2); Eosinophils Absolute Auto 200 /uL (0-450); Eosinophils Percent Auto 1.5 % (2-4); Hematocrit 31.6 % (41-53); Hemoglobin 10.6 g/dL (13.5-17.5); Lymphocytes Absolute Auto 1800 /uL (1100-4500); Lymphocytes Percent Auto 11.5 % (25-40); Mean Corpuscular HGB Conc 33.7 % (30-36); Mean Corpuscular Volume 89.1 fL (80-100); Monocytes Absolute Auto 1900 /uL (0-900); Monocytes Percent Auto 11.9 % (3-14); Neutrophils Absolute Auto 11800 /uL (1500-7000); Neutrophils Percent Auto 74.5 % (50-75); Platelet Count 530 X10^3/uL (150-400); Red Blood Cell Count 3.54 X10^6/uL (4.5-5.9); Red Cell Distribution Width 13.6 % (11.6-14.8); White Blood Cell Count 15.8 X10^3/uL (4.5-11.0)
[2023-07-20 06:19] LABS: BUN Creatinine Ratio 12.2 (6-22); Blood Urea Nitrogen 10 mg/dL (9-20); Calcium 8.1 mg/dL (8.4-10.2); Carbon Dioxide 25 mmol/L (22-32); Chloride 105 mmol/L (98-107); Estimated Glomerular Filt Rate > 60 mL/min (>60); Glucose 103 mg/dL (70-100); HEMOLYSIS < 15 (0-50); Sodium 136 mmol/L (137-145)
[2023-07-20] MEDS: ONDANSETRON 4 MG/2 ML INJ IV ×4 (06:29→23:59)
--- NOTE | 2023-07-20 06:45 | PC.NURSE ---
Pt c/o nausea, (No emesis tonight), antinausea meds given frequently and IVP 1 mg dilaudid every 2 hours. No flatus, abdomen slightly distended, bowel tones hypo on the right lower quadrant. Pt ambulating to the bathroom in the room and ambulated in the hallway early this am.
--- NOTE | 2023-07-20 07:17 | PM.PN.1 ---
Subjective Subjective Interval history: Some belching, nausea, and abdominal distention with no flatus. Consistent with ileus. Only ice chips per surgery. He has been walking quite a bit. He has good pain control. Exam Vital Signs (past 8 hours): - 07/20/23 00:03 07/20/23 04:03 Temperature 98.7 F 97.5 F L Pulse Rate 79 56 L Respiratory Rate 16 19 Blood Pressure 128/83 133/81 Pulse Oximetry 98 97 Oxygen Flow Rate 0 0 Oxygen Delivery Method Room Air Oxygen Flow Rate 0 Narrative Exam Narrative: NAD, fluent speech. Lungs are clear with normal effort. Heart is regular, no murmur. Abdomen is somewhat distended and hypertympanic with no bowel tones. Nontender to palpation. Extremities are free of edema. Objective Labs 07/20/23 05:48 07/20/23 05:48 Labs: Laboratory Results - last 24 hr 07/20/23 05:48 WBC 15.8 H RBC 3.54 L Hgb 10.6 L Hct 31.6 L MCV 89.1 MCH 30.0 MCHC 33.7 RDW 13.6 Plt Count 530 H Neut % (Auto) 74.5 Lymph % (Auto) 11.5 L [place] % (Auto) 11.9 Eos % (Auto) 1.5 L Baso % (Auto) 0.6 Neut # (Auto) 81016 H Lymph # (Auto) 1800 [place] # (Auto) 1900 H Eos # (Auto) 200 Baso # (Auto) 100 Sodium 136 L Potassium 4.0 Chloride 105 Carbon Dioxide 25 BUN 10 Creatinine 0.82 Estimated GFR > 60 BUN/Creatinine Ratio 12.2 Glucose 103 H Calcium 8.1 L PFSH Medical History Low back strain History of gout History of kidney stones History of diverticulitis Family History Father Cancer Uncle Diabetes mellitus Grandfather Congestive heart failure Social History household members: spouse and children Smoking Status: Current every day smoker Tobacco: How many years used: 18 quit status: considering quitting (I would like to talk to Celina about starting Chanitix if it is an option.) second hand exposure: Yes ('a little bit) alcohol intake: current substance use type: marijuana (I smoke marijuana every day. ) Assessment & Plan Assessment & Plan narrative: 1. Diverticulitis with abscess s/p colectomy and reanastomosis, present on admission and active. -Dr. Garcia performed surgery on 07/16 -continue IV zosyn for now, f/up abscess cultures. Discuss duration of antibiotics with surgery. -watch WBC -back to ice chips only -if develops tachycardia, leukocytosis or increased abd pain will rescan with CT abd 2. Ileus, new and active. -monitor clinically. Continue to ambulate. Dispo: Home in 3-4 days pending tolerating diet, pain control and passing gas. Quality VTE Deep Vein Thrombosis/Pulmonary Embolism Present on Admission: No
[2023-07-20] MEDS: ENOXAPARIN 40 MG/0.4 ML SYRINGE SUBCUT (08:31)
[2023-07-20] MEDS: DOCUSATE 100 MG CAPSULE PO (08:31)
[2023-07-20] MEDS: PANTOPRAZOLE 40 MG VIAL IV (10:32)
--- NOTE | 2023-07-20 11:35 | DIET.CONS ---
Dietary Consultation Note Admission Date: 07/12/2023 22:09 Assessment: 42 y M admitted for diverticulitis. Nutrition screened for inadequate intake for >7 days. Per hospitalist note, pt with nausea, abdominal distension, and no flatus, symptoms consistent with ileus. Met with pt at bedside who reports for a week before hospitalization, he was unable to eat. Reports a chicken nugget or a strip of beef jerky, but otherwise no intake. Pt on day 8 of NPO/clear liquid. Ht: 165.1 cm Wt: 72.575 kg BMI: 26.6 UBW: 74.389 kg per chart on 04/25/23 Last BM: 07/16/23 (07/17/23 16:24) MNA: 12 Haim Score: 20 Diet: 07/19/23 09:10 NPO Diet Diet Modifications: NPO Type: NPO except for Ice Chips Nutrition Percent Meal Consumed pt npo 07/19/23 17:00 Percent Meal Consumed pt npo 07/19/23 11:00 Percent Meal Consumed 25% 07/18/23 18:00 Labs: RBC 3.54 X10^6/uL (4.5-5.9) L 07/20/23 05:48 Hgb 10.6 g/dL (13.5-17.5) L 07/20/23 05:48 Hct 31.6 % (41-53) L 07/20/23 05:48 Creatinine 0.82 mg/dL (0.66-1.25) 07/20/23 05:48 Nutrition Diagnosis: Inadequate oral intake r/t to altercations in GI tract as evidenced by <25% of estimated energy requirements for 14 days with last 7 of those days NPO/clear liquid diet Interventions: If unable to advance to full liquid diet by end of today, consider starting TPN with following recommendations: 1. Recc TPN via PICC starting with 1 L Clinimix 5/20 running at 42 mL/h for first 24h. Pt at moderate risk for refeeding secondary to prolonged NPO and clear liquid phase diet. Recc checking magnesium, phos, and potassium BID for first 3 days and replete per protocol. 2. If pt tolerates without signs of refeeding syndrome, recc increasing to goal of 1.5 L Clinimix 5/20 on day 2, running at 62 mL/h with 250 IVFE 3x/week, providing 1535 kcals (85% EER) and 75 g protein (100% EER) once at goal rate. EER: 8621-9260 kcals/day (25 kcals/kg per BMI) 70-80 g protein/day (1.0-1.1 g/kg using ABW per post-op) Monitoring/Evaluations: diet advancement, TPN Electronically Signed by: Kristen Romero 07/20/23 11:35 Clinical Dietitian [address] [id number]
--- NOTE | 2023-07-20 11:50 | CM.DPNOTE ---
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 Per hospitalist, anticipate dc in 3-4 days pending tolerating diet. Pt has been ambulating halls. currently only ice chips at this time. Plan: DCP to continue to monitor closely. Patient should be able to go home with spouse when deemed medically stable, patient resides here in [place], and is independent at his baseline. YAW Hernandez
[2023-07-20] MEDS: SODIUM CHLORIDE 0.9% 1,000 ML 75 ML IV (13:25)
[2023-07-20] MEDS: OXYCODONE IR 10 MG TABLET PO ×3 (16:34→23:10)
--- NOTE | 2023-07-20 17:49 | PM.PN.1 ---
Subjective Subjective Date Patient Seen: 07/20/23 Time Patient Seen: 17:49 Interval history: Feeling much better today. Passing gas and has had 1 bowel movement. Tolerating clears. Exam Vital Signs (past 8 hours): - 07/20/23 11:00 07/20/23 15:53 Temperature 97.2 F L 97.8 F Pulse Rate 60 57 L Respiratory Rate 18 18 Blood Pressure 126/79 132/82 Pulse Oximetry 97 96 Oxygen Flow Rate 0 0 Oxygen Delivery Method Room Air Oxygen Flow Rate 0 Narrative Exam Narrative: Abdomen is soft Incision is clean dry and intact Objective Labs 07/20/23 05:48 07/20/23 05:48 Labs: Laboratory Results - last 24 hr 07/20/23 05:48 WBC 15.8 H RBC 3.54 L Hgb 10.6 L Hct 31.6 L MCV 89.1 MCH 30.0 MCHC 33.7 RDW 13.6 Plt Count 530 H Neut % (Auto) 74.5 Lymph % (Auto) 11.5 L [place] % (Auto) 11.9 Eos % (Auto) 1.5 L Baso % (Auto) 0.6 Neut # (Auto) 48459 H Lymph # (Auto) 1800 [place] # (Auto) 1900 H Eos # (Auto) 200 Baso # (Auto) 100 Sodium 136 L Potassium 4.0 Chloride 105 Carbon Dioxide 25 BUN 10 Creatinine 0.82 Estimated GFR > 60 BUN/Creatinine Ratio 12.2 Glucose 103 H Calcium 8.1 L PFSH Medical History Low back strain History of gout History of kidney stones History of diverticulitis Family History Father Cancer Uncle Diabetes mellitus Grandfather Congestive heart failure Social History household members: spouse and children Smoking Status: Current every day smoker Tobacco: How many years used: 18 quit status: considering quitting (I would like to talk to Celina about starting Chanitix if it is an option.) second hand exposure: Yes ('a little bit) alcohol intake: current substance use type: marijuana (I smoke marijuana every day. ) Assessment & Plan Assessment and plan (1) Diverticulitis: Status: Acute Plan Advance diet to regular. Quality VTE Deep Vein Thrombosis/Pulmonary Embolism Present on Admission: No
[2023-07-20] MEDS: ACETAMINOPHEN 325 MG TABLET 650 MG PO (19:49)
[2023-07-21 05:30] VITALS: BP 125/73; PULSE 69; RESP 16; TEMP 36.7; O2SAT 96
[2023-07-21] MEDS: ONDANSETRON 4 MG/2 ML INJ IV (05:34)
[2023-07-21] MEDS: PIPERACILLIN/TAZO 3.375 GM in SODIUM CHLORIDE 0.9% 100 ML IV (05:34)
[2023-07-21] MEDS: ACETAMINOPHEN 325 MG TABLET 650 MG PO (05:35)
[2023-07-21] MEDS: OXYCODONE IR 10 MG TABLET PO (05:36)
[2023-07-21 06:28] LABS: Add Manual Diff / Slide Review NO; Basophils Absolute Auto 100 /uL (0-100); Basophils Percent Auto 0.3 % (0-2); Eosinophils Absolute Auto 300 /uL (0-450); Eosinophils Percent Auto 1.7 % (2-4); Hematocrit 33.5 % (41-53); Hemoglobin 11.4 g/dL (13.5-17.5); Lymphocytes Absolute Auto 1500 /uL (1100-4500); Lymphocytes Percent Auto 7.6 % (25-40); Mean Corpuscular HGB Conc 34.1 % (30-36); Mean Corpuscular Hemoglobin 30.4 PG (26-34); Mean Corpuscular Volume 89.1 fL (80-100); Monocytes Absolute Auto 1900 /uL (0-900); Monocytes Percent Auto 9.4 % (3-14); Neutrophils Absolute Auto 16100 /uL (1500-7000); Platelet Count 596 X10^3/uL (150-400); Red Blood Cell Count 3.76 X10^6/uL (4.5-5.9); Red Cell Distribution Width 13.6 % (11.6-14.8); White Blood Cell Count 19.9 X10^3/uL (4.5-11.0)
[2023-07-21 06:40] LABS: Blood Urea Nitrogen 8 mg/dL (9-20); Calcium 8.2 mg/dL (8.4-10.2); Carbon Dioxide 23 mmol/L (22-32); Chloride 103 mmol/L (98-107); Estimated Glomerular Filt Rate > 60 mL/min (>60); Glucose 100 mg/dL (70-100); HEMOLYSIS < 15 (0-50); Potassium 3.9 mmol/L (3.4-5.1); Sodium 133 mmol/L (137-145)
[2023-07-21 08:00] VITALS: BP 125/76; PULSE 61; RESP 16; TEMP 36; O2SAT 98
--- NOTE | 2023-07-21 09:07 | CM.DPNOTE ---
Addendum entered by YAW Hernandez 07/21/23 11:31: Per chart review, pt cleared to dc home today. Per RN report, pt has no CM needs, supportive spouse at bedside. 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 Venkatesh note from 5.6 reports pt is tolerating clears and the plan is to advance diet to regular. DC timeline Pending how pt tolerates regular diet, 2-3 days? Plan: DCP to continue to monitor closely. no identified barriers to go home with spouse when deemed medically stable, patient resides here in [place], and is independent at his baseline. YAW Hernandez
[2023-07-21] MEDS: polyethylene glycoL 3350 17 GM POWD.PACK PO (09:14)
[2023-07-21] MEDS: DOCUSATE 100 MG CAPSULE PO (09:14)
[2023-07-21] MEDS: PANTOPRAZOLE 40 MG VIAL IV (09:15)
--- NOTE | 2023-07-21 10:16 | P.DS_ITS ---
History of Present Illness History of Present Illness Date Patient Seen: 07/21/23 Time Patient Seen: 10:17 Chief complaint: here Thurs diverticulitis vomitting pain chills Narrative: Per admitting provider, The pt is a 42 yo male who has been having 2-3 episodes of diverticulitis over the past 6 year and for the past one week he has been having bilateral lower quadrant pain, constant, sharp crampy abdominal pain. He also reports that he had loose stools to start with but now is having small hard stools but also chills, no fevers, body aches, and daily vomiting. His last colonoscopy was 6-12 months ago and was referred to a surgeon but has not follow through with the appointment. The pt came to our ER 3 days ago and was given Augmentin but the pain was worse so he came back to the ER tonight. Discharge Providers Provider Date of admission: 07/12/23 22:09 Discharge Date: 07/21/23 Primary care physician: Neri Hernandez DO Discharge provider: Agusto Wise DO Summary Hospital Course Discharge Diagnosis: 1. Diverticulitis with abscess s/p colectomy and reanastomosis, present on admission and active. 2. Ileus, resolved. Hospital Course: This is a 42 year old male who was admitted for diverticulitis with abscess. Surgery was consulted and performed colectomy with re-anastamosis of 07/17/2023. He took some time to recover after surgery and did develop a post operative ileus. He eventually improved and was tolerating a diet at the time of discharge with controlled pain and had return of bowel function. His WBC was slightly elevated but given improvement clinically he was discharged home. He was given prescription for 10 additional days of antibiotics, and pain control. Outpatient follow up with GI is recommended. Time Spent with Patient Time spent: Greater than 30 minutes Exam Vital Signs (past 8 hours): - 07/21/23 05:30 07/21/23 08:00 Temperature 98.0 F 96.8 F L Pulse Rate 69 61 Respiratory Rate 16 16 Blood Pressure 125/73 125/76 Pulse Oximetry 96 98 Oxygen Flow Rate 0 0 Oxygen Delivery Method Room Air Oxygen Flow Rate 0 Narrative Exam Narrative: Gen: NAD, well appearing CV: RRR Pulm: no respiratory distress Abd: S appropriately tender, non distended. Ext: No edema Objective Labs 07/21/23 06:10 07/21/23 06:10 Labs: Laboratory Results - last 24 hr 07/21/23 06:10 WBC 19.9 H RBC 3.76 L Hgb 11.4 L Hct 33.5 L MCV 89.1 MCH 30.4 MCHC 34.1 RDW 13.6 Plt Count 596 H Neut % (Auto) 81.0 H Lymph % (Auto) 7.6 L [place] % (Auto) 9.4 Eos % (Auto) 1.7 L Baso % (Auto) 0.3 Neut # (Auto) 19537 H Lymph # (Auto) 1500 [place] # (Auto) 1900 H Eos # (Auto) 300 Baso # (Auto) 100 Sodium 133 L Potassium 3.9 Chloride 103 Carbon Dioxide 23 BUN 8 L Creatinine 0.73 Estimated GFR > 60 BUN/Creatinine Ratio 11.0 Glucose 100 Calcium 8.2 L PFSH Medical History Low back strain History of gout History of kidney stones History of diverticulitis Family History Father Cancer Uncle Diabetes mellitus Grandfather Congestive heart failure Social History household members: spouse and children Smoking Status: Current every day smoker Tobacco: How many years used: 18 quit status: considering quitting (I would like to talk to Celina about starting Chanitix if it is an option.) second hand exposure: Yes ('a little bit) alcohol intake: current substance use type: marijuana (I smoke marijuana every day. ) Discharge Assessment & Plan Assessment and Plan Assessment: 1. Acute diverticulitis and possible colitis, present on admission and improved. 2. Possible developing sigmoid abscess on CT, present on admission and improved. 3. Constipation, present on admission and resolved. 4. Remote nephrolithiasis, not present on admission are active. 5. Cigarette dependency, present on admission and active. Plan of Treatment: He will discharge with the Augmentin b.i.d., as well as oxycodone as needed pain 20. He will follow up with agricultural agent scheduled at [facility]. He knows to come back for increased pain, fevers, chills, or vomiting. Discharge Plan Discharge Plan Patient Disposition: Home Provider Discharge Comment: Stable for discharge home, he was close follow up with Gastroenterology at [facility]. This is with Dr. Cooper, with whom I have communicated about his current situation. Discharge orders & Medications Prescriptions: New oxycodone 10 mg Tablet 10 mg PO Q3HR PRN (Reason: Pain, Severe (7-10)) Qty: 20 0RF Rx Instructions: not picked up oxycodone 10 mg tablet 10 mg PO Q4-6H PRN (Reason: pain) Qty: 20 0RF Continued ondansetron 4 mg tablet,disintegrating 4 mg PO Q6H PRN (Reason: nausea and vomiting) Qty: 14 0RF amoxicillin-pot clavulanate 875-125 mg tablet 1 tab PO BID 10 Days Qty: 20 0RF Discontinued cyclobenzaprine 10 mg tablet 10 mg PO BEDTIME PRN (Reason: muscle spasm) Qty: 20 1RF Patient Comments: No longer taking medication hydrocodone-acetaminophen 5-325 mg tablet 1 tab PO QID PRN (Reason: pain) Qty: 20 0RF Patient Comments: no longer taking medication Medication counseling provided by Pharmacist: No Follow up/Referrals: Neri Hernandez, [Primary Care Provider] - Diet/Activity/Treatments Diet: Diet as Tolerated and Regular Activity: As tolerated, no heavy lifting Skin/Wound/Dressing Care Report to your healthcare provider any signs of infection, such as:: chills, fever and increased pain Visit Report/Discharge Packet Instructions: Colectomy -- Open Surgery, DI for Colectomy, DI for Diverticulitis, DI for Prescription Opioid Use, [facility]: Wound Care Stand Alone Forms: Patient Portal/API Discharge Data Primary Care Provider: Neri Hernandez Quality VTE Deep Vein Thrombosis/Pulmonary Embolism Present on Admission: No
--- NOTE | 2023-08-14 11:11 | PC.NURSE ---
Late Entry: colorer, Kailee Otoole, sent this RN an email regarding med discrepancy: During the transition to the new [employer] reporting system, this controlled substance discrepancy may have not been sent to you. Please review and respond with occurance details, if you recall administering these medications, but documentation did not save, please write a late entry note. Pt: Keyshawn Reddyvold 07/18/23 at 1548 Dilaudid 1mg syringe was pulled at 1548, there is no documentation for administration, waste, or return. Pt: Keyshawn Estvold 07/21/23 at 1233 Oxycodone IR 10mg tab was pulled at 1233, there is no documentation of administration, waste or return. Pt was in 7-10/23 pain for days, following his post op abd sx and this RN was administering IV Dilaudid Q2H on the dot. The frequency of the med and the pt load of a 4-5:1 ratio had this RN administering meds and performing tasks continuously for 4-5 days straight. I recall not being able to take a lunch break for a couple of the days that I took care of this pt. I think that in trying to provide excellent care, and trying to relieve the pt of the pain symptoms that he was experiencing and reporting, I must have forgot to scan the medication in the eMAR, in an attempt to stay on time with pt pain demands, and did not notice this discrepancy in the MAR until it was brought to my attention in the email. The 10 mg tab was the last med I administered to pt prior to d/c, and I think I also forgot to submit the administration of med because I was providing d/c education and easing pt's spouse's concerns regarding d/c needs and s/s to look out for. I remember scanning med and writing in the administration note that I was administering med for 09/22 pain, and that pt requested to be medicated prior to d/c, as I usually write for all my pt's who would like a pain med before leaving the hospital, especially in case of pharmacy not being available right away.
== END 2023-07-21 12:50 | disposition home or self-care (01) | DRG 329 ==
LOC: ED 22:00 → AC 22:10 → ICU 07-13 03:17 → AC 07-14 17:44
PROVIDERS: Hospitalist; Student in an Organized Health Care Education/Training Program; Surgery; Admitting Provider Internal Medicine; Emergency Provider Emergency Medicine; PCP Family Medicine; Referring Provider Emergency Medicine; Visit Provider Internal Medicine
PROC: 0DTN0ZZ Resection of Sigmoid Colon, Open Approach (ICD-10-PCS; CPT 49000; principal; 2023-07-17 18:00)
DX: K57.20 Diverticulitis of large intestine with perforation and abscess without bleeding (principal); K65.1 Peritoneal abscess; K91.89 Other postprocedural complications and disorders of digestive system; K56.7 Ileus, unspecified; K52.9 Noninfective gastroenteritis and colitis, unspecified; K59.00 Constipation, unspecified; Z87.442 Personal history of urinary calculi
CPT/HCPCS: 36415; 64450; 74177; 80048; 80053; 81001; 83690; 85025; 87070; 87075; 87076; 87077; 87185; 87186; 87205; 87507; 96365; 96372; 96375; 99283; 99284; C1781; C9113; C9290; J0136; J1100; J1170; J1650; J2270; J2405; J2543; J2704; J2765; J3010; Q9967

== ENCOUNTER 2023-07-29 23:12 | Observation (INO) | payer OTHER, SELFPAY ==
[2023-07-13 02:50] VITALS: BMI 26.6
[2023-07-29 23:18] VITALS: BP 120/67; PULSE 98; RESP 18; TEMP 36.7; O2SAT 98; BMI 24.6
--- NOTE | 2023-07-29 23:22 | DI.CT.S_ITS ---
PROCEDURE: CT ABDOMEN PELVIS W CON INDICATIONS: incision draining/pain TECHNIQUE: After the administration of intravenous contrast, axial sections acquired from the lung bases to the pubic symphysis. Coronal and sagittal reformats were performed. For radiation dose reduction, the following was used: automated exposure control, adjustment of mA and/or kV according to patient size. COMPARISON: [facility], CT, CT ABDOMEN PELVIS W CON, 07/15/2023, 16:16. FINDINGS: Image quality: Diagnostic. Lower Chest: Bibasilar atelectasis. ABDOMEN: Liver: No solid mass. Gallbladder: No radiopaque gallstones or wall thickening. Biliary ducts: No biliary dilation. Pancreas: No ductal dilation. Spleen: Size is within normal limits. Adrenal Glands: No adrenal nodules. Kidneys and Ureters: No hydronephrosis. Small nonobstructing right kidney stones x2. No solid mass. No complex renal cystic lesion which requires follow up. Stomach and Bowel: Sigmoid colon anastomosis. Somewhat prominent stool in the right colon. The appendix is not dilated. Multiple dilated loops of small bowel which are fluid-filled. The stomach is not distended. Stranding in the pelvis near the site of prior inflammation. Peritoneum: No abnormal intraperitoneal fluid. No free air. Ventral Wall: Ventral abdominal wall staple line. Subcutaneous fluid collection measuring 14.6 x 8.9 x 3.6 cm. There are few areas of increased density within the collection. Scattered foci of gas. No hernia. Abdominal Nodes: No retroperitoneal or mesenteric adenopathy by size criteria. Vessels: Aorta and inferior vena cava are normal in size. PELVIS: Pelvic Organs: Unremarkable. Bladder: No bladder wall thickening, accounting for underdistention. Pelvic Nodes: No enlarged lymph nodes. Miscellaneous: No inguinal hernias are seen. Bones: No aggressive osseous abnormality. IMPRESSION: 1. Subcutaneous fluid collection deep to the ventral abdominal wall staple line measuring 14.6 cm in length. 2. Prominent loops of small bowel. Prominent stool in the right colon. No discrete transition point identified. Findings could be due to adynamic ileus. 3. Sigmoid colon anastomosis. Decreased inflammatory change in the this region. 4. Small nonobstructing right kidney stones. Dictated by: Raheem Bautista M.D. on 07/30/2023 at 1:36 Approved by: Raheem Bautista M.D. on 07/30/2023 at 1:44
--- NOTE | 2023-07-29 23:22 | DI.RAD.S_ITS ---
PROCEDURE: XR CHEST 1V INDICATIONS: suspected sepsis TECHNIQUE: One view of the chest was acquired. COMPARISON: [facility], [place], XR CHEST 2V, 11/29/2018, 9:58. [facility], [place], CHEST 1 VIEW, 11/14/2016, 21:55. FINDINGS: Surgical changes and devices: None. Lungs and pleura: Lungs are clear. No pleural effusions or pneumothorax. Mediastinum: Mediastinal contours appear normal. Heart size is normal. Bones and chest wall: No suspicious bony lesions. Overlying soft tissues appear unremarkable. IMPRESSION: No acute cardiopulmonary abnormality is seen. Dictated by: Raheem Bautista M.D. on 07/30/2023 at 1:36 Approved by: Raheem Bautista M.D. on 07/30/2023 at 1:36
[2023-07-29 23:44] LABS: INR 1.4 (0.9-1.3)
[2023-07-29 23:47] LABS: PTT Partial Thromboplastin Tim 38 SECONDS (25.1-36.5)
[2023-07-29 23:48] LABS: Add Manual Diff / Slide Review NO; Basophils Absolute Auto 100 /uL (0-100); Basophils Percent Auto 0.4 % (0-2); Eosinophils Absolute Auto 100 /uL (0-450); Eosinophils Percent Auto 0.2 % (2-4); Hematocrit 33.9 % (41-53); Hemoglobin 11.5 g/dL (13.5-17.5); Lymphocytes Absolute Auto 1200 /uL (1100-4500); Lymphocytes Percent Auto 4.9 % (25-40); Mean Corpuscular HGB Conc 33.9 % (30-36); Mean Corpuscular Hemoglobin 29.5 PG (26-34); Mean Corpuscular Volume 87.1 fL (80-100); Monocytes Absolute Auto 2400 /uL (0-900); Monocytes Percent Auto 9.7 % (3-14); Neutrophils Absolute Auto 20600 /uL (1500-7000); Neutrophils Percent Auto 84.8 % (50-75); Platelet Count 740 X10^3/uL (150-400); Red Cell Distribution Width 13.8 % (11.6-14.8); White Blood Cell Count 24.3 X10^3/uL (4.5-11.0)
[2023-07-29 23:49] LABS: Lactate (Lactic Acid) 0.8 mmol/L (0.7-2.1)
[2023-07-29 23:50] LABS: Alanine Aminotransferase 50 IU/L (<50); Albumin 3.9 g/dL (3.5-5.0); Albumin Globulin Ratio 1.2 (1.0-2.8); Alkaline Phosphatase 123 U/L (38-126); Aspartate Aminotransferase 29 IU/L (17-59); BUN Creatinine Ratio 19.1 (6-22); Bilirubin Total 0.8 mg/dL (0.2-1.3); Blood Urea Nitrogen 13 mg/dL (9-20); Calcium 9.9 mg/dL (8.4-10.2); Carbon Dioxide 25 mmol/L (22-32); Chloride 101 mmol/L (98-107); Estimated Glomerular Filt Rate > 60 mL/min (>60); Globulin 3.3 g/dL (1.7-4.1); Glucose 133 mg/dL (70-100); HEMOLYSIS < 15 (0-50); Lipase 100 U/L (23-300); Potassium 3.9 mmol/L (3.4-5.1); Sodium 133 mmol/L (137-145); Total Protein 7.2 g/dL (6.3-8.2)
[2023-07-30] VITALS (34 sets, daily range): BP systolic 95–128; BP diastolic 55–75; PULSE 52–92; RESP 12–22; TEMP 36.1–37.2; O2SAT 95–99; BMI 24.6; BMI 24.5
[2023-07-30 00:06] LABS: Procalcitonin 0.13 ng/mL (<0.5)
[2023-07-30] MEDS: SODIUM CHLORIDE 0.9% 1,000 ML 1000 ML IV ×2 (00:06→00:46)
--- NOTE | 2023-07-30 00:07 | ED_ITS ---
HPI - General Adult General Chief complaint: Abdominal Pain Stated complaint: surg site leaking Time Seen by Provider: 07/29/23 23:21 Source: patient Mode of arrival: EMS History of Present Illness HPI narrative: 42-year-old gentleman with a history of recurrent uncomplicated diverticulitis admitted to the hospital on July 12 with complicated diverticulitis with abscess, treated with antibiotics for approximately a week no significant improvement, surgical consultation obtained and he underwent surgical intervention, sigmoid colectomy, mobilization of splenic flexure, drainage of intra-abdominal abscess, placement of abdominal wall mesh all on July 16. He was eventually discharged from the hospital on July 20, with a note made of slightly elevated leukocytosis but significant clinical improvement and discharge home was felt to be safe. He was discharged home with 10 additional days of Augmentin and appropriate pain medication. He reports that tonight he rolled over in bed and felt that his shirt was wet noted his incision site was leaking foul-smelling fluid. Comes in for further evaluation. Does not note any fevers but does note that he has been having increasing overall weakness and myalgias. No cough, chest pain, no diarrhea or bloody stool Related Data Previous Rx's Medication Instructions Recorded ondansetron 4 mg disintegrating 4 mg PO Q6H PRN nausea and 07/09/23 tablet vomiting #14 tabs oxycodone 10 mg tablet 10 mg PO Q3HR PRN Pain, Severe 07/15/23 (7-10) #20 tabs oxycodone 10 mg tablet 10 mg PO Q4-6H PRN pain #20 tabs 07/25/23 Allergies Allergy/AdvReac Type Severity Reaction Status Date / Time No Known Drug Allergies Allergy Verified 07/12/23 18:47 Review of Systems Review of Systems Narrative: Pertinent positive and negative findings as per HPI Patient History Medical History Low back strain History of gout History of kidney stones History of diverticulitis Family History Father Cancer Uncle Diabetes mellitus Grandfather Congestive heart failure Social History household members: spouse and children Smoking Status: Current every day smoker Tobacco: How many years used: 18 quit status: considering quitting (I would like to talk to Celina about starting Chanitix if it is an option.) second hand exposure: Yes ('a little bit) alcohol intake: current substance use type: marijuana (I smoke marijuana every day. ) Smoking Status: Current every day smoker tobacco type: cigarettes and vaping alcohol intake frequency: a few times a week Alcohol type: beer Substance Use Type: marijuana Exam Initial Vital Signs Initial Vital Signs: Vital Signs Temperature 98.1 F 07/29/23 23:18 Pulse Rate 98 H 07/29/23 23:18 Respiratory Rate 18 07/29/23 23:18 Blood Pressure 120/67 07/29/23 23:18 Pulse Oximetry 98 07/29/23 23:18 Oxygen Delivery Method Room Air 07/29/23 23:18 General: Appears uncomfortable, slightly pale but no acute distress HEENT: Moist mucous membranes, normal sclera with reactive pupils, Respiratory: Lungs are clear to auscultation, no wheezing no rales no rhonchi. Full and symmetrical air movement Cardiac: Regular rate and rhythm no murmurs no bruits Abdomen: Soft, fullness just under the incision site. [place] are still in place. Drainage mid incision appreciated. Moderate tenderness without rebound or guarding throughout the rest of the abdomen Skin: Warm and dry, no rashes Neurologic: Grossly neurologically intact with no obvious asymmetries or abnormalities Extremities: No trauma, well perfused Psych: Cooperative, appropriate insight and affect Course Orders Ordered: ED Orders 07/29/23 23:22 CT abdomen pelvis w con Stat XR chest 1V Stat EKG-12 Lead Stat RT Consult Eval and Treat NOW 07/29/23 23:27 Complete Blood Count AUTO DIFF Stat Comprehensive Metabolic Panel Stat Lactate (Lactic Acid) Stat Lipase Stat PTT Partial Thromboplastin Khadar Stat Procalcitonin Stat Prothrombin Time INR Stat 07/29/23 23:56 Blood Culture Stat 07/30/23 01:05 Wound Culture and Gram Stain Stat Hydromorphone HCl (Hydromorphone 0.5 Mg Inj) 0.5 mg IV Q15MIN PRN PRN Reason: Pain, Last Admin: 07/30/23 01:46 Dose: 0.5 mg Documented By: MICHAEL Ondansetron HCl (Ondansetron 4 Mg/2 Ml Inj) 4 mg IV NOW PRN PRN Reason: Nausea And Vomiting Ondansetron HCl (Ondansetron 4 Mg Odt) 4 mg SL NOW PRN PRN Reason: Nausea And Vomiting Discontinued Medications Sodium Chloride (Normal Saline 0.9%) 1,000 mls @ 1,000 mls/hr IV BOLUS ONE Stop: 07/30/23 00:21 Last Infusion: 07/30/23 00:45 Dose: Infused Documented By: Admin: 07/30/23 00:06 Dose: 1,000 mls/hr Documented By: MICHAEL Sodium Chloride (Normal Saline 0.9%) 1,000 mls @ 1,000 mls/hr IV BOLUS ONE Stop: 07/30/23 00:29 Last Infusion: 07/30/23 02:12 Dose: Infused Documented By: Admin: 07/30/23 00:46 Dose: 1,000 mls/hr Documented By: MICHAEL Ondansetron HCl (Ondansetron 4 Mg/2 Ml Inj) 4 mg IV NOW ONE Stop: 07/29/23 23:31 Last Admin: 07/30/23 01:46 Dose: 4 mg Documented By: MICHAEL Vital Signs Vital signs: Vital Signs - 8 hr 07/29/23 23:18 07/30/23 01:18 07/30/23 01:30 Temperature 98.1 F Pulse Rate 98 H 83 Respiratory Rate 18 20 Blood Pressure 120/67 119/75 120/69 Pulse Oximetry 98 99 Oxygen Delivery Method Room Air 07/30/23 01:30 07/30/23 02:00 07/30/23 02:00 Temperature Pulse Rate 85 85 Respiratory Rate 19 22 Blood Pressure 121/62 Pulse Oximetry 99 Oxygen Delivery Method 07/30/23 02:10 07/30/23 02:10 Temperature Pulse Rate 84 Respiratory Rate 18 Blood Pressure 128/66 Pulse Oximetry 98 Oxygen Delivery Method Medical Decision Making Lab Data 07/29/23 23:27 07/29/23 23:27 Labs: Lab Results 07/29/23 Range/Units 23:27 WBC 24.3 H (4.5-11.0) X10^3/uL RBC 3.90 L (4.5-5.9) X10^6/uL Hgb 11.5 L (13.5-17.5) g/dL Hct 33.9 L (41-53) % MCV 87.1 (80-100) fL MCH 29.5 (26-34) PG MCHC 33.9 (30-36) % RDW 13.8 (11.6-14.8) % Plt Count 740 H (150-400) X10^3/uL Neut % (Auto) 84.8 H (50-75) % Lymph % (Auto) 4.9 L (25-40) % [place] % (Auto) 9.7 (3-14) % Eos % (Auto) 0.2 L (2-4) % Baso % (Auto) 0.4 (0-2) % Neut # (Auto) 19915 H (2840-3294) /uL Lymph # (Auto) 1200 (2537-3773) /uL [place] # (Auto) 2400 H (0-900) /uL Eos # (Auto) 100 (0-450) /uL Baso # (Auto) 100 (0-100) /uL PT 16.0 H (9.4-12.5) SECONDS INR 1.4 H (0.9-1.3) APTT 38 H (25.1-36.5) SECONDS Sodium 133 L (137-145) mmol/L Potassium 3.9 (3.4-5.1) mmol/L Chloride 101 (98-107) mmol/L Carbon Dioxide 25 (22-32) mmol/L BUN 13 (9-20) mg/dL Creatinine 0.68 (0.66-1.25) mg/dL Estimated GFR > 60 (>60) mL/min BUN/Creatinine Ratio 19.1 (6-22) Glucose 133 H (70-100) mg/dL Lactate 0.8 (0.7-2.1) mmol/L Calcium 9.9 (8.4-10.2) mg/dL Total Bilirubin 0.8 (0.2-1.3) mg/dL AST 29 (17-59) IU/L ALT 50 H (<50) IU/L Alkaline Phosphatase 123 (38-126) U/L Total Protein 7.2 (6.3-8.2) g/dL Albumin 3.9 (3.5-5.0) g/dL Globulin 3.3 (1.7-4.1) g/dL Albumin/Globulin Ratio 1.2 (1.0-2.8) Lipase 100 (23-300) U/L Procalcitonin 0.13 (<0.5) ng/mL Urine Dip Bedside Urine Glucose Negative Bedside Urine Bilirubin - Negative Bedside Urine Ketone - Negative Urine Specific [place] 1.010 Bedside Urine Occult Blood - Negative Bedside Urine pH 6.0 Bedside Urine Protein - Negative Bedside Urine Urobilinogen - Negative Bedside Urine Nitrite - Negative Bedside Urine Leukocytes - Negative Esterase Point of care testing: Urine Dip Bedside Urine Glucose Negative Bedside Urine Bilirubin - Negative Bedside Urine Ketone - Negative Urine Specific [place] 1.010 Bedside Urine Occult Blood - Negative Bedside Urine pH 6.0 Bedside Urine Protein - Negative Bedside Urine Urobilinogen - Negative Bedside Urine Nitrite - Negative Bedside Urine Leukocytes - Negative Esterase Imaging Data CT scan - abdomen/pelvis: Radiologist's Impression: PROCEDURE: CT ABDOMEN PELVIS W CON INDICATIONS: incision draining/pain TECHNIQUE: After the administration of intravenous contrast, axial sections acquired from the lung bases to the pubic symphysis. Coronal and sagittal reformats were performed. For radiation dose reduction, the following was used: automated exposure control, adjustment of mA and/or kV according to patient size. COMPARISON: [facility], CT, CT ABDOMEN PELVIS W CON, 07/15/2023, 16:16. FINDINGS: Image quality: Diagnostic. Lower Chest: Bibasilar atelectasis. ABDOMEN: Liver: No solid mass. Gallbladder: No radiopaque gallstones or wall thickening. Biliary ducts: No biliary dilation. Pancreas: No ductal dilation. Spleen: Size is within normal limits. Adrenal Glands: No adrenal nodules. Kidneys and Ureters: No hydronephrosis. Small nonobstructing right kidney stones x2. No solid mass. No complex renal cystic lesion which requires follow up. Stomach and Bowel: Sigmoid colon anastomosis. Somewhat prominent stool in the right colon. The appendix is not dilated. Multiple dilated loops of small bowel which are fluid-filled. The stomach is not distended. Stranding in the pelvis near the site of prior inflammation. Peritoneum: No abnormal intraperitoneal fluid. No free air. Ventral Wall: Ventral abdominal wall staple line. Subcutaneous fluid collection measuring 14.6 x 8.9 x 3.6 cm. There are few areas of increased density within the collection. Scattered foci of gas. No hernia. Abdominal Nodes: No retroperitoneal or mesenteric adenopathy by size criteria. Vessels: Aorta and inferior vena cava are normal in size. PELVIS: Pelvic Organs: Unremarkable. Bladder: No bladder wall thickening, accounting for underdistention. Pelvic Nodes: No enlarged lymph nodes. Miscellaneous: No inguinal hernias are seen. Bones: No aggressive osseous abnormality. IMPRESSION: 1. Subcutaneous fluid collection deep to the ventral abdominal wall staple line measuring 14.6 cm in length. 2. Prominent loops of small bowel. Prominent stool in the right colon. No discrete transition point identified. Findings could be due to adynamic ileus. 3. Sigmoid colon anastomosis. Decreased inflammatory change in the this region. 4. Small nonobstructing right kidney stones. Dictated by: Raheem Bautista M.D. on 07/30/2023 at 1:36 MDM Narrative Medical decision making narrative: CC: Purulent drainage from surgical site Complicating co-morbidities: Complicated diverticulitis with abscess and sigmoid colectomy on 07/16. Currently still on Augmentin Data collected from: patient Medical records reviewed: Please see HPI for summary of hospitalization for diverticulitis with abscess and surgical intervention. Differential considered: Superficial abscess, deeper abscess, fistula Exam documented above, pertinent findings include: Patient has moderate abdominal tenderness but does not have an acute surgical abdomen. There is some fullness just below the incision site itself and the patient describes the initial release of purulence as similar to ?peeing?. Lab Test results independently reviewed as above. Pertinent findings: CBC shows leukocytosis at 24.3 1000 with 85% neutrophils. Chronic stable anemia and platelets 740. Chemistries show normal renal function. No other significant abnormality Procalcitonin is low suggesting absence long-term infection Lipase is appropriate Imaging studies independently reviewed: CXR is unremarkable Consultations:Discussed with Dr Riddle. Will admit the patient. Treatments: Fluids, Zosyn started, Dilaudid and Zofran for pain control Procedure: After a dose of parenteral Dilaudid, harpreet are removed from the area of suture breakdown and drainage. Approximately 120 cc of purulence drained out. The wound is still draining slightly. There is not significant erythema/cellulitis surrounding the area. Wound culture has been sent. Discussion: 42-year-old gentleman with complex diverticulitis with abscess and sigmoid colectomy still with sutures in place 2 doses of Augmentin left to complete comes in with spontaneous drainage and CT scan revealing Subcutaneous fluid collection deep to the ventral abdominal wall staple line measuring 14.6 cm in length, much of which has now been superficially drained. I did not take part the entire staple line nor irrigate. CT scan also notes Prominent loops of small bowel. Prominent stool in the right colon. No discrete transition point identified. Currently not showing signs of sepsis. Patient is comfortable. Transition orders are written Discharge Plan Departure Patient Disposition: Admitted as Observation Clinical Impression: Abscess of postoperative wound of abdominal wall Prescriptions: No Action oxycodone 10 mg tablet 10 mg PO Q4-6H PRN (Reason: pain) Qty: 20 0RF ondansetron 4 mg tablet,disintegrating 4 mg PO Q6H PRN (Reason: nausea and vomiting) Qty: 14 0RF oxycodone 10 mg Tablet 10 mg PO Q3HR PRN (Reason: Pain, Severe (7-10)) Qty: 20 0RF Rx Instructions: not picked up Referrals: Neri Hernandez DO [Primary Care Provider] -
[2023-07-30] MEDS: ONDANSETRON 4 MG/2 ML INJ IV ×2 (01:46→16:57)
[2023-07-30] MEDS: HYDROMORPHONE 0.5 MG INJ IV ×6 (01:46→22:53)
[2023-07-30] MEDS: SODIUM CHLORIDE 0.9% 1,000 ML 125 ML IV ×3 (03:15→21:33)
--- NOTE | 2023-07-30 09:23 | PM.HP.1 ---
History of Present Illness History of Present Illness Date Patient Seen: 07/30/23 Time Patient Seen: 09:23 Chief complaint: surg site leaking Narrative: 42-year-old man 2 weeks status post emergent sigmoid colectomy for perforated diverticulitis with primary anastomosis. Presented to the emergency department at [facility] last night with abdominal pain and spontaneous drainage of purulent material from the midline wound. CT abdomen pelvis demonstrates a abdominal wall fluid collection no intra-abdominal abnormality. At admission WBC 24 remainder of laboratory studies unremarkable. Multiple risk factors for postoperative infection including active tobacco use, emergent nature of case and inability to prep the colon prior to surgery. Feels improved since admission. [facility] Medical History Low back strain History of gout History of kidney stones History of diverticulitis Family History Father Cancer Uncle Diabetes mellitus Grandfather Congestive heart failure Social History household members: spouse and children Smoking Status: Current every day smoker Tobacco: How many years used: 18 quit status: considering quitting (I would like to talk to Celina about starting Chanitix if it is an option.) second hand exposure: Yes ('a little bit) alcohol intake: current substance use type: marijuana (I smoke marijuana every day. ) Meds Home Medications and Allergies Home Medications Medication Instructions Recorded Confirmed Type ondansetron 4 mg disintegrating 4 mg PO Q6H PRN nausea and 07/09/23 07/13/23 Rx tablet vomiting #14 tabs oxycodone 10 mg tablet 10 mg PO Q3HR PRN Pain, Severe 07/15/23 07/17/23 Rx (7-10) #20 tabs oxycodone 10 mg tablet 10 mg PO Q4-6H PRN pain #20 tabs 07/25/23 Rx Allergies Allergy/AdvReac Type Severity Reaction Status Date / Time No Known Drug Allergies Allergy Verified 07/12/23 18:47 Exam Vital Signs (past 8 hours): - 07/30/23 01:30 07/30/23 01:30 07/30/23 02:00 Pulse Rate 85 Respiratory Rate 19 Blood Pressure 120/69 121/62 Pulse Oximetry 99 07/30/23 02:00 07/30/23 02:10 07/30/23 02:10 Pulse Rate 85 84 Respiratory Rate 22 18 Blood Pressure 128/66 Pulse Oximetry 98 07/30/23 02:30 07/30/23 02:30 07/30/23 03:00 Pulse Rate 63 Respiratory Rate 12 Blood Pressure 113/62 105/59 L Pulse Oximetry 96 07/30/23 03:00 07/30/23 03:30 07/30/23 03:30 Pulse Rate 61 62 Respiratory Rate 15 15 Blood Pressure 103/61 Pulse Oximetry 97 96 07/30/23 04:00 07/30/23 04:00 07/30/23 04:30 Pulse Rate 58 L 68 Respiratory Rate 18 15 Blood Pressure 108/59 L Pulse Oximetry 96 98 07/30/23 04:30 07/30/23 05:00 07/30/23 05:00 Pulse Rate 58 L Respiratory Rate 13 Blood Pressure 104/60 109/62 Pulse Oximetry 97 07/30/23 05:30 07/30/23 05:30 07/30/23 06:00 Pulse Rate 58 L 61 Respiratory Rate 14 14 Blood Pressure 100/57 L Pulse Oximetry 97 98 07/30/23 06:00 07/30/23 06:30 07/30/23 06:30 Pulse Rate 68 Respiratory Rate 15 Blood Pressure 98/55 L 104/60 Pulse Oximetry 98 07/30/23 07:00 07/30/23 07:00 07/30/23 07:30 Pulse Rate 77 69 Respiratory Rate 12 12 Blood Pressure 105/56 L Pulse Oximetry 98 99 07/30/23 07:30 07/30/23 08:00 07/30/23 08:00 Pulse Rate 78 Respiratory Rate 13 Blood Pressure 108/72 101/56 L Pulse Oximetry 98 07/30/23 08:30 07/30/23 08:30 07/30/23 09:00 Pulse Rate 63 Respiratory Rate 13 Blood Pressure 101/58 L 106/64 Pulse Oximetry 98 07/30/23 09:00 Pulse Rate 67 Respiratory Rate 12 Blood Pressure Pulse Oximetry 99 Oxygen Delivery Method Room Air Narrative Exam Narrative: General adult man alert oriented no acute distress Chest nonlabored respiration Abdomen midline wound with serosanguineous drainage malodorous. Extremities warm well perfused Objective Labs 07/29/23 23:27 07/29/23 23:27 Labs: Laboratory Results - last 24 hr 07/29/23 23:27 WBC 24.3 H RBC 3.90 L Hgb 11.5 L Hct 33.9 L MCV 87.1 MCH 29.5 MCHC 33.9 RDW 13.8 Plt Count 740 H Neut % (Auto) 84.8 H Lymph % (Auto) 4.9 L [place] % (Auto) 9.7 Eos % (Auto) 0.2 L Baso % (Auto) 0.4 Neut # (Auto) 53666 H Lymph # (Auto) 1200 [place] # (Auto) 2400 H Eos # (Auto) 100 Baso # (Auto) 100 PT 16.0 H INR 1.4 H APTT 38 H Sodium 133 L Potassium 3.9 Chloride 101 Carbon Dioxide 25 BUN 13 Creatinine 0.68 Estimated GFR > 60 BUN/Creatinine Ratio 19.1 Glucose 133 H Lactate 0.8 Calcium 9.9 Total Bilirubin 0.8 AST 29 ALT 50 H Alkaline Phosphatase 123 Total Protein 7.2 Albumin 3.9 Globulin 3.3 Albumin/Globulin Ratio 1.2 Lipase 100 Procalcitonin 0.13 Assessment & Plan Assessment and plan (1) Abscess of postoperative wound of abdominal wall: Status: Acute Assessment & Plan narrative: 42-year-old man 2 weeks status post emergent sigmoid colectomy for perforated diverticulitis with abscess of the abdominal wall. CT abdomen pelvis reviewed no intra-abdominal abnormality. Recommended we proceed to the operating room for incision and drainage of abdominal wound with washout and placement of possible wound VAC. overview of the operation discussed. Risks benefits alternatives reviewed. -okay for clears until noon -Zosyn -or [address]
[2023-07-30] MEDS: PIPERACILLIN/TAZO 4.5 GM in SODIUM CHLORIDE 0.9% 100 ML IV ×2 (09:45→16:00)
[2023-07-30] MEDS: MORPHINE 2 MG/ML INJ IV (12:17)
[2023-07-30] MEDS: LACTATED RINGERS 1,000 ML 42 ML IV (14:51)
[2023-07-30] MEDS: ACETAMINOPHEN 325 MG TABLET 975 MG PO (14:53)
--- NOTE | 2023-07-30 16:08 | SUR.OPER ---
Supine on padded OR bed, head on pillow, arms secured on padded arm boards at <90 degrees abduction, legs uncrossed, safety belt at thigh, tape over blanket over lower legs.
[2023-07-30] MEDS: BUPIVACAINE 0.25% (PF) VIAL 30 ML INJ (16:17)
--- NOTE | 2023-07-30 16:28 | SUR.OPER ---
V.A.C #[id number] applied to patient and one piece of black foam was used inside the patient. Suction set to continuous low 125mmhg and draining.
--- NOTE | 2023-07-30 16:54 | PM.OP.1 ---
Operative Date/Time/Diagnoses Date of procedure: 07/30/23 Time of procedure: 16:54 Pre-op diagnosis: abdominal wall abscess Post-op diagnosis: same Procedure & Clinicians Procedure: Incision and drainage of abdominal wall abscess Application of negative pressure dressing Same procedure as scheduled: Yes Indications: 42M 2 weeks sp colectomy for perforated diverticulitis with a midline wound infection Surgeon: Junaid Garcia Click Yes if Unassisted: Yes Anesthesia Type: General Operative Notes Findings: Purulent material within subcutaneous tissue. Fascia intact. Estimated Blood Loss (mL): 20 Procedure in detail: Patient brought to the operating room. Anesthesia induced and intubated with LMA. Prepped and draped sterile fashion. Time out performed. Midline incision opened. Anterior fascia intact with Phasix mesh in place. Purulent drainage removed. 3L pulse lavage. Upper midline skin closed with harpreet. Single piece of black foam placed into wound. Emerged from anesthesia transferred to recovery in stable condition. Sponge and instrument count correct x 2. Complications: none Post-operative Condition: stable Disposition: Acute Care
[2023-07-30] MEDS: hydrOXYzine 50 MG/ML INJ IM (16:57)
[2023-07-30] MEDS: OXYCODONE IR 5 MG TABLET PO (16:58)
[2023-07-31] VITALS (9 sets, daily range): BP systolic 111–120; BP diastolic 59–75; PULSE 58–80; RESP 14–18; TEMP 36.1–36.7; O2SAT 98–100
[2023-07-31] MEDS: MORPHINE 2 MG/ML INJ IV ×2 (02:55→07:54)
[2023-07-31] MEDS: OXYCODONE IR 5 MG TABLET PO (05:26)
[2023-07-31] MEDS: SODIUM CHLORIDE 0.9% 1,000 ML 125 ML IV (05:39)
[2023-07-31] MEDS: IBUPROFEN 600 MG TABLET PO (07:55)
[2023-07-31 08:13] LABS: Add Manual Diff / Slide Review NO; Basophils Absolute Auto 100 /uL (0-100); Basophils Percent Auto 0.9 % (0-2); Eosinophils Absolute Auto 200 /uL (0-450); Eosinophils Percent Auto 1.5 % (2-4); Hematocrit 31.2 % (41-53); Hemoglobin 10.3 g/dL (13.5-17.5); Lymphocytes Absolute Auto 1000 /uL (1100-4500); Lymphocytes Percent Auto 8.2 % (25-40); Mean Corpuscular Hemoglobin 29.2 PG (26-34); Mean Corpuscular Volume 88.5 fL (80-100); Monocytes Absolute Auto 1200 /uL (0-900); Monocytes Percent Auto 9.5 % (3-14); Neutrophils Absolute Auto 10300 /uL (1500-7000); Neutrophils Percent Auto 79.9 % (50-75); Platelet Count 628 X10^3/uL (150-400); Red Blood Cell Count 3.53 X10^6/uL (4.5-5.9); Red Cell Distribution Width 13.7 % (11.6-14.8); White Blood Cell Count 12.9 X10^3/uL (4.5-11.0)
[2023-07-31] MEDS: PIPERACILLIN/TAZO 3.375 GM in SODIUM CHLORIDE 0.9% 100 ML IV (08:45)
[2023-07-31] MEDS: OXYCODONE IR 10 MG TABLET PO ×3 (09:01→19:50)
--- NOTE | 2023-07-31 13:31 | DIET.CONS ---
Dietary Consultation Note Admission Date: 07/30/2023 03:48 Assessment: 42 y M admitted for abdominal wall abscess. Nutrition consulted for abdominal midline wound vac. Met with pt at bedside. Reports appetite has returned to normal since d/c after surgery 07/20. Has 10 g protein bars BID, an Ensure drink daily, snacks, hamburgers, etc since d/c from hospital. Did not like taste of trial Prasad. Only likes coffee flavored Ensures. Reports foods tasting saltier. Ht: 165.1 cm Wt: 67 kg BMI: 24.6 UBW: 72.575 kg on 07/17/23 (-7.5% weight loss in 1 month, severe) Last BM: 07/29/23 (07/30/23 14:49) MNA: Haim Score: 20 Diet: 07/30/23 Dinner General (Regular) Diet Diet Modifications: Food Texture: Level 7 - Regular Liquid Consistency: Level 0 - Thin Nutrition Percent Meal Consumed 50% 07/31/23 12:52 Percent Meal Consumed 50% 07/31/23 08:00 Percent Meal Consumed 50% 07/30/23 18:00 Labs: RBC 3.53 X10^6/uL (4.5-5.9) L 07/31/23 07:50 Hgb 10.3 g/dL (13.5-17.5) L 07/31/23 07:50 Hct 31.2 % (41-53) L 07/31/23 07:50 Creatinine 0.68 mg/dL (0.66-1.25) 07/29/23 23:27 Lactate 0.8 mmol/L (0.7-2.1) 07/29/23 23:27 Nutrition Diagnosis: Increased protein needs r/t to wound healing aeb abdominal wound, 7.5% unintended weight loss in 1 month, severe Interventions: 1. Modified protein intake: -Discussed importance of protein for healing, encouraged continued intake of adequate protein and energy intake daily -Protein smoothie/supplement if po intake remains <75% EER: 7910-2513 (25-28 kcals/kg per BMI) 80-85 g pro (1.25 g/kg per wound) Monitoring/Evaluations: po intakes Electronically Signed by: Kristen Romero 07/31/23 13:31 Clinical Dietitian [place] [phone]
--- NOTE | 2023-07-31 15:37 | CM.DANOTE ---
Initial DCP Assessment Note Pt is a 42 yo male, resident of [place], 2 weeks sp colectomy for perforated diverticulitis presents with a midline wound infection. According to Dr Garcia, patient will need to discharge with a wound vac. Patient is s/p washout out of abd infection and wound vac placed after this procedure. Microbiology still pending; it is anticipated that patient will discharge on po abx. Wound vac will need to be changed approx twice weekly. PCP: Neri Hernandez Payer: Bhaskar KHAN Met w/patient to review above. Patient appreciative and will wait for update re coordination of home wound vac and outpatient wound care/ HH RN for wound vac changes. In coordination throughout the day with Bal Barron P [phone] email: [email or web address], wound vac ordered, authorized and being coordinated for chipper delivery tonight. Clinical with wound measurements emailed to Bal; Bal emailed Dr Garcia e script which Radha signed and returned. In addition, coordination throughout the day with wound care center; KSENIA Howard w/ wound care has kindly maneuvered a spot for patient to establish care next week; ThursdayAugust 04, appt time 1415. Emailed referral to [facility] Michele , Leny Saucedo <[email or web address]> asking if patient could get HH RN to assist with wound vac changes. Alpha ANNY reviewing now and will follow up. Plan: Discharge home as early as Thursday, wound vac likely to be delivered this evening to patient's bedside, wound care appt next Thu, Alpha ANNY RN needed to supplement wound vac changes (wound care appt is not available twice next week). CM team following closely for coordination. YAW Lau Discharge Planning/Care Management CM Discharge Assessment Start: 07/31/23 15:33 Freq: Status: Active Protocol: Document 07/31/23 15:33 ANJEL (Rec: 07/31/23 15:37 ANJEL [id number]) Discharge Planning Assessment Assigned Speeder Frame Tender YAW Peralta DPOA/Assigned Designee Name Yasmin العلي, spouse Contact Information [phone] Advance Directives? No History Provided By Patient,Medical Record Prior Living Arrangements House Household Members spouse,children Type of transporation used prior to Drives own vehicle admit Independent with ADL's Yes Is patient alert and oriented? Yes Patient/Family Preference Home with Home Health Barriers to Discharge No Comment Patient going home with wound vac Discharge Plan Home with Home Health Transportation Arrangement family Referrals Initiated Home Health,Other
--- NOTE | 2023-07-31 18:02 | PM.PNPO.1 ---
Subjective Subjective Date Patient Seen: 07/31/23 Time Patient Seen: 18:02 Interval history: Postoperative day 1 status post incision and drainage of abdominal wall abscess with washout wound VAC placement No acute overnight events Exam Vital Signs (past 8 hours): - 07/31/23 11:22 07/31/23 13:00 07/31/23 15:00 Temperature 97.8 F 97.0 F L Pulse Rate 61 71 Respiratory Rate 14 18 Blood Pressure 111/59 L 120/67 Pulse Oximetry 99 99 100 Oxygen Delivery Method Room Air Oxygen Delivery Method Room Air Oxygen Flow Rate 0 Narrative Exam Narrative: General adult man alert oriented no acute distress Abdomen soft appropriately tender to palpation. Wound VAC with scant serosanguineous output. Objective Labs 07/31/23 07:50 07/29/23 23:27 Labs: Laboratory Results - last 24 hr 07/31/23 07:50 WBC 12.9 H RBC 3.53 L Hgb 10.3 L Hct 31.2 L MCV 88.5 MCH 29.2 MCHC 33.0 RDW 13.7 Plt Count 628 H Neut % (Auto) 79.9 H Lymph % (Auto) 8.2 L [place] % (Auto) 9.5 Eos % (Auto) 1.5 L Baso % (Auto) 0.9 Neut # (Auto) 54474 H Lymph # (Auto) 1000 L [place] # (Auto) 1200 H Eos # (Auto) 200 Baso # (Auto) 100 PFSH Medical History Low back strain History of gout History of kidney stones History of diverticulitis Family History Father Cancer Uncle Diabetes mellitus Grandfather Congestive heart failure Social History household members: spouse and children Smoking Status: Current every day smoker Tobacco: How many years used: 18 quit status: considering quitting (I would like to talk to Celina about starting Chanitix if it is an option.) second hand exposure: Yes ('a little bit) alcohol intake: current substance use type: marijuana (I smoke marijuana every day. ) Assessment & Plan Post-op Postoperative Procedures: Procedures Operation Date: 07/30/23 15:45 Actual Procedure Side Surgeon p Incision and Drainage abdominal wall Junaid Garcia MD Postoperative status narrative: 42-year-old male after recent sigmoid colectomy for perforated diverticulitis with superficial wound infection. Postoperative day 1 status post I and D and washout. Anticipate discharge home tomorrow with wound VAC and p.o. antibiotics
[2023-07-31] MEDS: ACETAMINOPHEN 325 MG TABLET 650 MG PO (21:13)
[2023-08-01 01:10] VITALS: O2SAT 98
[2023-08-01] MEDS: OXYCODONE IR 10 MG TABLET PO (02:21)
[2023-08-01 05:00] VITALS: O2SAT 99
[2023-08-01 05:58] VITALS: BP 109/70; PULSE 58; RESP 16; TEMP 36.2; O2SAT 99
[2023-08-01 08:00] VITALS: BP 116/68; PULSE 60; RESP 18; TEMP 36.6; O2SAT 99
[2023-08-01 09:00] VITALS: O2SAT 99
[2023-08-01] MEDS: IBUPROFEN 600 MG TABLET PO (09:59)
--- NOTE | 2023-08-01 10:29 | PM.DS.1 ---
History of Present Illness History of Present Illness Date Patient Seen: 08/01/23 Time Patient Seen: 10:29 Chief complaint: surg site leaking Narrative: 42-year-old man 2 weeks status post emergent sigmoid colectomy for perforated diverticulitis with primary anastomosis. Presented to the emergency department at [facility] last night with abdominal pain and spontaneous drainage of purulent material from the midline wound. CT abdomen pelvis demonstrates a abdominal wall fluid collection no intra-abdominal abnormality. At admission WBC 24 remainder of laboratory studies unremarkable. Multiple risk factors for postoperative infection including active tobacco use, emergent nature of case and inability to prep the colon prior to surgery. Feels improved since admission. Discharge Providers Provider Date of admission: 07/30/23 03:48 Discharge Date: 08/01/23 Primary care physician: Neri Hernandez DO Consults: 07/31/23 09:54 Consult to Dietitian, Adult Routine Comment: Reason For Exam: abdominal midline wound vac Consult to Wound Care Routine Comment: [facility] 07/31/23 14:21 Consult to Home Health Routine Comment: Reason For Exam: Home health RN to assist with wound vac changes Discharge provider: Junaid Garcia MD Summary Hospital Course Discharge Diagnosis: Superficial wound infection Hospital Course: Patient was brought to the operating room July 29 underwent incision and drainage of abdominal wall abscess with wound VAC placement. He remained hospitalized on IV antibiotic therapy until wound cultures resulted demonstrating coli. He will be discharged home on 1 week course of ciprofloxacin. He has follow up with the wound care center established for August 04 for VAC change. Exam Vital Signs (past 8 hours): - 08/01/23 05:00 08/01/23 05:58 08/01/23 08:00 Temperature 97.2 F L 97.8 F Pulse Rate 58 L 60 Respiratory Rate 16 18 Blood Pressure 109/70 116/68 Pulse Oximetry 99 99 99 Oxygen Delivery Method Room Air Oxygen Flow Rate 08/01/23 09:00 Temperature Pulse Rate Respiratory Rate Blood Pressure Pulse Oximetry 99 Oxygen Delivery Method Room Air Oxygen Flow Rate 0 Oxygen Delivery Method Room Air Oxygen Flow Rate 0 Narrative Exam Narrative: General adult male alert oriented no acute distress Abdomen soft wound VAC holding suction. Extremities warm well perfused Objective Labs 07/31/23 07:50 07/29/23 23:27 [facility] Medical History Low back strain History of gout History of kidney stones History of diverticulitis Family History Father Cancer Uncle Diabetes mellitus Grandfather Congestive heart failure Social History household members: spouse and children Smoking Status: Current every day smoker Tobacco: How many years used: 18 quit status: considering quitting (I would like to talk to Celina about starting Chanitix if it is an option.) second hand exposure: Yes ('a little bit) alcohol intake: current substance use type: marijuana (I smoke marijuana every day. ) Discharge Plan Discharge Plan Patient Disposition: Home Provider Discharge Comment: -okay to shower with wound VAC in place -follow up ThursdayAugust 04 for wound VAC change at [facility] -Do not submerge wounds in water until seen in follow-up. -No lifting >10 lbs x 4 weeks. -Walking only for exercise for 4 weeks. -No driving while taking narcotics. Discharge orders & Medications Prescriptions: New docusate sodium [Colace] 100 mg capsule 100 mg PO BID Qty: 30 0RF ciprofloxacin HCl 500 mg tablet 500 mg PO BID Qty: 14 0RF oxycodone 10 mg tablet 10 mg PO Q8H PRN (Reason: pain) Qty: 20 0RF acetaminophen [Tylenol] 325 mg capsule 650 mg PO QID PRN (Reason: pain) Qty: 60 0RF ibuprofen 200 mg tablet 400 mg PO Q6H Qty: 60 0RF Continued oxycodone 10 mg tablet 10 mg PO Q4-6H PRN (Reason: pain) Qty: 20 0RF ondansetron 4 mg tablet,disintegrating 4 mg PO Q6H PRN (Reason: nausea and vomiting) Qty: 14 0RF Follow up/Referrals: Juan Young MD [Physician] - 08/12/23 Junaid Garcia MD [Physician] - 2 Weeks Diet/Activity/Treatments Diet: Diet as Tolerated Skin/Wound/Dressing Care Report to your healthcare provider any signs of infection, such as:: chills, fever, increased pain, unusual drainage and unusual redness Visit Report/Discharge Packet Stand Alone Forms: Patient Portal/API, Stroke Signs & Symptoms Discharge Data Primary Care Provider: Neri Hernandez Attending Provider: Harrison Riddle Admit Date/Time: 07/30/23 03:48
[2023-08-01 12:00] VITALS: BP 114/71; PULSE 69; RESP 18; TEMP 36.2; O2SAT 98
[2023-08-01] MEDS: MORPHINE 4 MG/ML INJ IV (12:00)
[2023-08-01] MEDS: LIDOCAINE JELLY 2% 5 ML 1 APPLIC TOP (12:03)
--- NOTE | 2023-08-01 12:12 | CM.DPC ---
Addendum entered by Geno Hylton R.N. 08/01/23 15:06: Vani at [facility] inquired if patient was still here, let her know that patient has discharged, have been attempting to fax DC Summary, but faxes are not transmitting out. Let her know that Twila was emailed, she is not in the office today. Vani is not sure if they can see patient prior to Wed, which is when he goes to [facility], but will attempt to see if they can, otherwise, they will see him after his wound clinic appointment. Original Note: DCP Cont: Met with Dr. Garcia, indicated that wound vac is here in room. He is discharging patient. Sent an email to Twila at [facility], and left her a message that he is discharging home today. Did see an email from Twila at [facility] that patient may have a 20% co-pay for home health services. Did update patient on this, so he is prepared. Patient is also to be seen at [facility] on Thu, will leave them a message that they are discharging today. Will fax DC Summary to [facility]. Geno Hylton RN/[employer]
== END 2023-08-01 13:07 | disposition home or self-care (01) ==
LOC: ED 07-30 02:50 → AC 07-30 03:48
PROVIDERS: Surgery; Admitting Provider Surgery; Emergency Provider Emergency Medicine; PCP Family Medicine; Referring Provider Emergency Medicine; Visit Provider Surgery
PROC: (CPT 10060; principal; 2023-07-30 15:45)
DX: T81.49XA Infection following a procedure, other surgical site, initial encounter (principal); F17.210 Nicotine dependence, cigarettes, uncomplicated
CPT/HCPCS: 10060; 36415; 71045; 74177; 80053; 81003; 83605; 83690; 84145; 85025; 85610; 85730; 87040; 87070; 87075; 87077; 87185; 87186; 87205; 96365; 96366; 96375; 96376; 99284; 99406; G0378; J0330; J1170; J1885; J2270; J2405; J2543; J2704; J3010; J3410; Q9967

== ENCOUNTER → 2023-08-05 14:12 | Outpatient (CLI) | payer OTHER, SELFPAY ==
[2023-07-30 11:17] VITALS: BMI 24.6
== END ==
PROVIDERS: PCP Family Medicine; Referring Provider Surgery; Visit Provider Surgery
DX: T81.89XA Other complications of procedures, not elsewhere classified, initial encounter (principal); S31.109A Unspecified open wound of abdominal wall, unspecified quadrant without penetration into peritoneal cavity, initial encounter; F17.210 Nicotine dependence, cigarettes, uncomplicated
CPT/HCPCS: 11042; 97605; 99203; 99212

== ENCOUNTER → 2023-08-07 15:00 | Outpatient (CLI) | payer OTHER, SELFPAY ==
[2023-07-30 11:17] VITALS: BMI 24.6
== END ==
PROVIDERS: PCP Family Medicine; Referring Provider Surgery; Visit Provider Physician Assistant
DX: T81.89XA Other complications of procedures, not elsewhere classified, initial encounter (principal); S31.109A Unspecified open wound of abdominal wall, unspecified quadrant without penetration into peritoneal cavity, initial encounter
CPT/HCPCS: 97605

== ENCOUNTER → 2023-08-12 14:53 | Outpatient (CLI) | payer OTHER, SELFPAY ==
[2023-07-30 11:17] VITALS: BMI 24.6
== END ==
LOC: WC 14:53
PROVIDERS: PCP Family Medicine; Referring Provider Surgery; Visit Provider Surgery
DX: T81.89XA Other complications of procedures, not elsewhere classified, initial encounter (principal); S31.109A Unspecified open wound of abdominal wall, unspecified quadrant without penetration into peritoneal cavity, initial encounter; F17.210 Nicotine dependence, cigarettes, uncomplicated
CPT/HCPCS: 11042

== ENCOUNTER → 2023-08-14 10:50 | Outpatient (CLI) | payer OTHER, SELFPAY ==
[2023-07-30 11:17] VITALS: BMI 24.6
== END ==
LOC: WC 10:50
PROVIDERS: PCP Family Medicine; Referring Provider Surgery; Visit Provider Physician Assistant
DX: T81.89XA Other complications of procedures, not elsewhere classified, initial encounter (principal); S31.109A Unspecified open wound of abdominal wall, unspecified quadrant without penetration into peritoneal cavity, initial encounter
CPT/HCPCS: 99213

== ENCOUNTER → 2023-08-19 10:16 | Outpatient (CLI) | payer OTHER, SELFPAY ==
[2023-07-30 11:17] VITALS: BMI 24.6
== END ==
PROVIDERS: PCP Family Medicine; Referring Provider Family Medicine; Visit Provider Surgery
DX: T81.89XA Other complications of procedures, not elsewhere classified, initial encounter (principal); S31.109A Unspecified open wound of abdominal wall, unspecified quadrant without penetration into peritoneal cavity, initial encounter; F17.210 Nicotine dependence, cigarettes, uncomplicated
CPT/HCPCS: 11042

== ENCOUNTER → 2023-09-02 11:17 | Outpatient (CLI) | payer OTHER, SELFPAY ==
[2023-07-30 11:17] VITALS: BMI 24.6
== END ==
PROVIDERS: PCP Family Medicine; Referring Provider Surgery; Visit Provider Surgery
DX: T81.89XA Other complications of procedures, not elsewhere classified, initial encounter (principal); S31.109A Unspecified open wound of abdominal wall, unspecified quadrant without penetration into peritoneal cavity, initial encounter; L98.8 Other specified disorders of the skin and subcutaneous tissue; F17.210 Nicotine dependence, cigarettes, uncomplicated
CPT/HCPCS: 11042

== ENCOUNTER → 2023-09-16 14:48 | Outpatient (CLI) | payer OTHER, SELFPAY ==
[2023-07-30 11:17] VITALS: BMI 24.6
== END ==
LOC: WC 14:48
PROVIDERS: PCP Family Medicine; Referring Provider Surgery; Visit Provider Surgery
DX: T81.89XA Other complications of procedures, not elsewhere classified, initial encounter (principal); S31.109A Unspecified open wound of abdominal wall, unspecified quadrant without penetration into peritoneal cavity, initial encounter; L98.8 Other specified disorders of the skin and subcutaneous tissue; F17.210 Nicotine dependence, cigarettes, uncomplicated
CPT/HCPCS: 11042

== ENCOUNTER → 2023-09-30 14:34 | Outpatient (CLI) | payer OTHER, SELFPAY ==
[2023-07-30 11:17] VITALS: BMI 24.6
== END ==
PROVIDERS: PCP Family Medicine; Referring Provider Surgery; Visit Provider Surgery
DX: T81.89XA Other complications of procedures, not elsewhere classified, initial encounter (principal); S31.109A Unspecified open wound of abdominal wall, unspecified quadrant without penetration into peritoneal cavity, initial encounter; L98.8 Other specified disorders of the skin and subcutaneous tissue; F17.210 Nicotine dependence, cigarettes, uncomplicated
CPT/HCPCS: 97602; 99213

== ENCOUNTER → 2023-10-14 14:01 | Outpatient (CLI) | payer OTHER, SELFPAY ==
[2023-07-30 11:17] VITALS: BMI 24.6
== END ==
LOC: WC 14:03
PROVIDERS: PCP Family Medicine; Referring Provider Surgery; Visit Provider Nurse Practitioner Family
DX: T81.89XA Other complications of procedures, not elsewhere classified, initial encounter (principal); S31.109A Unspecified open wound of abdominal wall, unspecified quadrant without penetration into peritoneal cavity, initial encounter; L98.8 Other specified disorders of the skin and subcutaneous tissue; F17.210 Nicotine dependence, cigarettes, uncomplicated
CPT/HCPCS: 97602

== ENCOUNTER → 2023-10-26 15:07 | Outpatient (CLI) | payer OTHER, SELFPAY ==
[2023-07-30 11:17] VITALS: BMI 24.6
== END ==
LOC: WC 15:07
PROVIDERS: PCP Family Medicine; Referring Provider Surgery; Visit Provider Surgery
DX: T81.89XD Other complications of procedures, not elsewhere classified, subsequent encounter (principal); S31.109D Unspecified open wound of abdominal wall, unspecified quadrant without penetration into peritoneal cavity, subsequent encounter
CPT/HCPCS: 99212; 99213

== ENCOUNTER 2024-04-04 12:51 | Emergency (ER) | payer OTHER, SELFPAY ==
[2023-07-30 11:17] VITALS: BMI 24.6
[2024-04-04 13:01] VITALS: BP 120/70; PULSE 71; RESP 17; TEMP 36.6; O2SAT 98; BMI 26.6
--- NOTE | 2024-04-04 14:21 | EKG_ITS ---
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
[2024-04-04 14:49] LABS: Add Manual Diff / Slide Review NO; Basophils Absolute Auto 100 /uL (0-100); Basophils Percent Auto 0.5 % (0-2); Eosinophils Absolute Auto 100 /uL (0-450); Eosinophils Percent Auto 0.9 % (2-4); Hematocrit 44.2 % (41-53); Hemoglobin 14.9 g/dL (13.5-17.5); Lymphocytes Absolute Auto 1500 /uL (1100-4500); Lymphocytes Percent Auto 13.7 % (25-40); Mean Corpuscular HGB Conc 33.7 % (30-36); Mean Corpuscular Hemoglobin 30.6 PG (26-34); Mean Corpuscular Volume 90.8 fL (80-100); Monocytes Absolute Auto 1000 /uL (0-900); Monocytes Percent Auto 8.7 % (3-14); Neutrophils Absolute Auto 8400 /uL (1500-7000); Neutrophils Percent Auto 76.2 % (50-75); Platelet Count 271 X10^3/uL (150-400); Red Blood Cell Count 4.87 X10^6/uL (4.5-5.9); Red Cell Distribution Width 12.4 % (11.6-14.8)
[2024-04-04 15:00] LABS: Alanine Aminotransferase 30 IU/L (<50); Albumin 4.5 g/dL (3.5-5.0); Albumin Globulin Ratio 1.5 (1.0-2.8); Alkaline Phosphatase 66 U/L (38-126); Aspartate Aminotransferase 31 IU/L (17-59); Bilirubin Total 0.5 mg/dL (0.2-1.3); Blood Urea Nitrogen 21 mg/dL (9-20); Calcium 9.4 mg/dL (8.4-10.2); Carbon Dioxide 26 mmol/L (22-32); Chloride 103 mmol/L (98-107); Estimated Glomerular Filt Rate > 60 mL/min (>60); Globulin 3.1 g/dL (1.7-4.1); Glucose 100 mg/dL (70-100); HEMOLYSIS < 15 (0-50); Lipase 53 U/L (23-300); Potassium 4.2 mmol/L (3.4-5.1); Sodium 137 mmol/L (137-145); Total Protein 7.6 g/dL (6.3-8.2)
--- NOTE | 2024-04-04 15:08 | ED_ITS ---
HPI - Abdominal Pain <Sal Horvath PA-C - Last Filed: 04/04/24 16:30> General Chief Complaint: Abdominal Pain Stated Complaint: abd px x2 days, Hx colectemy 6 mos ago Time Seen by Provider: 04/04/24 14:24 Source: patient Mode of arrival: Ambulatory History of Present Illness HPI narrative: 43-year-old male with past medical history diverticulitis, status post colectomy, hyperlipidemia, gout present left upper quadrant pain that radiates back to the flank. Patient does have a history of kidney stones. Patient states that he has been having some trouble urinating since this pain started, describes it as difficult to get a steady stream of urine going. Patient endorses some nausea yesterday. Patient endorses chills. Patient denies fever, chest pain, shortness of breath, vomiting, dysuria, lightheadedness, dizziness, syncope. Related Data Previous Rx's Medication Instructions Recorded amoxicillin-potassium clavulanate 2 tab PO BID 5 days #20 tabs 04/04/24 1,000 mg-62.5 mg tablet,ext.rel 12hr (Augmentin XR) Allergies Allergy/AdvReac Type Severity Reaction Status Date / Time No Known Drug Allergies Allergy Verified 04/04/24 13:05 Review of Systems <Sal Horvath PA-C - Last Filed: 04/04/24 16:30> Constitutional Constitutional: Reports chills, Denies fatigue, Denies fever(s), Denies frequent falls, Denies lethargy and Denies weakness Eyes Eyes: Denies change in vision, Denies eye discharge, Denies irritation and Denies loss of vision ENT Ears, Nose, Mouth, and Throat: Denies change in voice, Denies dizziness, Denies neck pain, Denies sore throat and Denies throat swelling Cardiovascular Cardiovascular: Denies chest pain, Denies irregular heart rhythm, Denies lightheadedness, Denies palpitations, Denies dyspnea, Denies dyspnea on exertion and Denies orthopnea Respiratory Respiratory: Denies cough, Denies dyspnea, Denies dyspnea on exertion and Denies wheezing Gastrointestinal Gastrointestinal: Reports abdominal pain, Denies change in bowel habits, Denies diarrhea, Reports nausea and Denies vomiting Comments: L flank pain Musculoskeletal Musculoskeletal: Denies neck pain and Denies numbness Integumentary/Breasts Skin/Breast: Denies pruritus, Denies erythema, Denies rash and Denies wounds Neurologic Neurologic: Denies behavioral changes, Denies confusion, Denies dizziness, Denies frequent falls, Denies loss of vision, Denies numbness and Denies weakness Psychiatric Psychiatric: Denies anxiety, Denies behavioral changes, Denies confusion, Denies depression, Denies homicidal ideation and Denies suicidal ideation Endocrine Endocrine: Denies fatigue, Denies flushing and Denies palpitations Hematologic/Lymphatic Hematologic/Lymphatic: Denies easy bruising Allergic/Immunologic Allergic/Immunologic: Denies urticaria, Denies throat swelling and Denies wheezing Patient History <Sal Horvath PA-C - Last Filed: 04/04/24 16:30> Medical History Low back strain History of gout History of kidney stones History of diverticulitis Family History Father Cancer Uncle Diabetes mellitus Grandfather Congestive heart failure Social History household members: spouse and children Smoking Status: Current every day smoker Tobacco: How many years used: 18 quit status: considering quitting (I would like to talk to Celina about starting Chanitix if it is an option.) second hand exposure: Yes ('a little bit) alcohol intake: current substance use type: marijuana (I smoke marijuana every day. ) Smoking Status: Current every day smoker tobacco type: cigarettes and vaping alcohol intake frequency: a few times a month Alcohol type: beer Exam <Sal Horvath PA-C - Last Filed: 04/04/24 16:30> Narrative Exam Narrative: Const General:?cooperative, healthy appearing and comfortable [facility] Head:?normal to inspection Ears:?hearing grossly normal bilaterally Nose:?external nose normal Face and sinus:?normal facial exam and sinuses nontender Mouth:?oral mucosae normal Throat:?posterior oropharynx normal Eyes General:?appearance normal, both eyes and all related structures Neck Neck:?normal visual inspection and no lymphadenopathy noted Resp Effort & Inspection:?normal respiratory effort Auscultation:?clear to auscultation bilaterally Cardio Rate:?regular rate Rhythm:?regular rhythm GI Abdomen is soft,. Abdomen is mildly tender to palpation in the left upper quadrant. No CVA tenderness. Neuro General:?patient alert, patient awake and patient oriented x3 Initial Vital Signs Initial Vital Signs: Vital Signs Temperature 98 F 04/04/24 13:01 Pulse Rate 71 04/04/24 13:01 Respiratory Rate 17 04/04/24 13:01 Blood Pressure 120/70 04/04/24 13:01 Pulse Oximetry 98 04/04/24 13:01 Oxygen Delivery Method Room Air 04/04/24 13:01 <Eugenie Jimenez DO - Last Filed: 04/08/24 09:14> Initial Vital Signs Initial Vital Signs: Vital Signs Temperature 98 F 04/04/24 13:01 Pulse Rate 71 04/04/24 13:01 Respiratory Rate 17 04/04/24 13:01 Blood Pressure 120/70 04/04/24 13:01 Pulse Oximetry 98 04/04/24 13:01 Oxygen Delivery Method Room Air 04/04/24 13:01 Course <Sal Horvath PA-C - Last Filed: 04/04/24 16:30> Orders Ordered: Discontinued Medications Ondansetron HCl (Ondansetron 4 Mg/2 Ml Inj) 4 mg IV NOW PRN PRN Reason: Nausea And Vomiting Ondansetron HCl (Ondansetron 4 Mg Odt) 4 mg PO NOW PRN PRN Reason: Nausea And Vomiting Vital Signs Vital signs: Vital Signs - 8 hr 04/04/24 13:01 04/04/24 15:32 Temperature 98 F Pulse Rate 71 58 L Respiratory Rate 17 16 Blood Pressure 120/70 129/74 Pulse Oximetry 98 100 Oxygen Delivery Method Room Air Room Air <Eugenie Jimenez DO - Last Filed: 04/08/24 09:14> Orders Ordered: Discontinued Medications Ondansetron HCl (Ondansetron 4 Mg/2 Ml Inj) 4 mg IV NOW PRN PRN Reason: Nausea And Vomiting Ondansetron HCl (Ondansetron 4 Mg Odt) 4 mg PO NOW PRN PRN Reason: Nausea And Vomiting Vital Signs Vital signs: Vital Signs - 8 hr 04/04/24 13:01 04/04/24 15:32 Temperature 98 F Pulse Rate 71 58 L Respiratory Rate 17 16 Blood Pressure 120/70 129/74 Pulse Oximetry 98 100 Oxygen Delivery Method Room Air Room Air MDM - Abdominal Pain <Sal Horvath PA-C - Last Filed: 04/04/24 16:30> Lab Data 04/04/24 14:41 04/04/24 14:41 Labs: Lab Results 04/04/24 Range/Units 14:41 WBC 11.0 (4.5-11.0) X10^3/uL RBC 4.87 (4.5-5.9) X10^6/uL Hgb 14.9 (13.5-17.5) g/dL Hct 44.2 (41-53) % MCV 90.8 (80-100) fL MCH 30.6 (26-34) PG MCHC 33.7 (30-36) % RDW 12.4 (11.6-14.8) % Plt Count 271 (150-400) X10^3/uL Neut % (Auto) 76.2 H (50-75) % Lymph % (Auto) 13.7 L (25-40) % [place] % (Auto) 8.7 (3-14) % Eos % (Auto) 0.9 L (2-4) % Baso % (Auto) 0.5 (0-2) % Neut # (Auto) 8400 H (6177-4823) /uL Lymph # (Auto) 1500 (5430-7303) /uL [place] # (Auto) 1000 H (0-900) /uL Eos # (Auto) 100 (0-450) /uL Baso # (Auto) 100 (0-100) /uL Sodium 137 (137-145) mmol/L Potassium 4.2 (3.4-5.1) mmol/L Chloride 103 (98-107) mmol/L Carbon Dioxide 26 (22-32) mmol/L BUN 21 H (9-20) mg/dL Creatinine 0.84 (0.66-1.25) mg/dL Estimated GFR > 60 (>60) mL/min BUN/Creatinine Ratio 25.0 H (6-22) Glucose 100 (70-100) mg/dL Calcium 9.4 (8.4-10.2) mg/dL Total Bilirubin 0.5 (0.2-1.3) mg/dL AST 31 (17-59) IU/L ALT 30 (<50) IU/L Alkaline Phosphatase 66 (38-126) U/L Total Protein 7.6 (6.3-8.2) g/dL Albumin 4.5 (3.5-5.0) g/dL Globulin 3.1 (1.7-4.1) g/dL Albumin/Globulin Ratio 1.5 (1.0-2.8) Lipase 53 (23-300) U/L Point of care testing: Urine Dip Bedside Urine Glucose Negative Bedside Urine Bilirubin - Negative Bedside Urine Ketone - Negative Urine Specific [place] 1.010 Bedside Urine Occult Blood - Negative Bedside Urine pH 6.0 Bedside Urine Protein - Negative Bedside Urine Urobilinogen - Negative Bedside Urine Nitrite - Negative Bedside Urine Leukocytes - Negative Esterase MDM Narrative Medical decision making narrative: 43-year-old male with past medical history diverticulitis, status post colectomy, hyperlipidemia, gout present left upper quadrant pain that radiates back to the flank. Concern for nephrolithiasis versus diverticulitis versus other intra-abdominal pathology versus other. Will obtain UA, labs, lipase, CT abdomen pelvis. Will reassess. Labs within normal limits. UA without UTI. CT abdomen pelvis shows acute uncomplicated diverticulitis involving the colon at the splenic flexure. No extraluminal gas or organized fluid collections. There are tiny nonobstructing right renal stones. Discussed findings with patient. Prescribed antibiotics. Recommend progressing from a clear liquid diet to a normal diet over the next few days. Recommend follow-up with PCP. ED return precautions discussed with patient. Patient verbalized understanding. Medical records reviewed: Yes <Eugenie Jimenez, - Last Filed: 04/08/24 09:14> Lab Data Labs: Lab Results 04/04/24 Range/Units 14:41 WBC 11.0 (4.5-11.0) X10^3/uL RBC 4.87 (4.5-5.9) X10^6/uL Hgb 14.9 (13.5-17.5) g/dL Hct 44.2 (41-53) % MCV 90.8 (80-100) fL MCH 30.6 (26-34) PG MCHC 33.7 (30-36) % RDW 12.4 (11.6-14.8) % Plt Count 271 (150-400) X10^3/uL Neut % (Auto) 76.2 H (50-75) % Lymph % (Auto) 13.7 L (25-40) % [place] % (Auto) 8.7 (3-14) % Eos % (Auto) 0.9 L (2-4) % Baso % (Auto) 0.5 (0-2) % Neut # (Auto) 8400 H (4218-9188) /uL Lymph # (Auto) 1500 (5704-3909) /uL [place] # (Auto) 1000 H (0-900) /uL Eos # (Auto) 100 (0-450) /uL Baso # (Auto) 100 (0-100) /uL Sodium 137 (137-145) mmol/L Potassium 4.2 (3.4-5.1) mmol/L Chloride 103 (98-107) mmol/L Carbon Dioxide 26 (22-32) mmol/L BUN 21 H (9-20) mg/dL Creatinine 0.84 (0.66-1.25) mg/dL Estimated GFR > 60 (>60) mL/min BUN/Creatinine Ratio 25.0 H (6-22) Glucose 100 (70-100) mg/dL Calcium 9.4 (8.4-10.2) mg/dL Total Bilirubin 0.5 (0.2-1.3) mg/dL AST 31 (17-59) IU/L ALT 30 (<50) IU/L Alkaline Phosphatase 66 (38-126) U/L Total Protein 7.6 (6.3-8.2) g/dL Albumin 4.5 (3.5-5.0) g/dL Globulin 3.1 (1.7-4.1) g/dL Albumin/Globulin Ratio 1.5 (1.0-2.8) Lipase 53 (23-300) U/L Point of care testing: Urine Dip Bedside Urine Glucose Negative Bedside Urine Bilirubin - Negative Bedside Urine Ketone - Negative Urine Specific [place] 1.010 Bedside Urine Occult Blood - Negative Bedside Urine pH 6.0 Bedside Urine Protein - Negative Bedside Urine Urobilinogen - Negative Bedside Urine Nitrite - Negative Bedside Urine Leukocytes - Negative Esterase Discharge Plan Departure Patient Disposition: Home Clinical Impression: Diverticulitis Instructions: DI for Diverticulitis Activity Restrictions/Additional Instructions: You were evaluated in the ED today for abdominal pain. Your CT scan shows uncomplicated diverticulitis. You are being prescribed antibiotics. It is also advised to follow a clear liquid diet for the next few days, gradually advancing the diet to normal. Please follow-up with your PCP as soon as possible. Return to the ED if you have worsening symptoms. Prescriptions: New amoxicillin-pot clavulanate [Augmentin XR] 1,000-62.5 mg tablet extended release 12 hr 2 tab PO BID 5 Days Qty: 20 0RF Referrals: Neri Hernandez DO [Primary Care Provider] - Stand Alone Forms: Patient Portal/API/Survey ED Sign-out <Eugenie Jimenez DO - Last Filed: 04/08/24 09:14> Cosign ED Attending Costonyature Attestation: I was available for consultation.
--- NOTE | 2024-04-04 15:13 | DI.CT.S_ITS ---
PROCEDURE: CT ABDOMEN PELVIS W CON INDICATIONS: LUQ. flank pain TECHNIQUE: After the administration of intravenous contrast, axial sections acquired from the lung bases to the pubic symphysis. Coronal and sagittal reformats were performed. For radiation dose reduction, the following was used: automated exposure control, adjustment of mA and/or kV according to patient size. COMPARISON: [facility], CT, CT ABDOMEN PELVIS W CON, 07/29/2023, 23:32. FINDINGS: Image quality: Diagnostic. Lower Chest: Mild left greater than right bibasilar atelectasis. ABDOMEN: Liver: No solid mass. Gallbladder: No radiopaque gallstones or wall thickening. Biliary ducts: No biliary dilation. Pancreas: No ductal dilation. Spleen: Size is within normal limits. Adrenal Glands: No adrenal nodules. Kidneys and Ureters: Tiny nonobstructing right renal stones x2. No hydronephrosis. No solid mass. No complex renal cystic lesion which requires follow up. Stomach and Bowel: Diverticulosis is present. There is wall thickening and pericolonic inflammation involving the colon at the splenic flexure, most consistent with acute diverticulitis. No extraluminal gas or organized fluid collections. Normal appendix. Peritoneum: No abnormal intraperitoneal fluid. No free air. Ventral Wall: No significant ventral hernia. Abdominal Nodes: No retroperitoneal or mesenteric adenopathy by size criteria. Vessels: Aorta and inferior vena cava are normal in size. PELVIS: Pelvic Organs: Unremarkable. Bladder: No bladder wall thickening, accounting for underdistention. Pelvic Nodes: No enlarged lymph nodes. Miscellaneous: No inguinal hernias are seen. Bones: No aggressive osseous abnormality. IMPRESSION: 1. Acute uncomplicated diverticulitis involving the colon at the splenic flexure. No extraluminal gas or organized fluid collections. 2. Tiny nonobstructing right renal stones. Dictated by: Donn Jason M.D. on 04/04/2024 at 15:54 Approved by: Donn Jason M.D. on 04/04/2024 at 16:03
[2024-04-04 15:32] VITALS: BP 129/74; PULSE 58; RESP 16; O2SAT 100
[2024-04-04 16:39] VITALS: BP 114/73; PULSE 56; RESP 16; TEMP 36.6; O2SAT 99
== END 2024-04-04 16:37 | disposition home or self-care (01) ==
PROVIDERS: Emergency Medicine; Emergency Provider Student in an Organized Health Care Education/Training Program; PCP Family Medicine
DX: K57.92 Diverticulitis of intestine, part unspecified, without perforation or abscess without bleeding (principal); Z87.442 Personal history of urinary calculi
CPT/HCPCS: 36415; 74177; 80053; 81003; 83690; 85025; 93005; 99283; 99284; Q9967

== ENCOUNTER 2024-12-10 10:36 | Emergency (ER) | payer OTHER, SELFPAY ==
[2023-07-30 11:17] VITALS: BMI 24.6
[2024-12-10 10:42] VITALS: BP 126/74; PULSE 79; RESP 14; TEMP 36.1; O2SAT 98; BMI 27.4
--- NOTE | 2024-12-10 11:03 | DI.CT.S_ITS ---
PROCEDURE: CT ABDOMEN PELVIS W CON INDICATIONS: abd pain TECHNIQUE: After the administration of intravenous contrast, axial sections acquired from the lung bases to the pubic symphysis. Coronal and sagittal reformats were performed. For radiation dose reduction, the following was used: automated exposure control, adjustment of mA and/or kV according to patient size. COMPARISON: [facility], CT, CT ABDOMEN PELVIS W CON, 07/29/2023, 23:32. [facility], CT, CT ABDOMEN PELVIS W CON, 04/04/2024, 15:20. FINDINGS: Image quality: Diagnostic. Lower Chest: No significant findings. ABDOMEN: Liver: No solid mass. Gallbladder: No radiopaque gallstones or wall thickening. Biliary ducts: No biliary dilation. Pancreas: No ductal dilation. Spleen: Size is within normal limits. Adrenal Glands: No adrenal nodules. Kidneys and Ureters: No hydronephrosis. No solid mass. No complex renal cystic lesion which requires follow up. Tiny nonobstructing right-sided kidney stones are seen measuring up to 2 mm. Stomach and Bowel: There is a sigmoid anastomotic staple line. No focal abnormality is seen at this site. Scattered areas moderate the wall thickening can be seen involving the colon, including within the transverse colon and the distal colon. No dilated loops of small bowel are seen. A normal appendix is noted. Peritoneum: No peritoneal abscess is seen. No abnormal intraperitoneal fluid. No free air. Ventral Wall: Laxity of the anterior abdominal wall can be seen, with rectus diastasis. No jerome hernia. Abdominal Nodes: No retroperitoneal or mesenteric adenopathy by size criteria. Vessels: Aorta and inferior vena cava are normal in size. PELVIS: Pelvic Organs: Unremarkable. Bladder: No bladder wall thickening, accounting for underdistention. Pelvic Nodes: No enlarged lymph nodes. Miscellaneous: No inguinal hernias are seen. Bones: No aggressive osseous abnormality. IMPRESSION: Prior sigmoid resection, without a focal abnormality. Several areas moderate colonic wall thickening can be seen. Please correlate with inflammatory change. Differential diagnosis includes infection. No findings of perforation or abscess can be seen. Additional findings: Nonobstructing right-sided kidney stones Rectus diastasis Dictated by: Jovan Chambers M.D. on 12/10/2024 at 12:05 Approved by: Jovan Chambers M.D. on 12/10/2024 at 12:07
[2024-12-10] MEDS: LACTATED RINGERS 1,000 ML 1000 ML IV (11:24)
[2024-12-10] MEDS: KETOROLAC 30 MG/ML VIAL 15 MG IV (11:24)
--- NOTE | 2024-12-10 11:41 | ED.ABDPAIN ---
HPI - Abdominal Pain General Chief Complaint: Abdominal Pain Stated Complaint: Poss diverticulitis episode Time Seen by Provider: 12/10/24 10:39 Source: patient Mode of arrival: Ambulatory History of Present Illness HPI narrative: 44-year-old male with past medical history of diverticulitis status post colectomy dyslipidemia gout presents today with diffuse abdominal pain ongoing for the past 1-2 weeks with some loose stools and hard balls at time but no nausea, vomiting, chest pain, shortness of breath, cough, fever, chills, bodyaches, back pain, hematuria, rectal bleeding. Since he has had multiple episodes of diverticulitis and surgeries his abdomen feels a little bit numb he said today he wanted to get checked out since it is not getting any better. Other than what is stated 14 point review of system is negative. Related Data Previous Rx's ?Medication ?Instructions ?Recorded tamsulosin 0.4 mg capsule 0.4 mg PO BEDTIME #90 caps 11/21/24 Allergies Allergy/AdvReac Type Severity Reaction Status Date / Time No Known Drug Allergies Allergy Verified 12/10/24 10:45 Review of Systems Review of Systems ROS Unobtainable: All systems reviewed & are unremarkable except as noted in HPI and below Patient History Medical History BPH associated with nocturia Chronic headaches Low back strain History of gout History of kidney stones History of diverticulitis Family History Father Cancer Uncle Diabetes mellitus Grandfather Congestive heart failure Social History household members: spouse and children Smoking Status: Current every day smoker Tobacco: How many years used: 18 quit status: considering quitting (I would like to talk to Celina about starting Chanitix if it is an option.) second hand exposure: Yes ('a little bit) alcohol intake: current substance use type: marijuana (I smoke marijuana every day. ) Smoking Status: Current every day smoker tobacco type: cigarettes and vaping alcohol intake frequency: a few times a month Alcohol type: beer Exam Narrative Exam Narrative: GENERAL: [44] year old patient appears stated age. Well-developed patient, in mild distress. HEAD: Atraumatic. Normocephalic. EYES: Pupils equal round and reactive. Extraocular motions intact. No scleral icterus. No injection or drainage. ENT: Nose without bleeding, purulent drainage. Throat without erythema, tonsillar hypertrophy or exudate. Airway patent. NECK: Trachea midline. Non tender CARDIOVASCULAR: Regular rate and rhythm without murmurs, gallops, or rubs. RESPIRATORY: Clear to auscultation. Breath sounds equal bilaterally. No wheezes, rales, or rhonchi. GASTROINTESTINAL: Abdomen soft, LLQ TTP but no /r/r/g, nondistended. EXTREMITIES: No edema or joint tenderness. BACK: Nontender without deformity or crepitance. No flank tenderness. NEURO: AOx3. SKIN: No rash or erythema of visible areas Initial Vital Signs Initial Vital Signs: Vital Signs Temperature 97.0 F L 12/10/24 10:42 Pulse Rate 79 12/10/24 10:42 Respiratory Rate 14 12/10/24 10:42 Blood Pressure 126/74 12/10/24 10:42 Pulse Oximetry 98 12/10/24 10:42 Oxygen Delivery Method Room Air 12/10/24 10:42 Course Orders Ordered: ED Orders 12/10/24 10:49 Complete Blood Count AUTO DIFF Stat Comprehensive Metabolic Panel Stat Lipase Stat 12/10/24 11:03 CT abdomen pelvis w con Stat Lactated Ringer's (Lactated Ringers) 1,000 mls @ 1,000 mls/hr IV BOLUS ONE Stop: 12/10/24 12:02 Last Admin: 12/10/24 11:24 Dose: 1,000 mls/hr Documented By: Ondansetron HCl (Ondansetron 4 Mg/2 Ml Inj) 4 mg IV NOW PRN PRN Reason: Nausea And Vomiting Ondansetron HCl (Ondansetron 4 Mg Odt) 4 mg PO NOW PRN PRN Reason: Nausea And Vomiting Discontinued Medications Ketorolac Tromethamine (Ketorolac 30 Mg/Ml Vial) 15 mg IV NOW ONE Stop: 12/10/24 11:04 Last Admin: 12/10/24 11:24 Dose: 15 mg Documented By: Vital Signs Vital signs: Vital Signs - 8 hr 12/10/24 10:42 Temperature 97.0 F L Pulse Rate 79 Respiratory Rate 14 Blood Pressure 126/74 Pulse Oximetry 98 Oxygen Delivery Method Room Air MDM - Abdominal Pain Lab Data Point of care testing: Urine Dip Bedside Urine Glucose Negative Bedside Urine Bilirubin - Negative Bedside Urine Ketone - Negative Urine Specific [place] 1.015 Bedside Urine Occult Blood - Negative Bedside Urine pH 6.0 Bedside Urine Protein - Negative Bedside Urine Urobilinogen - Negative Bedside Urine Nitrite - Negative Bedside Urine Leukocytes - Negative Esterase Imaging Data CT scan - abdomen/pelvis: Radiologist's Impression: [address] [address] [address] Scan Report Signed Patient: Keyshawn العلي MR#: [id number] : 1980 Acct:[id number] Age/Sex: 44 / M Date of Service: 12/10/24 Loc: ED Accession Number: [id number] Procedure: CT abdomen pelvis w con Ordering Provider: Clayton Hathaway D.O. PROCEDURE: CT ABDOMEN PELVIS W CON INDICATIONS: abd pain TECHNIQUE: After the administration of intravenous contrast, axial sections acquired from the lung bases to the pubic symphysis. Coronal and sagittal reformats were performed. For radiation dose reduction, the following was used: automated exposure control, adjustment of mA and/or kV according to patient size. COMPARISON: [facility], CT, CT ABDOMEN PELVIS W CON, 07/29/2023, 23:32. [facility], CT, CT ABDOMEN PELVIS W CON, 04/04/2024, 15:20. FINDINGS: Image quality: Diagnostic. Lower Chest: No significant findings. ABDOMEN: Liver: No solid mass. Gallbladder: No radiopaque gallstones or wall thickening. Biliary ducts: No biliary dilation. Pancreas: No ductal dilation. Spleen: Size is within normal limits. Adrenal Glands: No adrenal nodules. Kidneys and Ureters: No hydronephrosis. No solid mass. No complex renal cystic lesion which requires follow up. Tiny nonobstructing right-sided kidney stones are seen measuring up to 2 mm. Stomach and Bowel: There is a sigmoid anastomotic staple line. No focal abnormality is seen at this site. Scattered areas moderate the wall thickening can be seen involving the colon, including within the transverse colon and the distal colon. No dilated loops of small bowel are seen. A normal appendix is noted. Peritoneum: No peritoneal abscess is seen. No abnormal intraperitoneal fluid. No free air. Ventral Wall: Laxity of the anterior abdominal wall can be seen, with rectus diastasis. No jerome hernia. Abdominal Nodes: No retroperitoneal or mesenteric adenopathy by size criteria. Vessels: Aorta and inferior vena cava are normal in size. PELVIS: Pelvic Organs: Unremarkable. Bladder: No bladder wall thickening, accounting for underdistention. Pelvic Nodes: No enlarged lymph nodes. Miscellaneous: No inguinal hernias are seen. Bones: No aggressive osseous abnormality. IMPRESSION: Prior sigmoid resection, without a focal abnormality. Several areas moderate colonic wall thickening can be seen. Please correlate with inflammatory change. Differential diagnosis includes infection. No findings of perforation or abscess can be seen. 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 Pt given LR 1L bolus, toradol here. WBC 7.0 Hg 15.1 hematocrit 44 platelet 257 Na 137 K 4.4 Cl 106 Co2 22 Bun 20 Cr 0.86 Glu 109. Differential dx - diverticulitis, constipation, sbo. CT scan showed prior sigmoid resection without focal abnormality. Several areas of moderate colonic wall thickening can be seen. Please correlate with inflammatory changes differential diagnosis includes infection. No findings of perforation or abscess can be seen. Case discussed with patient in light of of scan we will not start any antibiotics at this time and watchful waiting liquid diet advance as tolerated and to follow up with PCP in 1-2 weeks if no improvement in symptoms. Discharge Plan Departure Patient Disposition: Home Clinical Impression: Abdominal pain, acute, left lower quadrant Instructions: DI for Abdominal Pain-Adult Activity Restrictions/Additional Instructions: Return with new or worsening symptoms. Clear liquid diet advance as tolerated. Follow up with PCP in 1-2 weeks if no improvement in symptoms. Prescriptions: No Action tamsulosin 0.4 mg capsule 0.4 mg PO BEDTIME Qty: 90 3RF Referrals: Neri Hernandez DO [Primary Care Provider, [facility]] Stand Alone Forms: Patient Portal/API
[2024-12-10 12:28] LABS: Add Manual Diff / Slide Review NO; Hematocrit 44.0 % (41-53); Hemoglobin 15.1 g/dL (13.5-17.5); Lymphocytes Absolute Auto 1600 /uL (1100-4500); Mean Corpuscular HGB Conc 34.4 % (30-36); Mean Corpuscular Hemoglobin 31.0 PG (26-34); Mean Corpuscular Volume 90.2 fL (80-100); Platelet Count 257 X10^3/uL (150-400)
[2024-12-10 12:34] VITALS: BP 116/68; PULSE 54; RESP 16; O2SAT 99
[2024-12-10 12:34] LABS: Alanine Aminotransferase 29 IU/L (<50); Albumin 4.4 g/dL (3.5-5.0); Albumin Globulin Ratio 1.7 (1.0-2.8); Alkaline Phosphatase 54 U/L (38-126); Blood Urea Nitrogen 20 mg/dL (9-20); Calcium 9.2 mg/dL (8.4-10.2); Carbon Dioxide 22 mmol/L (22-32); Chloride 106 mmol/L (98-107); Estimated Glomerular Filt Rate > 60 mL/min (>60); Globulin 2.6 g/dL (1.7-4.1); Glucose 109 mg/dL (70-99); HEMOLYSIS 26 (0-50); Lipase 70 U/L (23-300); Potassium 4.4 mmol/L (3.4-5.1); Sodium 137 mmol/L (137-145); Total Protein 7.0 g/dL (6.3-8.2)
[2024-12-10 13:30] VITALS: BP 107/69; PULSE 55; RESP 14; O2SAT 97
== END 2024-12-10 13:31 | disposition home or self-care (01) ==
PROVIDERS: Emergency Provider Family Medicine; PCP Family Medicine
DX: R10.32 Left lower quadrant pain (principal)
CPT/HCPCS: 36415; 74177; 80053; 81003; 83690; 85025; 96361; 96374; 99284; J1885; Q9967